=== PATIENT | male | born 1970 | race Hispanic/Latino ===

== ENCOUNTER 2018-05-01 07:42 | Emergency (ER) | payer OTHER ==
[~2018-05-01 07:42] MED LIST: LACT10SO9 PO
[2018-05-01] MEDS ORDERED: SODIUM CHLORIDE 0.9% 500ML 500 ML IV ONE (07:59)
[2018-05-01 08:13] LABS: BASOPHILS % (AUTO) 0.4 % (0.0-5.0); EOSINOPHILS % (AUTO) 0.2 % (0.0-8.0); HEMATOCRIT 27.3 % (42-54); LYMPHOCYTES % (AUTO) 4.8 % (21.0-51.0); MEAN CORPUSCULAR HEMOGLOBIN 26.7 pg (27.0-33.0); MEAN CORPUSCULAR HGB CONC 30.2 g/dL (32.0-36.0); MEAN CORPUSCULAR VOLUME 88.3 fL (79-99); MONOCYTES % (AUTO) 9.2 % (3.0-13.0); NEUTROPHILS % (AUTO) 85.4 % (40.0-77.0); PLATELET COUNT (AUTO) 349 K/uL (130-400); RED BLOOD CELL COUNT(AUTO) 3.09 MIL/uL (4.50-6.20); RED CELL DISTRIBUTION WIDTH 16.3 % (11.0-15.5); WHITE BLOOD COUNT (AUTO) 26.4 K/uL (4.8-10.8)
[2018-05-01 08:23] LABS: CARBON DIOXIDE 16 mmol/L (21-32); CHLORIDE 93 mmol/L (101-111); CREATININE 1.5 mg/dL (0.5-1.5); GLOMERULAR FILTR. RATE CALC 54 mL/min (>60); GLUCOSE,RANDOM 135 mg/dL (70-105); POTASSIUM 3.7 mmol/L (3.5-5.1); SODIUM SERUM 125 mmol/L (136-145); UREA NITROGEN, BLOOD 7 mg/dL (7-18)
[2018-05-01 08:24] LABS: APPEARANCE,URINE Cloudy (CLEAR); BILIRUBIN,URINE Moderate (NEGATIVE); COLOR,URINE Dark Yellow (YELLOW); GLUCOSE, URINE (UA) Negative (NEGATIVE); KETONES,URINE Negative (NEGATIVE); LEUKOCYTE ESTERASE ,URINE Trace (NEGATIVE); NITRATE,URINE Negative (NEGATIVE); OCCULT BLOOD,URINE Negative (NEGATIVE); PROTEIN,URINE POS 2+ (NEGATIVE)
[2018-05-01] MEDS ORDERED: MIDAZOLAM HCL 1 MG/ML 2ML VIAL ONE (08:25)
[2018-05-01 08:27] LABS: ALANINE AMINOTRANSFERASE 55 U/L (12-78); ALBUMIN 1.8 g/dL (3.5-5.0); ASPARTATE AMINOTRANSFERASE 189 U/L (10-37); BILIRUBIN,TOTAL 4.8 mg/dL (0.2-1.0); LIPASE 75 U/L (114-286); TOTAL PROTEIN, SERUM 7.7 g/dL (6.0-8.3)
[2018-05-01] MEDS ORDERED: PROPOFOL 1000 MG/100 ML 100 ML IV ONE ×2 (08:29→09:05)
[2018-05-01 08:32] LABS: AMPHET/METH SCREEN,URINE NEGATIVE (NEGATIVE); BARBITURATE SCREEN, URINE NEGATIVE (NEGATIVE); BENZODIAZEPINES SCREEN,URINE NEGATIVE (NEGATIVE); CANNABINOID SCREEN,URINE NEGATIVE (NEGATIVE); COCAINE SCREEN,URINE NEGATIVE (NEGATIVE); OPIATE SCREEN,URINE POSITIVE (NEGATIVE); PHENCYCLIDINE SCREEN,URINE NEGATIVE (NEGATIVE)
[2018-05-01 08:32] LABS: ALCOHOL, BLOOD < 3 mg/dL (0-10); AMMONIA 114 umol/L (11-32)
[2018-05-01 08:39] LABS: BACTERIA,URINE None Seen /HPF (None Seen); RBC,URINE 0-1 /HPF (0-1); SQUAMOUS EPITHELIAL CELL,UR 0-2 /HPF (0-2); WBC,URINE 0-1 /HPF (0-1)
[2018-05-01 08:40] LABS: AMORPHOUS SEDIMENT,UR Moderate /LPF (None Seen); HYALINE CASTS, URINE 0-1 /LPF (0-1 /LPF)
[2018-05-01 08:40] LABS: CREATINE KINASE MB 2.4 ng/mL (0.5-3.6); TROPONIN I 0.06 ng/mL (0.00-0.06)
[2018-05-01] MEDS ORDERED: SODIUM CHLORIDE 0.9% 100 ML IV ONE ×2 (08:49→12:04)
[2018-05-01] MEDS ORDERED: ZOSYN 3.375GM+NS 50ML 50 ML IV ONE (08:49)
[2018-05-01] MEDS ORDERED: CEFTRIAXONE SODIUM 1 GM ONE (08:49)
[2018-05-01] MEDS ORDERED: SODIUM CHLORIDE 0.9% 1000ML 1,000 ML IV ONE ×3 (08:54→12:26)
[2018-05-01 09:11] LABS: ABG BASE EXCESS -11.8 mmol/L (-2.0-3.0); ABG HCO3 15.8 mmol/L (21.0-28.0); ABG OXYGEN SATURATION 99.8 % (95.0-99.0); ABG PCO2 42 mmHg (35-48)
[2018-05-01] MEDS ORDERED: MIDAZOLAM HCL 5 MG/ML 2ML VIAL IV ONE (09:32)
[2018-05-01] MEDS ORDERED: MIDAZOLAM 100MG-0.9% NS 100ML 100 ML IV PRN (10:00)
[2018-05-01] MEDS ORDERED: SODIUM CHLORIDE 0.9% 250 ML IV ONE (10:35)
[2018-05-01] MEDS ORDERED: NOREPINEPHRINE BITARTRATE 1 MG/1 ML ML IV ONE (10:35)
[2018-05-01] MEDS ORDERED: FAMOTIDINE/PF 20 MG/2 ML VIAL IV ONE (12:02)
[2018-05-01] MEDS ORDERED: FOSPHENYTOIN SODIUM 500 MG/10ML VIAL IJ ONE (12:03)
[2018-05-01 14:37] LABS: POTASSIUM 3.1 mmol/L (3.5-5.1)
[2018-05-01] MEDS ORDERED: PROPOFOL 1000 MG/100 ML 100 ML IV PRN (18:15)
== END 2018-05-01 15:13 | disposition short-term general hospital (02) ==
LOC: EDH 07:42
DX: A41.9 Sepsis, unspecified organism (principal); R65.20 Severe sepsis without septic shock; G40.901 Epilepsy, unspecified, not intractable, with status epilepticus; J18.9 Pneumonia, unspecified organism; F10.10 Alcohol abuse, uncomplicated
CPT/HCPCS: 31500; 36415; 36600; 70450; 71045 ×2; 80048; 80053; 80305; 81001; 82140; 82270; 82550; 82553; 82803; 83605 ×3; 83690; 83874; 84484; 85025; 87040 ×2; 87071; 87106; 87205; 93005; 96361; 96365; 96374; 96375; 99291; 99292; G0480; J0696; J2250; J2543; J2704 ×2; J3490 ×2; J7030 ×4; J7040; Q2009; 94002

== ENCOUNTER 2018-09-28 08:44 | Emergency (ER) | payer SELFPAY | END 2018-09-28 10:53 | disposition home or self-care (01) | LOC: EDH 08:44 | DX: S63.501A Unspecified sprain of right wrist, initial encounter (principal); S60.221A Contusion of right hand, initial encounter; F10.10 Alcohol abuse, uncomplicated; Z72.0 Tobacco use; W11.XXXA Fall on and from ladder, initial encounter; Y93.89 Activity, other specified; Y92.89 Other specified places as the place of occurrence of the external cause; Y99.8 Other external cause status | CPT/HCPCS: 70450; 73090; 73110; 73130 ==

== ENCOUNTER 2018-10-31 14:30 | Emergency (ER) | payer SELFPAY ==
[2018-10-31] MEDS ORDERED: LACTATED RINGERS 1000ML 1,000 ML IV ONE ×2 (16:08→16:52)
[2018-10-31 16:15] LABS: BASOPHILS % (AUTO) 0.9 % (0.0-5.0); EOSINOPHILS % (AUTO) 3.1 % (0.0-8.0); HEMATOCRIT 27.5 % (42-54); LYMPHOCYTES % (AUTO) 30.1 % (21.0-51.0); MEAN CORPUSCULAR HEMOGLOBIN 26.7 pg (27.0-33.0); MEAN CORPUSCULAR HGB CONC 32.7 g/dL (32.0-36.0); MEAN CORPUSCULAR VOLUME 81.6 fL (79-99); MONOCYTES % (AUTO) 17.7 % (3.0-13.0); NEUTROPHILS % (AUTO) 48.2 % (40.0-77.0); NUCLEATED RED BLOOD CELLS 0.1 % (0.0-0.19); PLATELET COUNT (AUTO) 78 K/uL (130-400); RED BLOOD CELL COUNT(AUTO) 3.37 MIL/uL (4.50-6.20); RED CELL DISTRIBUTION WIDTH 18.6 % (11.0-15.5); WHITE BLOOD COUNT (AUTO) 5.5 K/uL (4.8-10.8)
[2018-10-31 16:23] LABS: CREATININE 0.9 mg/dL (0.5-1.5); POTASSIUM 3.5 mmol/L (3.5-5.1)
[2018-10-31 16:25] LABS: INR 1.19 (0.85-1.15); PARTIAL THROMBOPLASTIN TIME 30.8 SEC (26.3-35.5); PROTHROMBIN TIME 12.5 SEC (9.6-11.6)
[2018-10-31 16:46] LABS: ALBUMIN 2.8 g/dL (3.5-5.0); BILIRUBIN,TOTAL 2.4 mg/dL (0.2-1.0); MAGNESIUM 1.8 mg/dL (1.80-2.40); TOTAL PROTEIN, SERUM 8.5 g/dL (6.0-8.3)
[2018-10-31 18:17] LABS: APPEARANCE,URINE Clear (CLEAR); BILIRUBIN,URINE Negative (NEGATIVE); COLOR,URINE Yellow (YELLOW); GLUCOSE, URINE (UA) Negative (NEGATIVE); KETONES,URINE Trace mg/dL (NEGATIVE); LEUKOCYTE ESTERASE ,URINE Negative (NEGATIVE); NITRATE,URINE Negative (NEGATIVE); OCCULT BLOOD,URINE Negative (NEGATIVE); PH,URINE 6.5 (5.0-8.0); PROTEIN,URINE Negative (NEGATIVE)
[2018-10-31 18:25] LABS: AMPHET/METH SCREEN,URINE NEGATIVE (NEGATIVE); BARBITURATE SCREEN, URINE NEGATIVE (NEGATIVE); BENZODIAZEPINES SCREEN,URINE NEGATIVE (NEGATIVE); CANNABINOID SCREEN,URINE NEGATIVE (NEGATIVE); COCAINE SCREEN,URINE POSITIVE (NEGATIVE); OPIATE SCREEN,URINE NEGATIVE (NEGATIVE); PHENCYCLIDINE SCREEN,URINE NEGATIVE (NEGATIVE)
== END 2018-10-31 17:52 | disposition left against medical advice (07) ==
LOC: EDH 14:30
DX: M62.82 Rhabdomyolysis (principal); F10.10 Alcohol abuse, uncomplicated; F41.9 Anxiety disorder, unspecified; R79.1 Abnormal coagulation profile; Z72.0 Tobacco use; Z79.899 Other long term (current) drug therapy
CPT/HCPCS: 36415; 80053; 80305; 81003; 82550; 83735; 84484; 85025; 85610; 85730; 93005; 96360; 96361; 99284; G0480; J7120 ×2

== ENCOUNTER 2018-11-27 15:56 | Emergency (ER) | payer OTHER | END 2018-11-27 16:42 | disposition home or self-care (01) | LOC: EDH 15:56 | DX: S82.832A Other fracture of upper and lower end of left fibula, initial encounter for closed fracture (principal); F41.9 Anxiety disorder, unspecified; K74.60 Unspecified cirrhosis of liver; Z72.0 Tobacco use; Y00.XXXA Assault by blunt object, initial encounter; Y93.89 Activity, other specified; Y92.098 Other place in other non-institutional residence as the place of occurrence of the external cause; Y99.8 Other external cause status | CPT/HCPCS: 29515; 73610 ==

== ENCOUNTER 2019-07-01 21:36 | Emergency (ER) | payer SELFPAY | END 2019-07-01 23:27 | disposition left against medical advice (07) | LOC: EDH 21:36 | DX: S09.8XXA Other specified injuries of head, initial encounter (principal); M54.9 Dorsalgia, unspecified; F41.9 Anxiety disorder, unspecified; K74.60 Unspecified cirrhosis of liver; Y04.0XXA Assault by unarmed brawl or fight, initial encounter; Y93.89 Activity, other specified; Y92.89 Other specified places as the place of occurrence of the external cause; Y99.8 Other external cause status ==

== ENCOUNTER 2019-07-04 11:10 | Inpatient (IN) | payer OTHER ==
[~2019-07-04] VITALS: Ht 175.3 cm; Wt 79.3 kg
[2019-07-04] MEDS ORDERED: LORAZEPAM 2 MG/ML 1 ML VIAL ONE (11:13)
[2019-07-04 11:28] LABS: BASOPHILS % (AUTO) 1.1 % (0.0-5.0); EOSINOPHILS % (AUTO) 2.9 % (0.0-8.0); HEMATOCRIT 35.2 % (42-54); LYMPHOCYTES % (AUTO) 26.2 % (21.0-51.0); MEAN CORPUSCULAR HEMOGLOBIN 30.5 pg (27.0-33.0); MEAN CORPUSCULAR HGB CONC 33.6 g/dL (32.0-36.0); MEAN CORPUSCULAR VOLUME 90.9 fL (79-99); MONOCYTES % (AUTO) 12.1 % (3.0-13.0); NEUTROPHILS % (AUTO) 57.7 % (40.0-77.0); NUCLEATED RED BLOOD CELLS 0.1 % (0.0-0.19); PLATELET COUNT (AUTO) 56 K/uL (130-400); RED BLOOD CELL COUNT(AUTO) 3.87 MIL/uL (4.50-6.20); WHITE BLOOD COUNT (AUTO) 7.1 K/uL (4.8-10.8)
[2019-07-04] MEDS ORDERED: FOSPHENYTOIN SODIUM 500 MG/10ML VIAL IJ ONE (11:39)
[2019-07-04] MEDS ORDERED: SODIUM CHLORIDE 0.9% 250 ML IV ONE (11:41)
[2019-07-04 11:46] LABS: CREATININE 0.8 mg/dL (0.5-1.5); POTASSIUM 3.7 mmol/L (3.5-5.1)
[2019-07-04 11:48] LABS: INR 1.13 (0.85-1.15); PARTIAL THROMBOPLASTIN TIME 27.5 SEC (26.3-35.5); PROTHROMBIN TIME 11.8 SEC (9.6-11.6)
[2019-07-04 11:51] LABS: ALBUMIN 3.3 g/dL (3.5-5.0); BILIRUBIN,TOTAL 1.5 mg/dL (0.2-1.0); TOTAL PROTEIN, SERUM 8.7 g/dL (6.0-8.3)
[2019-07-04 14:29] LABS: AMPHET/METH SCREEN,URINE NEGATIVE (NEGATIVE); BARBITURATE SCREEN, URINE NEGATIVE (NEGATIVE); BENZODIAZEPINES SCREEN,URINE NEGATIVE (NEGATIVE); CANNABINOID SCREEN,URINE NEGATIVE (NEGATIVE); COCAINE SCREEN,URINE NEGATIVE (NEGATIVE); OPIATE SCREEN,URINE NEGATIVE (NEGATIVE); PHENCYCLIDINE SCREEN,URINE NEGATIVE (NEGATIVE)
[2019-07-04 16:40] VITALS: BP 137/84
[2019-07-04] MEDS ORDERED: SODIUM CHLORIDE 0.9% 1000ML 1,000 ML IV ONE (17:00)
[2019-07-04 19:00] VITALS: BP 150/91
[2019-07-04] MEDS ORDERED: CHLORDIAZEPOXIDE HCL 25 MG CAP PO PRN ×2 (19:45)
[2019-07-04] MEDS ORDERED: LORAZEPAM 2 MG/ML 1 ML VIAL IVP PRN ×2 (19:45)
[2019-07-04] MEDS ORDERED: PHARMACY COMMUNICATION MISC PRN (19:45)
[2019-07-04] MEDS ORDERED: THIAMINE HCL 100 MG, FOLIC ACID 1 MG, M.V.I. IV [ADULT] 10 ML in SODIUM CHLORIDE 0.9% 1... IV SCH (19:45)
[2019-07-04] MEDS ORDERED: ONDANSETRON HCL 4 MG/2 ML VIAL IV PRN (19:45)
--- NOTE | 2019-07-04 20:30 | NUR ---
Called [facility] pharmacy to request med list, location closed for the evening. Reported to Mario Blake RN, nightshift to follow up with pharmacy list for home medications to be entered and reconciled in AM. Addendum: 07/04/19 at 2121 by EVIN ROBERTSON RN RN [facility] pharmacy in [place], [place].
[2019-07-05] VITALS: BP 151/80
[2019-07-05 04:00] VITALS: BP 143/83
[2019-07-05] MEDS ORDERED: 1/2 NORMAL SALINE 1,000 ML IV SCH (04:00)
[2019-07-05 05:32] LABS: CREATININE 0.8 mg/dL (0.5-1.5); POTASSIUM 3.5 mmol/L (3.5-5.1)
[2019-07-05] MEDS ORDERED: POTASSIUM CHLORIDE 20MEQ/100ML 100 ML IV PRN (05:45)
[2019-07-05] MEDS ORDERED: POTASSIUM CHLORIDE 10% ELIXIR 20 MEQ/15 ML UDCUP PO PRN (05:45)
[2019-07-05] MEDS ORDERED: LIDOCAINE HCL-MPF 1% 2ML VIAL IV PRN (05:45)
[2019-07-05] MEDS ORDERED: POTASSIUM CHLORIDE 20 MEQ ERTAB PO PRN (05:45)
[2019-07-05 08:00] VITALS: BP 152/86
[2019-07-05] MEDS ORDERED: THIAMINE HCL 100 MG TABLET PO SCH (09:00)
[2019-07-05] MEDS ORDERED: ENOXAPARIN SODIUM 40 MG/0.4 ML SYRINGE SQ SCH (09:00)
[2019-07-05] MEDS ORDERED: FAMOTIDINE 20MG TAB 20 MG TAB PO SCH (09:00)
[2019-07-05] MEDS ORDERED: FLU VACC QS2019-20 36MOS UP/PF 60 MCG/0.5 ML ML IM ONE (09:00)
[2019-07-05] MEDS ORDERED: FLU VACC QUAD 2019-20(6MOS UP) 60 MCG/0.5 ML VIAL IM SCH (09:00)
[2019-07-05 11:58] VITALS: BP 145/68
--- NOTE | 2019-07-05 12:00 | NUR ---
ANGELO NOTES PT IN RESTROOM EARLIER, WILL TRY AGAIN LATER, TRIGGERS TO CM Addendum: 07/07/19 at 1201 by DILMA CHEN RN CM Amended: Links added.
[2019-07-05] MEDS ORDERED: LEVETIRACETAM 500 MG TABLET PO SCH (13:15)
[2019-07-05 16:00] VITALS: BP 147/89
--- NOTE | 2019-07-05 19:08 | NUR ---
pt decided not to stay and left AMA. in no distress, does not want to wait for tomorrow, states feels in good condition to leave home ama. at bedside.
== END 2019-07-05 19:08 | disposition left against medical advice (07) | DRG 101 ==
LOC: EDH 11:10 → OBSVTOIN 11:11 → EDHIP 11:11 → 3BH 16:48
PROVIDERS: ADMIT Family Medicine; ATTEND Family Medicine
DX: G40.509 Epileptic seizures related to external causes, not intractable, without status epilepticus (principal); S09.90XA Unspecified injury of head, initial encounter; X58.XXXA Exposure to other specified factors, initial encounter; K74.60 Unspecified cirrhosis of liver; Y90.4 Blood alcohol level of 80-99 mg/100 ml; F10.20 Alcohol dependence, uncomplicated; Z91.14 Patient's other noncompliance with medication regimen; Y93.89 Activity, other specified; Y92.89 Other specified places as the place of occurrence of the external cause; Y99.8 Other external cause status; Z23 Encounter for immunization
CPT/HCPCS: 36415; 70450; 70486; 72125; 80048; 80053; 80305; 85025; 85610; 85730; G0378; G0480; J1650; J2060; J3411; J3490; J7030; Q2009; Q2036

== ENCOUNTER 2019-07-16 17:31 | Emergency (ER) | payer SELFPAY ==
[2019-07-16 18:03] LABS: BASOPHILS % (AUTO) 3.5 % (0.0-5.0); EOSINOPHILS % (AUTO) 4.1 % (0.0-8.0); HEMATOCRIT 32.2 % (42-54); MEAN CORPUSCULAR HEMOGLOBIN 30.9 pg (27.0-33.0); MEAN CORPUSCULAR HGB CONC 33.8 g/dL (32.0-36.0); MEAN CORPUSCULAR VOLUME 91.5 fL (79-99); MONOCYTES % (AUTO) 10.8 % (3.0-13.0); NEUTROPHILS % (AUTO) 41.6 % (40.0-77.0); PLATELET COUNT (AUTO) 118 K/uL (130-400); RED BLOOD CELL COUNT(AUTO) 3.52 MIL/uL (4.50-6.20); RED CELL DISTRIBUTION WIDTH 16.3 % (11.0-15.5)
[2019-07-16 18:16] LABS: CREATININE 0.7 mg/dL (0.5-1.5); POTASSIUM 3.7 mmol/L (3.5-5.1)
[2019-07-16 18:18] LABS: APPEARANCE,URINE Clear (CLEAR); BILIRUBIN,URINE Negative (NEGATIVE); COLOR,URINE Yellow (YELLOW); GLUCOSE, URINE (UA) Negative (NEGATIVE); KETONES,URINE Negative (NEGATIVE); LEUKOCYTE ESTERASE ,URINE Negative (NEGATIVE); NITRATE,URINE Negative (NEGATIVE); OCCULT BLOOD,URINE Negative (NEGATIVE); PROTEIN,URINE Negative (NEGATIVE)
[2019-07-16 18:21] LABS: ALBUMIN 2.9 g/dL (3.5-5.0)
[2019-07-16 18:23] LABS: AMPHET/METH SCREEN,URINE NEGATIVE (NEGATIVE); BARBITURATE SCREEN, URINE NEGATIVE (NEGATIVE); BENZODIAZEPINES SCREEN,URINE NEGATIVE (NEGATIVE); CANNABINOID SCREEN,URINE NEGATIVE (NEGATIVE); COCAINE SCREEN,URINE NEGATIVE (NEGATIVE); OPIATE SCREEN,URINE NEGATIVE (NEGATIVE); PHENCYCLIDINE SCREEN,URINE NEGATIVE (NEGATIVE)
[2019-07-16] MEDS ORDERED: LEVETIRACETAM 500 MG TABLET PO ONE (18:29)
== END 2019-07-16 19:00 | disposition left against medical advice (07) ==
LOC: EDH 17:31
DX: S02.2XXA Fracture of nasal bones, initial encounter for closed fracture (principal); G40.909 Epilepsy, unspecified, not intractable, without status epilepticus; R03.0 Elevated blood-pressure reading, without diagnosis of hypertension; Z91.14 Patient's other noncompliance with medication regimen; X58.XXXA Exposure to other specified factors, initial encounter; Y93.89 Activity, other specified; Y92.89 Other specified places as the place of occurrence of the external cause; Y99.8 Other external cause status
CPT/HCPCS: 36415; 70450; 70486; 80053; 80305; 81003; 85025; 93005

== ENCOUNTER 2019-09-30 15:40 | Emergency (ER) | payer SELFPAY ==
[2019-09-30] MEDS ORDERED: LEVETIRACETAM 500 MG TABLET PO ONE ×2 (16:23→16:25)
== END 2019-09-30 17:21 | disposition home or self-care (01) ==
LOC: EDH 15:40
DX: G40.509 Epileptic seizures related to external causes, not intractable, without status epilepticus (principal); F41.9 Anxiety disorder, unspecified; Z72.0 Tobacco use

== ENCOUNTER 2019-11-17 17:12 | Emergency (ER) | payer SELFPAY ==
[2019-11-17] MEDS ORDERED: THIAMINE HCL 100 MG/ML 2ML VIAL ONE (18:40)
[2019-11-17] MEDS ORDERED: LEVETIRACETAM 500 MG TABLET PO ONE (18:44)
== END 2019-11-17 19:23 | disposition home or self-care (01) ==
LOC: EDH 17:12
DX: G40.89 Other seizures (principal); F10.10 Alcohol abuse, uncomplicated; F41.9 Anxiety disorder, unspecified; Z79.899 Other long term (current) drug therapy
CPT/HCPCS: 96374; 99283; J3411

== ENCOUNTER 2019-11-22 11:09 | Inpatient (IN) | payer OTHER ==
[~2019-11-22] VITALS: Ht 175.3 cm; Wt 83.1 kg
[2019-11-22] MEDS ORDERED: CEFTRIAXONE SODIUM 2 GM VIAL ONE (11:33)
[2019-11-22] MEDS ORDERED: FOSPHENYTOIN SODIUM 500 MG/10ML VIAL IJ ONE (11:34)
[2019-11-22] MEDS ORDERED: SODIUM CHLORIDE 0.9% 1000ML 1,000 ML IV ONE ×2 (11:34→20:40)
[2019-11-22] MEDS ORDERED: SODIUM CHLORIDE 0.9% 250 ML IV ONE (11:35)
[2019-11-22 11:56] LABS: BASOPHILS % (AUTO) 1.4 % (0.0-5.0); EOSINOPHILS % (AUTO) 0.4 % (0.0-8.0); LYMPHOCYTES % (AUTO) 5.1 % (21.0-51.0); MEAN CORPUSCULAR HEMOGLOBIN 26.2 pg (27.0-33.0); MEAN CORPUSCULAR HGB CONC 32.1 g/dL (32.0-36.0); MEAN CORPUSCULAR VOLUME 81.7 fL (79-99); MONOCYTES % (AUTO) 8.5 % (3.0-13.0); NEUTROPHILS % (AUTO) 84.2 % (40.0-77.0); PLATELET COUNT (AUTO) 43 K/uL (130-400); RED BLOOD CELL COUNT(AUTO) 3.55 MIL/uL (4.50-6.20); RED CELL DISTRIBUTION WIDTH 18.8 % (11.0-15.5); WHITE BLOOD COUNT (AUTO) 5.1 K/uL (4.8-10.8)
[2019-11-22 11:57] LABS: CARBON DIOXIDE 21 mmol/L (21-32); CHLORIDE 100 mmol/L (101-111); GLOMERULAR FILTR. RATE CALC 85 mL/min (>60); GLUCOSE,RANDOM 107 mg/dL (70-105); POTASSIUM 3.6 mmol/L (3.5-5.1); SODIUM SERUM 137 mmol/L (136-145); UREA NITROGEN, BLOOD 6 mg/dL (7-18)
[2019-11-22 12:09] LABS: INR 1.16 (0.85-1.15); PARTIAL THROMBOPLASTIN TIME 25.6 SEC (26.3-35.5); PROTHROMBIN TIME 12.5 SEC (9.6-11.6)
[2019-11-22 12:10] LABS: RAPID GROUP A STREP NEGATIVE (NEGATIVE)
[2019-11-22] MEDS ORDERED: LORAZEPAM 2 MG/ML 1 ML VIAL ONE (12:16)
[2019-11-22] MEDS ORDERED: ACETAMINOPHEN 650 MG SUPPOSITORY RC ONE (12:16)
[2019-11-22 12:22] LABS: ALANINE AMINOTRANSFERASE 44 U/L (12-78); ALBUMIN 3.3 g/dL (3.5-5.0); ASPARTATE AMINOTRANSFERASE 143 U/L (10-37); BILIRUBIN,TOTAL 2.2 mg/dL (0.2-1.0); MYOGLOBIN 318 ng/mL (10-92); TROPONIN I < 0.04 ng/mL (0.00-0.06)
[2019-11-22 12:24] LABS: APPEARANCE,URINE Clear (CLEAR); BILIRUBIN,URINE Negative (NEGATIVE); COLOR,URINE Yellow (YELLOW); GLUCOSE, URINE (UA) Negative (NEGATIVE); KETONES,URINE Trace mg/dL (NEGATIVE); LEUKOCYTE ESTERASE ,URINE Negative (NEGATIVE); NITRATE,URINE Negative (NEGATIVE); OCCULT BLOOD,URINE Trace (NEGATIVE); PROTEIN,URINE POS 1+ mg/dL (NEGATIVE)
[2019-11-22 12:24] LABS: CREATINE KINASE, TOTAL 1727 U/L (21-232)
[2019-11-22 12:30] LABS: AMPHET/METH SCREEN,URINE NEGATIVE (NEGATIVE); BARBITURATE SCREEN, URINE NEGATIVE (NEGATIVE); BENZODIAZEPINES SCREEN,URINE NEGATIVE (NEGATIVE); CANNABINOID SCREEN,URINE NEGATIVE (NEGATIVE); COCAINE SCREEN,URINE NEGATIVE (NEGATIVE); OPIATE SCREEN,URINE NEGATIVE (NEGATIVE); PHENCYCLIDINE SCREEN,URINE NEGATIVE (NEGATIVE)
[2019-11-22 12:43] LABS: BACTERIA,URINE Rare /HPF (None Seen); RBC,URINE 0-1 /HPF (0-1); SQUAMOUS EPITHELIAL CELL,UR Rare /HPF (0-2); WBC,URINE 0-1 /HPF (0-1)
[2019-11-22] MEDS ORDERED: ACETAMINOPHEN EXTRA STRENGTH 500 MG TABLET ONE (15:57)
[2019-11-22] MEDS: SODIUM CHLORIDE 0.9% 1000ML 1,000 ML IV SCH (17:23)
[2019-11-22] MEDS: CEFTRIAXONE SODIUM 1 GM IV SCH (17:30)
[2019-11-22] MEDS: THIAMINE HCL 100 MG, FOLIC ACID 1 MG, M.V.I. IV [ADULT] 10 ML in SODIUM CHLORIDE 0.9% 1... IV SCH (17:30)
[2019-11-22] MEDS ORDERED: ACETAMINOPHEN-CODEINE 300/30MG TAB PO PRN (17:30)
[2019-11-22] MEDS ORDERED: ONDANSETRON HCL 4 MG/2 ML VIAL IV PRN (17:30)
[2019-11-22] MEDS ORDERED: ACETAMINOPHEN 325 MG TAB PO PRN (17:30)
[2019-11-22] MEDS ORDERED: HYDRALAZINE HCL 20 MG/ML VIAL IV PRN (17:30)
[2019-11-22] MEDS ORDERED: PHARMACY COMMUNICATION MISC PRN (17:30)
[2019-11-22 18:31] LABS: MAGNESIUM 1.4 mg/dL (1.80-2.40); PHOSPHORUS 2.2 mg/dL (2.5-4.9)
[2019-11-22] MEDS: LEVOFLOXACIN 500 MG/D5W 100 ML 100 ML IV SCH (20:00)
[2019-11-22 20:25] LABS: ABG BASE EXCESS 4.5 mmol/L (-2.0-3.0); ABG HCO3 26.8 mmol/L (21.0-28.0); ABG OXYGEN SATURATION 95.5 % (95.0-99.0); ABG PCO2 33 mmHg (35-48)
[2019-11-22] MEDS ORDERED: LEVOFLOXACIN 500 MG/D5W 100 ML 100 ML ONE (20:38)
[2019-11-22] MEDS ORDERED: FAMOTIDINE/PF 20 MG/2 ML VIAL IV ONE (20:40)
[2019-11-22] MEDS: FAMOTIDINE/PF 20 MG/2 ML VIAL IV SCH (21:00)
[2019-11-22] MEDS ORDERED: MAGNESIUM 2GM PREMIX 50ML 50 ML IV ONE (21:34)
[2019-11-22 22:09] LABS: AMMONIA 37 umol/L (11-32)
[2019-11-22 22:38] VITALS: BP 137/82
[2019-11-23] MEDS: CHLORDIAZEPOXIDE HCL 25 MG CAP PO PRN ×3 (00:53→23:22)
[2019-11-23 03:12] VITALS: BP 152/82
[2019-11-23] MEDS: SODIUM CHLORIDE 0.9% 1000ML 1,000 ML IV SCH ×3 (03:23→23:23)
[2019-11-23 05:15] LABS: BASOPHILS % (AUTO) 1.1 % (0.0-5.0); EOSINOPHILS % (AUTO) 0.2 % (0.0-8.0); HEMATOCRIT 31.8 % (42-54); LYMPHOCYTES % (AUTO) 17.8 % (21.0-51.0); MEAN CORPUSCULAR HEMOGLOBIN 26.4 pg (27.0-33.0); MEAN CORPUSCULAR HGB CONC 32.1 g/dL (32.0-36.0); MEAN CORPUSCULAR VOLUME 82.4 fL (79-99); MONOCYTES % (AUTO) 19.5 % (3.0-13.0); NEUTROPHILS % (AUTO) 61.2 % (40.0-77.0); NUCLEATED RED BLOOD CELLS 0.3 % (0.0-0.19); PLATELET COUNT (AUTO) 43 K/uL (130-400); RED BLOOD CELL COUNT(AUTO) 3.86 MIL/uL (4.50-6.20); RED CELL DISTRIBUTION WIDTH 18.6 % (11.0-15.5); WHITE BLOOD COUNT (AUTO) 6.4 K/uL (4.8-10.8)
[2019-11-23 05:26] LABS: BILIRUBIN,TOTAL 3.2 mg/dL (0.2-1.0); CREATININE 0.8 mg/dL (0.5-1.5); TOTAL PROTEIN, SERUM 8.9 g/dL (6.0-8.3)
[2019-11-23] MEDS ORDERED: POTASSIUM CHLORIDE 20 MEQ/100 ML BAG IV SCH (06:00)
[2019-11-23] MEDS ORDERED: POTASSIUM CHLORIDE 20MEQ/100ML 100 ML IV SCH (07:45)
[2019-11-23 08:00] VITALS: BP 127/79
[2019-11-23] MEDS: THIAMINE HCL 100 MG, FOLIC ACID 1 MG, M.V.I. IV [ADULT] 10 ML in SODIUM CHLORIDE 0.9% 1... IV SCH (09:00)
[2019-11-23] MEDS: FAMOTIDINE/PF 20 MG/2 ML VIAL IV SCH ×2 (09:36→21:37)
[2019-11-23] MEDS ORDERED: COMPOUND IV MISC 1 EACH IVSOLN MISC PRN ×2 (12:00→12:30)
[2019-11-23 12:32] VITALS: BP 143/99
[2019-11-23] MEDS ORDERED: POTASSIUM CHLORIDE 20 MEQ ERTAB PO SCH (12:45)
[2019-11-23] MEDS ORDERED: MAGNESIUM 4GM PREMIX 100ML 100 ML IV PRN (12:45)
[2019-11-23] MEDS: LEVETIRACETAM 1,000 MG in SODIUM CHLORIDE 0.9% 100 ML IV SCH ×2 (12:47→21:38)
[2019-11-23] MEDS: CHLORDIAZEPOXIDE HCL 25 MG CAP PO SCH ×2 (12:47→17:15)
[2019-11-23] MEDS: NEUTRA-PHOS PACKET 1 EACH PO SCH ×3 (14:19→21:00)
[2019-11-23] MEDS: LORAZEPAM 2 MG/ML 1 ML VIAL IVP PRN ×2 (14:20→18:25)
[2019-11-23] MEDS: CEFTRIAXONE SODIUM 1 GM IV SCH (16:20)
[2019-11-23 16:36] VITALS: BP 128/62
[2019-11-23 20:16] VITALS: BP 104/60
[2019-11-23 20:27] LABS: CREATININE 1.1 mg/dL (0.5-1.5); MAGNESIUM 5.8 mg/dL (1.80-2.40); POTASSIUM 3.7 mmol/L (3.5-5.1)
[2019-11-23] MEDS: LEVOFLOXACIN 500 MG/D5W 100 ML 100 ML IV SCH (21:38)
[2019-11-23] MEDS ORDERED: ZIPRASIDONE MESYLATE 20 MG/VIAL IM PRN (23:15)
[2019-11-24] VITALS: BP 139/83
[2019-11-24] MEDS: LORAZEPAM 2 MG/ML 1 ML VIAL IVP PRN ×3 (00:24→19:42)
[2019-11-24 04:33] VITALS: BP 129/89
[2019-11-24 05:27] LABS: BASOPHILS % (AUTO) 1.6 % (0.0-5.0); EOSINOPHILS % (AUTO) 2.1 % (0.0-8.0); HEMATOCRIT 29.5 % (42-54); LYMPHOCYTES % (AUTO) 18.6 % (21.0-51.0); MEAN CORPUSCULAR HEMOGLOBIN 25.6 pg (27.0-33.0); MEAN CORPUSCULAR HGB CONC 30.2 g/dL (32.0-36.0); MONOCYTES % (AUTO) 21.1 % (3.0-13.0); NEUTROPHILS % (AUTO) 56.2 % (40.0-77.0); PLATELET COUNT (AUTO) 46 K/uL (130-400); RED BLOOD CELL COUNT(AUTO) 3.47 MIL/uL (4.50-6.20); RED CELL DISTRIBUTION WIDTH 19.3 % (11.0-15.5); WHITE BLOOD COUNT (AUTO) 5.6 K/uL (4.8-10.8)
[2019-11-24] MEDS: CHLORDIAZEPOXIDE HCL 25 MG CAP PO SCH ×3 (05:44→17:02)
[2019-11-24 05:56] LABS: CREATININE 0.9 mg/dL (0.5-1.5); MAGNESIUM 2.2 mg/dL (1.80-2.40); PHOSPHORUS 2.1 mg/dL (2.5-4.9); THYROID STIMULATING HORMONE 1.5 uIU/mL (0.36-3.74)
[2019-11-24 08:04] VITALS: BP 143/77
[2019-11-24] MEDS: NEUTRA-PHOS PACKET 1 EACH PO SCH (09:00)
[2019-11-24] MEDS: FAMOTIDINE/PF 20 MG/2 ML VIAL IV SCH ×2 (09:56→21:20)
[2019-11-24] MEDS: SODIUM CHLORIDE 0.9% 1000ML 1,000 ML IV SCH ×2 (09:56→19:23)
[2019-11-24] MEDS: THIAMINE HCL 100 MG, FOLIC ACID 1 MG, M.V.I. IV [ADULT] 10 ML in SODIUM CHLORIDE 0.9% 1... IV SCH (09:58)
[2019-11-24] MEDS: LEVETIRACETAM 1,000 MG in SODIUM CHLORIDE 0.9% 100 ML IV SCH ×2 (11:00→23:19)
[2019-11-24] MEDS ORDERED: PHARMACY COMMUNICATION MISC SCH (11:00)
[2019-11-24 16:55] VITALS: BP 135/81
[2019-11-24] MEDS: CEFTRIAXONE SODIUM 1 GM IV SCH (17:01)
[2019-11-24 20:00] VITALS: BP 139/75
[2019-11-24] MEDS ORDERED: CHLORDIAZEPOXIDE HCL 25 MG CAP PO SCH (21:00)
[2019-11-24] MEDS: LEVOFLOXACIN 500 MG/D5W 100 ML 100 ML IV SCH (21:20)
[2019-11-25] VITALS (7 sets, daily range): BP systolic 124–153; BP diastolic 77–90
[2019-11-25] MEDS: CHLORDIAZEPOXIDE HCL 25 MG CAP PO SCH (01:39)
[2019-11-25] MEDS: SODIUM CHLORIDE 0.9% 1000ML 1,000 ML IV SCH ×2 (05:23→21:19)
[2019-11-25 05:28] LABS: BASOPHILS % (AUTO) 1.7 % (0.0-5.0); EOSINOPHILS % (AUTO) 2.9 % (0.0-8.0); HEMATOCRIT 28.8 % (42-54); LYMPHOCYTES % (AUTO) 20.2 % (21.0-51.0); MEAN CORPUSCULAR HEMOGLOBIN 26.6 pg (27.0-33.0); MEAN CORPUSCULAR HGB CONC 32.3 g/dL (32.0-36.0); MEAN CORPUSCULAR VOLUME 82.5 fL (79-99); MONOCYTES % (AUTO) 20.9 % (3.0-13.0); NEUTROPHILS % (AUTO) 53.7 % (40.0-77.0); PLATELET COUNT (AUTO) 63 K/uL (130-400); RED BLOOD CELL COUNT(AUTO) 3.49 MIL/uL (4.50-6.20); RED CELL DISTRIBUTION WIDTH 18.6 % (11.0-15.5); WHITE BLOOD COUNT (AUTO) 5.2 K/uL (4.8-10.8)
[2019-11-25 05:51] LABS: ALBUMIN 2.9 g/dL (3.5-5.0); BILIRUBIN,TOTAL 2.4 mg/dL (0.2-1.0); CREATININE 0.8 mg/dL (0.5-1.5); POTASSIUM 3.5 mmol/L (3.5-5.1); TOTAL PROTEIN, SERUM 8.2 g/dL (6.0-8.3)
[2019-11-25] MEDS: FOLIC ACID 1 MG TABLET PO SCH ×2 (11:35→21:02)
[2019-11-25] MEDS: LEVETIRACETAM 1,000 MG in SODIUM CHLORIDE 0.9% 100 ML IV SCH ×2 (11:36→22:48)
[2019-11-25] MEDS: FAMOTIDINE/PF 20 MG/2 ML VIAL IV SCH ×2 (11:36→21:02)
[2019-11-25] MEDS: THIAMINE HCL 100 MG TABLET PO SCH (11:36)
[2019-11-25] MEDS: MULTIVITAMIN TABLET PO SCH (11:36)
[2019-11-25] MEDS ORDERED: METOPROLOL TARTRATE 25 MG TAB PO SCH (12:45)
[2019-11-25] MEDS ORDERED: CHLORDIAZEPOXIDE HCL 25 MG CAP PO ONE ×2 (17:45→21:00)
[2019-11-25] MEDS: CEFTRIAXONE SODIUM 1 GM IV SCH (18:13)
[2019-11-25] MEDS: LEVOFLOXACIN 500 MG/D5W 100 ML 100 ML IV SCH (18:13)
[2019-11-25] MEDS ORDERED: MIRTAZAPINE 15 MG TABLET PO SCH (21:00)
[2019-11-25] MEDS ORDERED: CHLORDIAZEPOXIDE HCL 25 MG CAP PO SCH (21:00)
[2019-11-25] MEDS: METOPROLOL TARTRATE 25 MG TAB PO SCH (21:03)
[2019-11-26] VITALS (18 sets, daily range): BP systolic 73–157; BP diastolic 45–104
[2019-11-26] MEDS: SODIUM CHLORIDE 0.9% 1000ML 1,000 ML IV SCH ×2 (01:23→09:29)
[2019-11-26] MEDS: CHLORDIAZEPOXIDE HCL 25 MG CAP PO PRN (03:31)
[2019-11-26] MEDS: LORAZEPAM 2 MG/ML 1 ML VIAL IVP PRN (03:35)
[2019-11-26 04:32] LABS: BASOPHILS % (AUTO) 1.4 % (0.0-5.0); EOSINOPHILS % (AUTO) 3.7 % (0.0-8.0); HEMATOCRIT 30.2 % (42-54); LYMPHOCYTES % (AUTO) 21.9 % (21.0-51.0); MEAN CORPUSCULAR HEMOGLOBIN 25.8 pg (27.0-33.0); MEAN CORPUSCULAR HGB CONC 31.1 g/dL (32.0-36.0); MEAN CORPUSCULAR VOLUME 82.7 fL (79-99); MONOCYTES % (AUTO) 22.2 % (3.0-13.0); NEUTROPHILS % (AUTO) 50.5 % (40.0-77.0); PLATELET COUNT (AUTO) 77 K/uL (130-400); RED BLOOD CELL COUNT(AUTO) 3.65 MIL/uL (4.50-6.20); RED CELL DISTRIBUTION WIDTH 18.8 % (11.0-15.5); WHITE BLOOD COUNT (AUTO) 6.9 K/uL (4.8-10.8)
[2019-11-26 04:50] LABS: ALBUMIN 2.9 g/dL (3.5-5.0); BILIRUBIN,TOTAL 2.5 mg/dL (0.2-1.0); CREATININE 0.9 mg/dL (0.5-1.5); PHOSPHORUS 3.5 mg/dL (2.5-4.9); POTASSIUM 3.6 mmol/L (3.5-5.1); TOTAL PROTEIN, SERUM 8.3 g/dL (6.0-8.3)
[2019-11-26] MEDS: THIAMINE HCL 100 MG TABLET PO SCH (09:00)
[2019-11-26] MEDS: MULTIVITAMIN TABLET PO SCH (09:00)
[2019-11-26] MEDS: METOPROLOL TARTRATE 25 MG TAB PO SCH (09:00)
[2019-11-26] MEDS: FOLIC ACID 1 MG TABLET PO SCH (09:00)
[2019-11-26] MEDS: FAMOTIDINE/PF 20 MG/2 ML VIAL IV SCH ×2 (09:29→21:00)
[2019-11-26] MEDS: LEVETIRACETAM 1,000 MG in SODIUM CHLORIDE 0.9% 100 ML IV SCH ×2 (09:29→22:27)
[2019-11-26] MEDS: INSULIN HUMULIN R 100 UNIT/ML 3ML SQ SCH ×2 (16:30→20:57)
[2019-11-26] MEDS: DEXTROSE 5 % AND 0.9 % NACL 1,000 ML IV SCH (16:46)
[2019-11-26 17:39] LABS: ABG BASE EXCESS -3.1 mmol/L (-2.0-3.0); ABG HCO3 20.9 mmol/L (21.0-28.0); ABG OXYGEN SATURATION 92.6 % (95.0-99.0); ABG PCO2 34 mmHg (35-48)
[2019-11-26] MEDS: LEVOFLOXACIN 500 MG/D5W 100 ML 100 ML IV SCH (20:22)
[2019-11-26 21:14] LABS: ABG OXYGEN SATURATION 96.7 % (95.0-99.0); ABG PCO2 34 mmHg (35-48)
[2019-11-26] MEDS ORDERED: PHARMACY COMMUNICATION MISC SCH (21:30)
[2019-11-26] MEDS ORDERED: VANCOMYCIN 1GM+NS 250ML 250 ML IV SCH (21:30)
[2019-11-26] MEDS ORDERED: LACTATED RINGERS 1000ML 1,000 ML IV ONE (21:51)
[2019-11-26] MEDS: PHENOBARBITAL SODIUM 65 MG/ML ML IV SCH (22:00)
[2019-11-26] MEDS ORDERED: COMPOUND IV REFRIGERATED 1 EACH IVSOLN MISC PRN (22:15)
[2019-11-26] MEDS: LACTATED RINGERS 1000ML 1,000 ML IV SCH (22:26)
[2019-11-26] MEDS: FOLIC ACID 5 MG/ML 10 ML VIAL IV SCH (22:28)
[2019-11-26] MEDS: CEFTRIAXONE SODIUM 1 GM IVP SCH (23:14)
[2019-11-27] VITALS (30 sets, daily range): BP systolic 81–140; BP diastolic 30–97
[2019-11-27] MEDS: POTASSIUM CHLORIDE 20MEQ/100ML 100 ML IV PRN ×2 (01:29→05:10)
[2019-11-27] MEDS: LIDOCAINE HCL-MPF 1% 2ML VIAL IV PRN ×2 (01:29→05:10)
[2019-11-27] MEDS: PHENOBARBITAL SODIUM 65 MG/ML ML IV SCH ×3 (04:00→20:25)
[2019-11-27] MEDS: METOPROLOL TARTRATE 1 MG/ML 5ML VIAL IV SCH ×6 (04:00→19:02)
[2019-11-27 04:19] LABS: BASOPHILS % (AUTO) 0.9 % (0.0-5.0); EOSINOPHILS % (AUTO) 1.4 % (0.0-8.0); HEMATOCRIT 28.9 % (42-54); LYMPHOCYTES % (AUTO) 12.5 % (21.0-51.0); MEAN CORPUSCULAR HEMOGLOBIN 26.4 pg (27.0-33.0); MEAN CORPUSCULAR HGB CONC 31.8 g/dL (32.0-36.0); MONOCYTES % (AUTO) 21.9 % (3.0-13.0); PLATELET COUNT (AUTO) 83 K/uL (130-400); RED BLOOD CELL COUNT(AUTO) 3.48 MIL/uL (4.50-6.20); RED CELL DISTRIBUTION WIDTH 18.6 % (11.0-15.5); WHITE BLOOD COUNT (AUTO) 8.8 K/uL (4.8-10.8)
[2019-11-27 04:28] LABS: ALBUMIN 2.6 g/dL (3.5-5.0); BILIRUBIN,TOTAL 2.4 mg/dL (0.2-1.0); CREATININE 0.8 mg/dL (0.5-1.5); MAGNESIUM 2.8 mg/dL (1.80-2.40); PHOSPHORUS 3.4 mg/dL (2.5-4.9); POTASSIUM 3.5 mmol/L (3.5-5.1); THYROID STIMULATING HORMONE 0.47 uIU/mL (0.36-3.74); TOTAL PROTEIN, SERUM 7.6 g/dL (6.0-8.3)
[2019-11-27 04:42] LABS: ABG BASE EXCESS -3.3 mmol/L (-2.0-3.0); ABG HCO3 21.5 mmol/L (21.0-28.0); ABG OXYGEN SATURATION 95.5 % (95.0-99.0); ABG PCO2 38 mmHg (35-48)
[2019-11-27] MEDS: INSULIN HUMULIN R 100 UNIT/ML 3ML SQ SCH ×4 (06:45→21:00)
[2019-11-27] MEDS: LACTATED RINGERS 1000ML 1,000 ML IV SCH ×2 (08:42→18:14)
[2019-11-27] MEDS: FAMOTIDINE/PF 20 MG/2 ML VIAL IV SCH ×2 (09:00→20:24)
[2019-11-27] MEDS: MULTIVITAMIN TABLET PO SCH (09:00)
[2019-11-27] MEDS: CEFTRIAXONE SODIUM 1 GM IVP SCH ×2 (09:01→20:46)
[2019-11-27] MEDS: THIAMINE HCL 100 MG/ML 2ML VIAL IVP SCH (09:01)
[2019-11-27] MEDS: FOLIC ACID 5 MG/ML 10 ML VIAL IV SCH ×2 (09:39→20:24)
[2019-11-27] MEDS: LEVETIRACETAM 1,000 MG in SODIUM CHLORIDE 0.9% 100 ML IV SCH ×2 (10:22→21:59)
[2019-11-27] MEDS: DEXTROSE 5 % AND 0.9 % NACL 1,000 ML IV SCH (12:15)
[2019-11-27] MEDS ORDERED: PHARMACY COMMUNICATION MISC SCH (18:00)
[2019-11-28] VITALS (24 sets, daily range): BP systolic 85–150; BP diastolic 46–87
[2019-11-28] MEDS: ACETAMINOPHEN 325 MG TAB PO PRN ×2 (02:45→20:50)
[2019-11-28 03:55] LABS: BASOPHILS % (AUTO) 1.2 % (0.0-5.0); EOSINOPHILS % (AUTO) 4.2 % (0.0-8.0); HEMATOCRIT 27.1 % (42-54); LYMPHOCYTES % (AUTO) 16.9 % (21.0-51.0); MEAN CORPUSCULAR HEMOGLOBIN 26.1 pg (27.0-33.0); MEAN CORPUSCULAR HGB CONC 31.7 g/dL (32.0-36.0); MEAN CORPUSCULAR VOLUME 82.4 fL (79-99); MONOCYTES % (AUTO) 19.5 % (3.0-13.0); NEUTROPHILS % (AUTO) 57.7 % (40.0-77.0); PLATELET COUNT (AUTO) 86 K/uL (130-400); RED BLOOD CELL COUNT(AUTO) 3.29 MIL/uL (4.50-6.20); RED CELL DISTRIBUTION WIDTH 18.4 % (11.0-15.5); WHITE BLOOD COUNT (AUTO) 7.7 K/uL (4.8-10.8)
[2019-11-28] MEDS: METOPROLOL TARTRATE 1 MG/ML 5ML VIAL IV SCH ×4 (04:00→11:39)
[2019-11-28 04:10] LABS: ALBUMIN 2.4 g/dL (3.5-5.0); BILIRUBIN,TOTAL 1.8 mg/dL (0.2-1.0); CREATININE 0.8 mg/dL (0.5-1.5); POTASSIUM 3.6 mmol/L (3.5-5.1); TOTAL PROTEIN, SERUM 7.2 g/dL (6.0-8.3)
[2019-11-28] MEDS: LACTATED RINGERS 1000ML 1,000 ML IV SCH ×2 (04:46→14:58)
[2019-11-28] MEDS: PHENOBARBITAL SODIUM 65 MG/ML ML IV SCH ×3 (05:00→21:13)
[2019-11-28] MEDS: INSULIN HUMULIN R 100 UNIT/ML 3ML SQ SCH ×4 (07:09→20:52)
[2019-11-28] MEDS: MULTIVITAMIN TABLET PO SCH (09:15)
[2019-11-28] MEDS: FAMOTIDINE/PF 20 MG/2 ML VIAL IV SCH ×2 (09:15→21:12)
[2019-11-28] MEDS: THIAMINE HCL 100 MG/ML 2ML VIAL IVP SCH (09:15)
[2019-11-28] MEDS: CEFTRIAXONE SODIUM 1 GM IVP SCH ×2 (09:20→21:12)
[2019-11-28] MEDS: FOLIC ACID 5 MG/ML 10 ML VIAL IV SCH ×2 (09:34→21:09)
[2019-11-28] MEDS: LEVETIRACETAM 1,000 MG in SODIUM CHLORIDE 0.9% 100 ML IV SCH ×2 (10:31→22:12)
[2019-11-28] MEDS ORDERED: CHLORDIAZEPOXIDE HCL 25 MG CAP PO PRN (13:00)
[2019-11-28] MEDS ORDERED: METOPROLOL TARTRATE 25 MG TAB PO SCH (21:00)
[2019-11-29 03:31] VITALS: BP 116/66
[2019-11-29] MEDS: PHENOBARBITAL SODIUM 65 MG/ML ML IV SCH (05:00)
[2019-11-29 05:42] LABS: BASOPHILS % (AUTO) 1.9 % (0.0-5.0); EOSINOPHILS % (AUTO) 6.6 % (0.0-8.0); HEMATOCRIT 28.8 % (42-54); LYMPHOCYTES % (AUTO) 23.1 % (21.0-51.0); MEAN CORPUSCULAR HEMOGLOBIN 25.9 pg (27.0-33.0); MEAN CORPUSCULAR HGB CONC 31.3 g/dL (32.0-36.0); MONOCYTES % (AUTO) 19.3 % (3.0-13.0); NEUTROPHILS % (AUTO) 48.8 % (40.0-77.0); PLATELET COUNT (AUTO) 116 K/uL (130-400); RED BLOOD CELL COUNT(AUTO) 3.47 MIL/uL (4.50-6.20); RED CELL DISTRIBUTION WIDTH 18.1 % (11.0-15.5); WHITE BLOOD COUNT (AUTO) 5.8 K/uL (4.8-10.8)
[2019-11-29] MEDS: INSULIN HUMULIN R 100 UNIT/ML 3ML SQ SCH (05:45)
[2019-11-29 06:09] LABS: ALBUMIN 2.5 g/dL (3.5-5.0); BILIRUBIN,TOTAL 1.5 mg/dL (0.2-1.0); CREATININE 0.9 mg/dL (0.5-1.5); POTASSIUM 3.3 mmol/L (3.5-5.1); TOTAL PROTEIN, SERUM 7.5 g/dL (6.0-8.3)
[2019-11-29] MEDS ORDERED: POTASSIUM CHLORIDE 10% ELIXIR 20 MEQ/15 ML UDCUP PO PRN (06:30)
[2019-11-29] MEDS ORDERED: POTASSIUM CHLORIDE 20 MEQ ERTAB PO PRN (06:30)
[2019-11-29] MEDS ORDERED: POTASSIUM CHLORIDE 20MEQ/100ML 100 ML IV PRN (06:30)
[2019-11-29 08:19] VITALS: BP 134/75
[2019-11-29] MEDS ORDERED: MAGNESIUM 2GM PREMIX 50ML 50 ML IV SCH (08:30)
[2019-11-29] MEDS ORDERED: PHENOBARBITAL SODIUM 65 MG/ML ML IV SCH (21:00)
== END 2019-11-29 09:10 | disposition left against medical advice (07) | DRG 101 ==
LOC: EDH 11:09 → EDHIP 11:10 → 2DH 20:44 → 4CH 11-24 10:54 → 3AH 11-25 20:32 → 2BH 11-26 19:19 → 3BH 11-28 17:43
PROVIDERS: ADMIT Internal Medicine; ATTEND Internal Medicine
PROC: 5A09357 Assistance with Respiratory Ventilation, Less than 24 Consecutive Hours, Continuous Positive Airway Pressure (ICD-10-PCS; principal; 2019-11-26)
PROC: 5A09357 Assistance with Respiratory Ventilation, Less than 24 Consecutive Hours, Continuous Positive Airway Pressure (ICD-10-PCS; 2019-11-27)
PROC: 5A09357 Assistance with Respiratory Ventilation, Less than 24 Consecutive Hours, Continuous Positive Airway Pressure (ICD-10-PCS; 2019-11-28)
DX: G40.909 Epilepsy, unspecified, not intractable, without status epilepticus (principal); F10.239 Alcohol dependence with withdrawal, unspecified; E87.2 Acidosis; E87.1 Hypo-osmolality and hyponatremia; K70.30 Alcoholic cirrhosis of liver without ascites; D64.9 Anemia, unspecified; Y90.1 Blood alcohol level of 20-39 mg/100 ml; E87.6 Hypokalemia; E83.39 Other disorders of phosphorus metabolism; E83.42 Hypomagnesemia; G47.33 Obstructive sleep apnea (adult) (pediatric); E66.9 Obesity, unspecified; F17.210 Nicotine dependence, cigarettes, uncomplicated; K75.9 Inflammatory liver disease, unspecified; W18.30XA Fall on same level, unspecified, initial encounter; Y93.89 Activity, other specified; Y92.89 Other specified places as the place of occurrence of the external cause; Y99.8 Other external cause status; Z72.820 Sleep deprivation; Z91.14 Patient's other noncompliance with medication regimen; Z91.19 Patient's noncompliance with other medical treatment and regimen; Z03.818 Encounter for observation for suspected exposure to other biological agents ruled out
CPT/HCPCS: 36415; 36600; 70450; 71045; 80048; 80053; 80305; 81001; 82140; 82435; 82550; 82746; 82803; 82947; 82948; 83605; 83735; 83874; 84100; 84132; 84145; 84295; 84443; 84484; 85018; 85025; 85610; 85730; 87040; 87088; 87635; 87804; 87880; 93005; 94660; A4344; G0378; G0480; J0360; J0696; J1815; J1953; J1956; J2060; J2560; J3370; J3411; J3475; J3480; J3490; J7030; J7120; Q2009

== ENCOUNTER → 2020-05-30 | Outpatient (CLI) | payer OTHER | END | disposition home or self-care (01) | LOC: OIH 09:45 | PROVIDERS: ATTEND Family Medicine | DX: M19.072 Primary osteoarthritis, left ankle and foot (principal); M47.816 Spondylosis without myelopathy or radiculopathy, lumbar region; M43.8X6 Other specified deforming dorsopathies, lumbar region; M19.041 Primary osteoarthritis, right hand; G40.919 Epilepsy, unspecified, intractable, without status epilepticus; K74.60 Unspecified cirrhosis of liver | CPT/HCPCS: 72100; 73120; 73600 ==

== ENCOUNTER 2020-06-27 13:31 | Emergency (ER) | payer OTHER ==
[2020-06-27] MEDS ORDERED: SODIUM CHLORIDE 0.9% 1000ML 1,000 ML IV ONE (13:32)
[2020-06-27 13:57] LABS: BASOPHILS % (AUTO) 2.2 % (0.0-5.0); EOSINOPHILS % (AUTO) 0.5 % (0.0-8.0); HEMATOCRIT 26.3 % (42-54); LYMPHOCYTES % (AUTO) 26.9 % (21.0-51.0); MEAN CORPUSCULAR HEMOGLOBIN 25.6 pg (27.0-33.0); MEAN CORPUSCULAR HGB CONC 32.7 g/dL (32.0-36.0); MEAN CORPUSCULAR VOLUME 78.3 fL (79-99); MONOCYTES % (AUTO) 20.9 % (3.0-13.0); NEUTROPHILS % (AUTO) 49.5 % (40.0-77.0); PLATELET COUNT (AUTO) 34 K/uL (130-400); RED BLOOD CELL COUNT(AUTO) 3.36 MIL/uL (4.50-6.20); RED CELL DISTRIBUTION WIDTH 21.3 % (11.0-15.5)
[2020-06-27 14:05] LABS: CREATININE 0.9 mg/dL (0.5-1.5); POTASSIUM 3.4 mmol/L (3.5-5.1)
[2020-06-27 14:09] LABS: ALBUMIN 2.3 g/dL (3.5-5.0); BILIRUBIN,TOTAL 3.5 mg/dL (0.2-1.0); TOTAL PROTEIN, SERUM 8.1 g/dL (6.0-8.3)
[2020-06-27] MEDS ORDERED: LORAZEPAM 2 MG/ML 1 ML VIAL ONE (14:09)
[2020-06-27 14:29] LABS: PLATELET MORPHOLOGY COMMENT MARKED DECREASE
[2020-06-27] MEDS ORDERED: POTASSIUM CHLORIDE 20 MEQ ERTAB PO ONE (14:44)
[2020-06-27] MEDS ORDERED: DIAZEPAM 5 MG TABLET ONE (17:12)
== END 2020-06-27 17:38 | disposition home or self-care (01) ==
LOC: EDH 13:31
DX: G40.89 Other seizures (principal); S62.352A Nondisplaced fracture of shaft of third metacarpal bone, right hand, initial encounter for closed fracture; F10.10 Alcohol abuse, uncomplicated; F41.9 Anxiety disorder, unspecified; Z71.51 Drug abuse counseling and surveillance of drug abuser; Z79.899 Other long term (current) drug therapy; Z87.891 Personal history of nicotine dependence; X58.XXXA Exposure to other specified factors, initial encounter; Y93.89 Activity, other specified; Y92.89 Other specified places as the place of occurrence of the external cause; Y99.8 Other external cause status
CPT/HCPCS: 29125; 36415; 73130; 80053; 80177; 82140; 82150; 83690; 85025; 93005; 96361; 96374; 99285; J2060; J7030

== ENCOUNTER 2020-12-30 23:11 | Inpatient (IN) | payer OTHER ==
[~2020-12-30] VITALS: Ht 175.3 cm; Wt 79.4 kg
[2020-12-31 00:01] LABS: BASOPHILS % (AUTO) 3.8 % (0.0-5.0); EOSINOPHILS % (AUTO) 3.8 % (0.0-8.0); HEMATOCRIT 23.7 % (42-54); MEAN CORPUSCULAR HEMOGLOBIN 23.2 pg (27.0-33.0); MEAN CORPUSCULAR HGB CONC 30.8 g/dL (32.0-36.0); MEAN CORPUSCULAR VOLUME 75.5 fL (79-99); MONOCYTES % (AUTO) 12.9 % (3.0-13.0); NEUTROPHILS % (AUTO) 38.2 % (40.0-77.0); PLATELET COUNT (AUTO) 50 K/uL (130-400); RED BLOOD CELL COUNT(AUTO) 3.14 MIL/uL (4.50-6.20); RED CELL DISTRIBUTION WIDTH 24.1 % (11.0-15.5); WHITE BLOOD COUNT (AUTO) 3.7 K/uL (4.8-10.8)
[2020-12-31 00:11] LABS: CREATININE 1.1 mg/dL (0.5-1.5); POTASSIUM 3.7 mmol/L (3.5-5.1)
[2020-12-31 00:13] LABS: APPEARANCE,URINE Clear (CLEAR); BILIRUBIN,URINE Negative (NEGATIVE); COLOR,URINE Yellow (YELLOW); GLUCOSE, URINE (UA) Negative (NEGATIVE); KETONES,URINE Negative (NEGATIVE); LEUKOCYTE ESTERASE ,URINE Negative (NEGATIVE); NITRATE,URINE Negative (NEGATIVE); OCCULT BLOOD,URINE Negative (NEGATIVE); PH,URINE 6.5 (5.0-8.0); PROTEIN,URINE Negative (NEGATIVE)
[2020-12-31 00:15] LABS: INR 1.46 (0.85-1.15); PROTHROMBIN TIME 15.4 SEC (9.6-11.6)
[2020-12-31 00:17] LABS: ALBUMIN 2.4 g/dL (3.5-5.0); BILIRUBIN,TOTAL 3.9 mg/dL (0.2-1.0); TOTAL PROTEIN, SERUM 8.4 g/dL (6.0-8.3)
[2020-12-31 00:17] LABS: AMPHET/METH SCREEN,URINE NEGATIVE (NEGATIVE); BARBITURATE SCREEN, URINE NEGATIVE (NEGATIVE); BENZODIAZEPINES SCREEN,URINE NEGATIVE (NEGATIVE); CANNABINOID SCREEN,URINE NEGATIVE (NEGATIVE); COCAINE SCREEN,URINE NEGATIVE (NEGATIVE); OPIATE SCREEN,URINE NEGATIVE (NEGATIVE); PHENCYCLIDINE SCREEN,URINE NEGATIVE (NEGATIVE)
[2020-12-31 00:47] LABS: ALCOHOL, BLOOD 386 mg/dL (0-10); CREATINE KINASE, TOTAL 1335 U/L (21-232)
[2020-12-31] MEDS ORDERED: ACETAMINOPHEN 325 MG TAB PO PRN (02:15)
[2020-12-31] MEDS ORDERED: ONDANSETRON HCL 4 MG/2 ML VIAL IV PRN (02:15)
[2020-12-31] MEDS: SODIUM CHLORIDE 0.9% 1000ML 1,000 ML IV SCH ×4 (02:30→22:37)
[2020-12-31] MEDS ORDERED: LORAZEPAM 2 MG TABLET PO PRN (02:30)
[2020-12-31] MEDS ORDERED: PHARMACY COMMUNICATION MISC PRN (02:30)
[2020-12-31] MEDS: LACTULOSE 20 GM/30 ML UDCUP PO SCH ×3 (02:30→18:30)
[2020-12-31] MEDS ORDERED: SODIUM CHLORIDE 0.9% 1000ML 1,000 ML IV ONE (03:35)
[2020-12-31] MEDS ORDERED: LACTULOSE 20 GM/30 ML UDCUP ONE ×3 (03:35→21:40)
[2020-12-31 07:27] LABS: EOSINOPHILS % (AUTO) 4.5 % (0.0-8.0); HEMATOCRIT 23.4 % (42-54); LYMPHOCYTES % (AUTO) 30.1 % (21.0-51.0); MEAN CORPUSCULAR HEMOGLOBIN 23.5 pg (27.0-33.0); MEAN CORPUSCULAR HGB CONC 30.3 g/dL (32.0-36.0); MEAN CORPUSCULAR VOLUME 77.5 fL (79-99); MONOCYTES % (AUTO) 15.7 % (3.0-13.0); NEUTROPHILS % (AUTO) 47.5 % (40.0-77.0); PLATELET COUNT (AUTO) 45 K/uL (130-400); RED BLOOD CELL COUNT(AUTO) 3.02 MIL/uL (4.50-6.20); RED CELL DISTRIBUTION WIDTH 24.4 % (11.0-15.5)
[2020-12-31 07:40] LABS: INR 1.56 (0.85-1.15); PROTHROMBIN TIME 16.3 SEC (9.6-11.6)
[2020-12-31 07:41] LABS: PARTIAL THROMBOPLASTIN TIME 33.6 SEC (26.3-35.5)
[2020-12-31] MEDS ORDERED: THIAMINE HCL 100 MG TABLET ONE (08:18)
[2020-12-31] MEDS ORDERED: FAMOTIDINE/PF 20 MG/2 ML VIAL IV ONE (08:19)
[2020-12-31] MEDS ORDERED: FOLIC ACID 1 MG TABLET ONE (08:19)
[2020-12-31] MEDS ORDERED: MULTIVITAMIN TABLET ONE (08:19)
[2020-12-31 09:00] LABS: CREATININE 0.8 mg/dL (0.5-1.5); POTASSIUM 3.2 mmol/L (3.5-5.1)
[2020-12-31] MEDS: MULTIVITAMIN TABLET PO SCH (09:00)
[2020-12-31] MEDS: FAMOTIDINE/PF 20 MG/2 ML VIAL IV SCH ×2 (09:00→22:23)
[2020-12-31] MEDS: FOLIC ACID 1 MG TABLET PO SCH (09:00)
[2020-12-31] MEDS: THIAMINE HCL 100 MG TABLET PO SCH (09:00)
[2020-12-31 09:01] LABS: BILIRUBIN,TOTAL 2.9 mg/dL (0.2-1.0); MAGNESIUM 1.8 mg/dL (1.80-2.40); TOTAL PROTEIN, SERUM 7.2 g/dL (6.0-8.3)
[2020-12-31] MEDS ORDERED: LIDOCAINE HCL-MPF 1% 2ML VIAL IV PRN (10:15)
[2020-12-31] MEDS ORDERED: POTASSIUM CHLORIDE 10MEQ/100ML 100 ML IV PRN (10:15)
[2020-12-31] MEDS ORDERED: POTASSIUM CHLORIDE 20 MEQ ERTAB PO PRN (10:15)
[2020-12-31] MEDS ORDERED: POTASSIUM CHLORIDE 10% ELIXIR 20 MEQ/15 ML UDCUP ONE (10:46)
[2020-12-31 11:44] LABS: HEMATOCRIT 25.1 % (42-54)
[2020-12-31] MEDS ORDERED: POTASSIUM CHLORIDE 20 MEQ ERTAB PO ONE (15:35)
[2020-12-31 22:10] VITALS: BP 144/84
[2020-12-31] MEDS: CHLORDIAZEPOXIDE HCL 25 MG CAP PO PRN (23:00)
[2020-12-31] MEDS ORDERED: LEVE-43 PO (23:37)
[2021-01-01] MEDS: LACTULOSE 20 GM/30 ML UDCUP PO SCH ×3 (02:44→20:44)
[2021-01-01 03:19] VITALS: BP 125/75
[2021-01-01] MEDS: CHLORDIAZEPOXIDE HCL 25 MG CAP PO PRN ×3 (06:11→16:10)
[2021-01-01 06:24] LABS: CREATININE 0.8 mg/dL (0.5-1.5); POTASSIUM 3.7 mmol/L (3.5-5.1)
[2021-01-01 07:32] VITALS: BP 131/69
[2021-01-01] MEDS: FOLIC ACID 1 MG TABLET PO SCH (07:45)
[2021-01-01] MEDS: FAMOTIDINE/PF 20 MG/2 ML VIAL IV SCH ×2 (07:45→20:42)
[2021-01-01] MEDS: THIAMINE HCL 100 MG TABLET PO SCH (07:45)
[2021-01-01] MEDS: MULTIVITAMIN TABLET PO SCH (07:45)
[2021-01-01] MEDS: LEVETIRACETAM 500 MG TABLET PO SCH ×2 (08:03→20:42)
[2021-01-01 10:49] VITALS: BP 128/71
[2021-01-01] MEDS ORDERED: IOHEXOL-350 50ML VIAL IV ONE (10:55)
[2021-01-01] MEDS: SODIUM CHLORIDE 0.9% 1000ML 1,000 ML IV SCH ×3 (13:36→22:04)
[2021-01-01 16:11] VITALS: BP 137/76
[2021-01-01 20:01] VITALS: BP 133/75
[2021-01-01 23:40] VITALS: BP 136/67
[2021-01-02 04:09] VITALS: BP 114/71
[2021-01-02] MEDS: SODIUM CHLORIDE 0.9% 1000ML 1,000 ML IV SCH ×2 (04:14→18:12)
[2021-01-02] MEDS: CHLORDIAZEPOXIDE HCL 25 MG CAP PO PRN ×4 (06:22→23:07)
[2021-01-02] MEDS: LORAZEPAM 2 MG/ML 1 ML VIAL IVP PRN ×3 (07:42→20:40)
[2021-01-02] MEDS: FOLIC ACID 1 MG TABLET PO SCH (07:42)
[2021-01-02] MEDS: FAMOTIDINE/PF 20 MG/2 ML VIAL IV SCH ×2 (07:42→20:36)
[2021-01-02] MEDS: THIAMINE HCL 100 MG TABLET PO SCH (07:42)
[2021-01-02] MEDS: MULTIVITAMIN TABLET PO SCH (07:42)
[2021-01-02] MEDS: LEVETIRACETAM 500 MG TABLET PO SCH ×2 (07:42→20:36)
[2021-01-02] MEDS: LACTULOSE 20 GM/30 ML UDCUP PO SCH ×4 (07:42→20:36)
[2021-01-02 08:08] VITALS: BP 141/81
[2021-01-02] MEDS ORDERED: METOPROLOL TARTRATE 1 MG/ML 5ML VIAL IV ONE (08:13)
[2021-01-02 09:08] LABS: HEMATOCRIT 26.2 % (42-54); MEAN CORPUSCULAR HGB CONC 29.4 g/dL (32.0-36.0); MEAN CORPUSCULAR VOLUME 78.2 fL (79-99); PLATELET COUNT (AUTO) 46 K/uL (130-400); RED BLOOD CELL COUNT(AUTO) 3.35 MIL/uL (4.50-6.20); RED CELL DISTRIBUTION WIDTH 23.9 % (11.0-15.5); WHITE BLOOD COUNT (AUTO) 4.5 K/uL (4.8-10.8)
[2021-01-02 09:20] LABS: ALBUMIN 2.3 g/dL (3.5-5.0); BILIRUBIN,TOTAL 4.8 mg/dL (0.2-1.0); CREATININE 1.1 mg/dL (0.5-1.5); MAGNESIUM 1.3 mg/dL (1.80-2.40); POTASSIUM 3.5 mmol/L (3.5-5.1); TOTAL PROTEIN, SERUM 7.7 g/dL (6.0-8.3)
[2021-01-02 11:07] VITALS: BP 122/77
[2021-01-02] MEDS ORDERED: MAGNESIUM 2GM PREMIX 50ML 50 ML IV ONE (12:18)
[2021-01-02] MEDS ORDERED: METOPROLOL TARTRATE 1 MG/ML 5ML VIAL IV SCH (13:15)
[2021-01-02 16:25] VITALS: BP 130/86
[2021-01-02 20:25] VITALS: BP 152/72
[2021-01-02 23:31] VITALS: BP 127/71
[2021-01-03] MEDS: LORAZEPAM 2 MG/ML 1 ML VIAL IVP PRN ×2 (00:57→05:27)
[2021-01-03] MEDS: SODIUM CHLORIDE 0.9% 1000ML 1,000 ML IV SCH ×2 (02:30→10:30)
[2021-01-03] MEDS: CHLORDIAZEPOXIDE HCL 25 MG CAP PO PRN ×2 (03:17→20:40)
[2021-01-03 04:05] VITALS: BP 149/68
[2021-01-03 04:31] LABS: BASOPHILS % (AUTO) 1.2 % (0.0-5.0); EOSINOPHILS % (AUTO) 3.7 % (0.0-8.0); LYMPHOCYTES % (AUTO) 25.2 % (21.0-51.0); MEAN CORPUSCULAR HEMOGLOBIN 23.5 pg (27.0-33.0); MEAN CORPUSCULAR HGB CONC 30.4 g/dL (32.0-36.0); MEAN CORPUSCULAR VOLUME 77.4 fL (79-99); MONOCYTES % (AUTO) 19.6 % (3.0-13.0); PLATELET COUNT (AUTO) 47 K/uL (130-400); RED CELL DISTRIBUTION WIDTH 23.1 % (11.0-15.5); WHITE BLOOD COUNT (AUTO) 5.9 K/uL (4.8-10.8)
[2021-01-03 04:38] LABS: CREATININE 0.8 mg/dL (0.5-1.5); MAGNESIUM 1.5 mg/dL (1.80-2.40); POTASSIUM 3.6 mmol/L (3.5-5.1)
[2021-01-03] MEDS: MAGNESIUM 2GM PREMIX 50ML 50 ML IV PRN (05:05)
[2021-01-03] MEDS: POTASSIUM CHLORIDE 10% ELIXIR 20 MEQ/15 ML UDCUP PO PRN (05:05)
[2021-01-03 08:21] VITALS: BP 138/80
[2021-01-03] MEDS ORDERED: PANTOPRAZOLE 40 MG/VIAL IVP SCH (09:00)
[2021-01-03] MEDS: LACTULOSE 20 GM/30 ML UDCUP PO SCH ×4 (09:15→20:40)
[2021-01-03] MEDS: FAMOTIDINE/PF 20 MG/2 ML VIAL IV SCH ×2 (09:15→20:40)
[2021-01-03] MEDS: LEVETIRACETAM 500 MG TABLET PO SCH ×2 (09:16→20:40)
[2021-01-03] MEDS: FOLIC ACID 1 MG TABLET PO SCH (09:16)
[2021-01-03] MEDS: MULTIVITAMIN TABLET PO SCH (09:16)
[2021-01-03] MEDS: THIAMINE HCL 100 MG TABLET PO SCH (09:16)
[2021-01-03 16:00] VITALS: BP 132/100
[2021-01-03] MEDS ORDERED: PHYTONADIONE 10 MG/1 ML AMP SQ SCH (16:00)
[2021-01-03 16:31] LABS: % IRON SATURATION 4.5 % (30-44)
[2021-01-03 19:45] VITALS: BP 127/81
[2021-01-03 23:12] VITALS: BP 126/91
[2021-01-04 03:17] VITALS: BP 127/80
[2021-01-04] MEDS: CHLORDIAZEPOXIDE HCL 25 MG CAP PO PRN (03:25)
[2021-01-04 04:42] LABS: BASOPHILS % (AUTO) 1.3 % (0.0-5.0); EOSINOPHILS % (AUTO) 5.4 % (0.0-8.0); HEMATOCRIT 25.1 % (42-54); LYMPHOCYTES % (AUTO) 23.5 % (21.0-51.0); MEAN CORPUSCULAR HEMOGLOBIN 22.8 pg (27.0-33.0); MEAN CORPUSCULAR HGB CONC 29.5 g/dL (32.0-36.0); MEAN CORPUSCULAR VOLUME 77.5 fL (79-99); MONOCYTES % (AUTO) 17.7 % (3.0-13.0); NEUTROPHILS % (AUTO) 51.9 % (40.0-77.0); PLATELET COUNT (AUTO) 49 K/uL (130-400); RED BLOOD CELL COUNT(AUTO) 3.24 MIL/uL (4.50-6.20); WHITE BLOOD COUNT (AUTO) 4.5 K/uL (4.8-10.8)
[2021-01-04 04:55] LABS: ALBUMIN 2.2 g/dL (3.5-5.0); BILIRUBIN,TOTAL 3.6 mg/dL (0.2-1.0); MAGNESIUM 1.4 mg/dL (1.80-2.40); PHOSPHORUS 3.3 mg/dL (2.5-4.9); POTASSIUM 3.4 mmol/L (3.5-5.1); TOTAL PROTEIN, SERUM 7.6 g/dL (6.0-8.3)
[2021-01-04] MEDS: MAGNESIUM 2GM PREMIX 50ML 50 ML IV PRN (05:08)
[2021-01-04] MEDS: POTASSIUM CHLORIDE 10% ELIXIR 20 MEQ/15 ML UDCUP PO PRN ×2 (07:00→10:00)
[2021-01-04] MEDS: FAMOTIDINE/PF 20 MG/2 ML VIAL IV SCH ×2 (10:00→21:34)
[2021-01-04] MEDS: LACTULOSE 20 GM/30 ML UDCUP PO SCH ×3 (10:00→21:35)
[2021-01-04] MEDS: LEVETIRACETAM 500 MG TABLET PO SCH ×2 (10:01→21:34)
[2021-01-04] MEDS: MULTIVITAMIN TABLET PO SCH (10:01)
[2021-01-04] MEDS: THIAMINE HCL 100 MG TABLET PO SCH (10:01)
[2021-01-04] MEDS: FOLIC ACID 1 MG TABLET PO SCH (10:01)
[2021-01-04] MEDS ORDERED: IRON SUCROSE COMPLEX 500 MG in SODIUM CHLORIDE 0.9% 50 ML IV SCH (12:15)
[2021-01-04] MEDS ORDERED: EPOETIN ALFA-EPBX (NON-ESRD) 10,000 UNIT/ML VIAL SQ SCH (12:15)
[2021-01-04] MEDS ORDERED: COMPOUND IV MISC 1 EACH IVSOLN MISC PRN (12:30)
[2021-01-04] MEDS: POTASSIUM CHLORIDE 20 MEQ ERTAB PO SCH (13:28)
[2021-01-04] MEDS ORDERED: THIA100T91 PO (13:52)
[2021-01-04 20:18] VITALS: BP 126/77
[2021-01-04] MEDS ORDERED: CHLORDIAZEPOXIDE HCL 25 MG CAP ONE (21:32)
[2021-01-04 23:38] VITALS: BP 134/59
[2021-01-05] MEDS ORDERED: CHLORDIAZEPOXIDE HCL 25 MG CAP PO PRN
[2021-01-05] MEDS ORDERED: LORAZEPAM 2 MG/ML 1 ML VIAL IVP PRN
[2021-01-05 04:02] VITALS: BP 129/71
[2021-01-05 05:03] LABS: BASOPHILS % (AUTO) 1.7 % (0.0-5.0); EOSINOPHILS % (AUTO) 5.2 % (0.0-8.0); HEMATOCRIT 24.2 % (42-54); LYMPHOCYTES % (AUTO) 17.4 % (21.0-51.0); MEAN CORPUSCULAR HEMOGLOBIN 23.6 pg (27.0-33.0); MEAN CORPUSCULAR HGB CONC 30.6 g/dL (32.0-36.0); MEAN CORPUSCULAR VOLUME 77.1 fL (79-99); MONOCYTES % (AUTO) 24.7 % (3.0-13.0); NEUTROPHILS % (AUTO) 50.8 % (40.0-77.0); PLATELET COUNT (AUTO) 73 K/uL (130-400); RED BLOOD CELL COUNT(AUTO) 3.14 MIL/uL (4.50-6.20); WHITE BLOOD COUNT (AUTO) 5.4 K/uL (4.8-10.8)
[2021-01-05 05:27] LABS: ALBUMIN 2.2 g/dL (3.5-5.0); BILIRUBIN,TOTAL 3.5 mg/dL (0.2-1.0); CREATININE 0.8 mg/dL (0.5-1.5); POTASSIUM 4.1 mmol/L (3.5-5.1); TOTAL PROTEIN, SERUM 7.4 g/dL (6.0-8.3)
[2021-01-05 08:00] VITALS: BP 108/72
[2021-01-05] MEDS: THIAMINE HCL 100 MG TABLET PO SCH (09:52)
[2021-01-05] MEDS: MULTIVITAMIN TABLET PO SCH (09:52)
[2021-01-05] MEDS: FOLIC ACID 1 MG TABLET PO SCH (09:52)
[2021-01-05] MEDS: FAMOTIDINE/PF 20 MG/2 ML VIAL IV SCH ×2 (09:52→20:11)
[2021-01-05] MEDS: LEVETIRACETAM 500 MG TABLET PO SCH ×2 (09:52→20:11)
[2021-01-05] MEDS: LACTULOSE 20 GM/30 ML UDCUP PO SCH ×3 (09:52→20:11)
[2021-01-05 11:18] VITALS: BP 159/60
[2021-01-05] MEDS: POTASSIUM CHLORIDE 20 MEQ ERTAB PO SCH (12:23)
[2021-01-05 16:00] VITALS: BP 121/78
[2021-01-05 19:00] VITALS: BP 101/52
[2021-01-05] MEDS ORDERED: MAG HYDROX/AL HYDROX/SIMETH ES 30 ML SUSP UDCUP PO SCH (20:30)
[2021-01-05 23:21] VITALS: BP 113/62
[2021-01-06 04:18] VITALS: BP 150/71
[2021-01-06 07:53] LABS: BASOPHILS % (AUTO) 1.3 % (0.0-5.0); HEMATOCRIT 24.9 % (42-54); LYMPHOCYTES % (AUTO) 23.9 % (21.0-51.0); MEAN CORPUSCULAR HEMOGLOBIN 22.6 pg (27.0-33.0); MEAN CORPUSCULAR HGB CONC 29.7 g/dL (32.0-36.0); MEAN CORPUSCULAR VOLUME 76.1 fL (79-99); MONOCYTES % (AUTO) 25.2 % (3.0-13.0); NEUTROPHILS % (AUTO) 45.1 % (40.0-77.0); NUCLEATED RED BLOOD CELLS 0.8 % (0.0-0.19); PLATELET COUNT (AUTO) 84 K/uL (130-400); RED BLOOD CELL COUNT(AUTO) 3.27 MIL/uL (4.50-6.20); RED CELL DISTRIBUTION WIDTH 22.7 % (11.0-15.5); WHITE BLOOD COUNT (AUTO) 6.2 K/uL (4.8-10.8)
[2021-01-06] MEDS: FAMOTIDINE/PF 20 MG/2 ML VIAL IV SCH ×2 (07:55→20:20)
[2021-01-06] MEDS: THIAMINE HCL 100 MG TABLET PO SCH (07:55)
[2021-01-06] MEDS: FOLIC ACID 1 MG TABLET PO SCH (07:55)
[2021-01-06] MEDS: LACTULOSE 20 GM/30 ML UDCUP PO SCH ×3 (07:55→20:20)
[2021-01-06] MEDS: LEVETIRACETAM 500 MG TABLET PO SCH ×2 (07:55→20:20)
[2021-01-06] MEDS: MULTIVITAMIN TABLET PO SCH (07:55)
[2021-01-06 08:00] VITALS: BP 119/68
[2021-01-06 08:07] LABS: ALBUMIN 2.1 g/dL (3.5-5.0); BILIRUBIN,TOTAL 3.6 mg/dL (0.2-1.0); CREATININE 0.8 mg/dL (0.5-1.5); TOTAL PROTEIN, SERUM 7.3 g/dL (6.0-8.3)
[2021-01-06] MEDS ORDERED: EPOETIN ALFA-EPBX (NON-ESRD) 10,000 UNIT/ML VIAL SQ SCH (11:30)
[2021-01-06 11:50] VITALS: BP 114/71
[2021-01-06 16:00] VITALS: BP 116/70
[2021-01-06] MEDS: POTASSIUM CHLORIDE 20 MEQ ERTAB PO SCH (17:53)
[2021-01-06 19:30] VITALS: BP 118/72
[2021-01-06 23:13] VITALS: BP 108/61
[2021-01-07 03:53] LABS: HEMATOCRIT 24.4 % (42-54); MEAN CORPUSCULAR HEMOGLOBIN 22.7 pg (27.0-33.0); MEAN CORPUSCULAR HGB CONC 29.9 g/dL (32.0-36.0); NUCLEATED RED BLOOD CELLS 0.3 % (0.0-0.19); RED BLOOD CELL COUNT(AUTO) 3.21 MIL/uL (4.50-6.20); RED CELL DISTRIBUTION WIDTH 23.4 % (11.0-15.5); WHITE BLOOD COUNT (AUTO) 7.1 K/uL (4.8-10.8)
[2021-01-07 04:07] LABS: INR 1.84 (0.85-1.15)
[2021-01-07 04:08] LABS: ALBUMIN 2.1 g/dL (3.5-5.0); BILIRUBIN,TOTAL 3.2 mg/dL (0.2-1.0); CREATININE 0.8 mg/dL (0.5-1.5); MAGNESIUM 1.4 mg/dL (1.80-2.40); PHOSPHORUS 3.8 mg/dL (2.5-4.9); POTASSIUM 4.1 mmol/L (3.5-5.1); TOTAL PROTEIN, SERUM 7.1 g/dL (6.0-8.3)
[2021-01-07 04:09] LABS: PARTIAL THROMBOPLASTIN TIME 36.2 SEC (26.3-35.5)
[2021-01-07] MEDS: MAGNESIUM 2GM PREMIX 50ML 50 ML IV PRN (04:53)
[2021-01-07 05:00] VITALS: BP 112/70
[2021-01-07 08:00] VITALS: BP 134/75
[2021-01-07] MEDS: LACTULOSE 20 GM/30 ML UDCUP PO SCH ×3 (10:08→21:04)
[2021-01-07] MEDS: THIAMINE HCL 100 MG TABLET PO SCH (10:08)
[2021-01-07] MEDS: FAMOTIDINE/PF 20 MG/2 ML VIAL IV SCH ×2 (10:08→21:04)
[2021-01-07] MEDS: MULTIVITAMIN TABLET PO SCH (10:08)
[2021-01-07] MEDS: FOLIC ACID 1 MG TABLET PO SCH (10:08)
[2021-01-07] MEDS: LEVETIRACETAM 500 MG TABLET PO SCH ×2 (10:08→21:04)
[2021-01-07 12:00] VITALS: BP 103/60
[2021-01-07] MEDS: POTASSIUM CHLORIDE 20 MEQ ERTAB PO SCH (12:15)
[2021-01-07] MEDS: PHYTONADIONE 10 MG/1 ML AMP SQ SCH (12:21)
[2021-01-07] MEDS ORDERED: METHYLPHENIDATE HCL 5 MG TABLET PO SCH (14:00)
[2021-01-07 16:00] VITALS: BP 115/68
[2021-01-07 20:00] VITALS: BP 116/71
[2021-01-07 23:31] VITALS: BP 119/78
[2021-01-08 04:00] VITALS: BP 138/71
[2021-01-08] MEDS ORDERED: LORAZEPAM 2 MG/ML 1 ML VIAL IVP SCH (04:45)
[2021-01-08] MEDS ORDERED: LORAZEPAM 2 MG/ML 1 ML VIAL ONE (05:09)
[2021-01-08 05:37] LABS: HEMATOCRIT 25.9 % (42-54); MEAN CORPUSCULAR HEMOGLOBIN 23.3 pg (27.0-33.0); MEAN CORPUSCULAR HGB CONC 30.1 g/dL (32.0-36.0); MEAN CORPUSCULAR VOLUME 77.3 fL (79-99); RED BLOOD CELL COUNT(AUTO) 3.35 MIL/uL (4.50-6.20); RED CELL DISTRIBUTION WIDTH 24.7 % (11.0-15.5); WHITE BLOOD COUNT (AUTO) 5.5 K/uL (4.8-10.8)
[2021-01-08 05:47] LABS: ALBUMIN 2.2 g/dL (3.5-5.0); BILIRUBIN,DIRECT 2.6 mg/dL (0.0-0.3); BILIRUBIN,TOTAL 3.1 mg/dL (0.2-1.0); MAGNESIUM 1.6 mg/dL (1.80-2.40); PHOSPHORUS 3.6 mg/dL (2.5-4.9); TOTAL PROTEIN, SERUM 7.4 g/dL (6.0-8.3)
[2021-01-08 05:52] LABS: INR 1.74 (0.85-1.15)
[2021-01-08 05:53] LABS: PARTIAL THROMBOPLASTIN TIME 35.5 SEC (26.3-35.5)
[2021-01-08] MEDS: MAGNESIUM 2GM PREMIX 50ML 50 ML IV SCH (06:55)
[2021-01-08 08:00] VITALS: BP 120/66
[2021-01-08] MEDS ORDERED: FERROUS SULFATE 325 MG TABLET.DR PO SCH (09:00)
[2021-01-08 12:00] VITALS: BP 122/68
[2021-01-08] MEDS: POTASSIUM CHLORIDE 20 MEQ ERTAB PO SCH (12:15)
[2021-01-08] MEDS: MAGNESIUM OXIDE 400 MG TABLET PO SCH (12:49)
[2021-01-08] MEDS: ASCORBIC ACID 500 MG TAB PO SCH (12:49)
[2021-01-08] MEDS: LEVETIRACETAM 500 MG TABLET PO SCH ×2 (12:49→20:15)
[2021-01-08] MEDS: FOLIC ACID 1 MG TABLET PO SCH (12:49)
[2021-01-08] MEDS: MULTIVITAMIN TABLET PO SCH (13:04)
[2021-01-08] MEDS: THIAMINE HCL 100 MG TABLET PO SCH (13:04)
[2021-01-08] MEDS: FAMOTIDINE/PF 20 MG/2 ML VIAL IV SCH ×2 (13:05→20:15)
[2021-01-08] MEDS: PHYTONADIONE 10 MG/1 ML AMP SQ SCH (13:05)
[2021-01-08] MEDS: IRON SUCROSE COMPLEX 300 MG in SODIUM CHLORIDE 0.9% 50 ML IV SCH (13:11)
[2021-01-08] MEDS: LACTULOSE 20 GM/30 ML UDCUP PO SCH ×2 (16:12→20:16)
[2021-01-08 20:00] VITALS: BP 123/76
[2021-01-08] MEDS: RIFAXIMIN 550 MG TABLET PO SCH (20:15)
[2021-01-09] VITALS: BP 130/72
[2021-01-09 04:00] VITALS: BP 108/65
[2021-01-09 05:11] LABS: BASOPHILS % (AUTO) 2.4 % (0.0-5.0); HEMATOCRIT 26.7 % (42-54); LYMPHOCYTES % (AUTO) 21.6 % (21.0-51.0); MEAN CORPUSCULAR HEMOGLOBIN 23.2 pg (27.0-33.0); MEAN CORPUSCULAR VOLUME 77.4 fL (79-99); NEUTROPHILS % (AUTO) 43.4 % (40.0-77.0); PLATELET COUNT (AUTO) 105 K/uL (130-400); RED BLOOD CELL COUNT(AUTO) 3.45 MIL/uL (4.50-6.20); RED CELL DISTRIBUTION WIDTH 24.9 % (11.0-15.5)
[2021-01-09 05:19] LABS: ALBUMIN 2.1 g/dL (3.5-5.0); BILIRUBIN,TOTAL 3.2 mg/dL (0.2-1.0); CREATININE 0.8 mg/dL (0.5-1.5); MAGNESIUM 1.7 mg/dL (1.80-2.40); POTASSIUM 3.9 mmol/L (3.5-5.1); TOTAL PROTEIN, SERUM 7.3 g/dL (6.0-8.3)
[2021-01-09 08:00] VITALS: BP 118/64
[2021-01-09] MEDS: IRON SUCROSE COMPLEX 300 MG in SODIUM CHLORIDE 0.9% 50 ML IV SCH (09:00)
[2021-01-09] MEDS: FAMOTIDINE/PF 20 MG/2 ML VIAL IV SCH ×2 (09:22→20:09)
[2021-01-09] MEDS: MAGNESIUM OXIDE 400 MG TABLET PO SCH (09:22)
[2021-01-09] MEDS: RIFAXIMIN 550 MG TABLET PO SCH ×2 (09:22→20:09)
[2021-01-09] MEDS: LACTULOSE 20 GM/30 ML UDCUP PO SCH ×3 (09:23→20:09)
[2021-01-09] MEDS: MULTIVITAMIN TABLET PO SCH (09:23)
[2021-01-09] MEDS: ASCORBIC ACID 500 MG TAB PO SCH (09:23)
[2021-01-09] MEDS: FOLIC ACID 1 MG TABLET PO SCH (09:23)
[2021-01-09] MEDS: THIAMINE HCL 100 MG TABLET PO SCH (09:23)
[2021-01-09] MEDS: LEVETIRACETAM 500 MG TABLET PO SCH ×2 (09:23→20:09)
[2021-01-09] MEDS: PHYTONADIONE 10 MG/1 ML AMP SQ SCH (09:24)
[2021-01-09 12:00] VITALS: BP 115/72
[2021-01-09] MEDS: POTASSIUM CHLORIDE 20 MEQ ERTAB PO SCH (12:15)
[2021-01-09 15:58] VITALS: BP 90/49
[2021-01-09] MEDS: IRON SUCROSE COMPLEX 300 MG in SODIUM CHLORIDE 0.9% 250 ML IVP SCH (18:06)
[2021-01-09 20:00] VITALS: BP 105/59
[2021-01-09] MEDS ORDERED: CHLORDIAZEPOXIDE HCL 25 MG CAP PO ONE (21:00)
[2021-01-09] MEDS ORDERED: CHLORDIAZEPOXIDE HCL 25 MG CAP ONE (23:58)
[2021-01-10] VITALS (7 sets, daily range): BP systolic 98–124; BP diastolic 52–68
[2021-01-10 05:43] LABS: BASOPHILS % (AUTO) 1.8 % (0.0-5.0); EOSINOPHILS % (AUTO) 3.6 % (0.0-8.0); LYMPHOCYTES % (AUTO) 23.1 % (21.0-51.0); MEAN CORPUSCULAR HEMOGLOBIN 24.1 pg (27.0-33.0); MEAN CORPUSCULAR HGB CONC 31.2 g/dL (32.0-36.0); MEAN CORPUSCULAR VOLUME 77.2 fL (79-99); MONOCYTES % (AUTO) 23.1 % (3.0-13.0); NEUTROPHILS % (AUTO) 48.1 % (40.0-77.0); PLATELET COUNT (AUTO) 114 K/uL (130-400); RED BLOOD CELL COUNT(AUTO) 3.24 MIL/uL (4.50-6.20); RED CELL DISTRIBUTION WIDTH 24.8 % (11.0-15.5); WHITE BLOOD COUNT (AUTO) 6.2 K/uL (4.8-10.8)
[2021-01-10 06:19] LABS: BILIRUBIN,TOTAL 3.1 mg/dL (0.2-1.0); CREATININE 0.8 mg/dL (0.5-1.5); POTASSIUM 3.9 mmol/L (3.5-5.1); TOTAL PROTEIN, SERUM 7.1 g/dL (6.0-8.3)
[2021-01-10] MEDS: LACTULOSE 20 GM/30 ML UDCUP PO SCH ×3 (10:13→21:00)
[2021-01-10] MEDS: RIFAXIMIN 550 MG TABLET PO SCH ×2 (10:14→21:01)
[2021-01-10] MEDS: THIAMINE HCL 100 MG TABLET PO SCH (10:14)
[2021-01-10] MEDS: PHYTONADIONE 10 MG/1 ML AMP SQ SCH (10:14)
[2021-01-10] MEDS: MULTIVITAMIN TABLET PO SCH (10:14)
[2021-01-10] MEDS: LEVETIRACETAM 500 MG TABLET PO SCH ×2 (10:14→21:03)
[2021-01-10] MEDS: ASCORBIC ACID 500 MG TAB PO SCH (10:14)
[2021-01-10] MEDS: MAGNESIUM OXIDE 400 MG TABLET PO SCH (10:14)
[2021-01-10] MEDS: FAMOTIDINE/PF 20 MG/2 ML VIAL IV SCH ×2 (10:14→21:00)
[2021-01-10] MEDS: FOLIC ACID 1 MG TABLET PO SCH (10:15)
[2021-01-10] MEDS: CHLORDIAZEPOXIDE HCL 25 MG CAP PO SCH ×3 (10:29→21:01)
[2021-01-10] MEDS: POTASSIUM CHLORIDE 20 MEQ ERTAB PO SCH (12:10)
[2021-01-10 12:24] LABS: MAGNESIUM 1.7 mg/dL (1.80-2.40)
[2021-01-10] MEDS: IRON SUCROSE COMPLEX 300 MG in SODIUM CHLORIDE 0.9% 250 ML IVP SCH (17:20)
[2021-01-10] MEDS: MAGNESIUM 2GM PREMIX 50ML 50 ML IV SCH (22:35)
[2021-01-11] MEDS ORDERED: KETOROLAC TROMETHAMINE 15MG/ML IV PRN (00:45)
[2021-01-11] MEDS ORDERED: KETOROLAC TROMETHAMINE 15MG/ML ONE (00:49)
[2021-01-11 03:43] VITALS: BP 110/71
[2021-01-11 05:22] LABS: BASOPHILS % (AUTO) 2.2 % (0.0-5.0); HEMATOCRIT 25.8 % (42-54); LYMPHOCYTES % (AUTO) 25.5 % (21.0-51.0); MEAN CORPUSCULAR HEMOGLOBIN 24.2 pg (27.0-33.0); MEAN CORPUSCULAR HGB CONC 30.6 g/dL (32.0-36.0); MEAN CORPUSCULAR VOLUME 79.1 fL (79-99); MONOCYTES % (AUTO) 20.1 % (3.0-13.0); NEUTROPHILS % (AUTO) 47.9 % (40.0-77.0); PLATELET COUNT (AUTO) 118 K/uL (130-400); RED BLOOD CELL COUNT(AUTO) 3.26 MIL/uL (4.50-6.20); RED CELL DISTRIBUTION WIDTH 25.1 % (11.0-15.5); WHITE BLOOD COUNT (AUTO) 6.3 K/uL (4.8-10.8)
[2021-01-11 05:47] LABS: ALBUMIN 2.1 g/dL (3.5-5.0); BILIRUBIN,TOTAL 3.1 mg/dL (0.2-1.0); CREATININE 0.9 mg/dL (0.5-1.5); MAGNESIUM 2.1 mg/dL (1.80-2.40); POTASSIUM 4.1 mmol/L (3.5-5.1); TOTAL PROTEIN, SERUM 7.1 g/dL (6.0-8.3)
[2021-01-11 07:10] VITALS: BP 114/61
[2021-01-11] MEDS: MULTIVITAMIN TABLET PO SCH (10:12)
[2021-01-11] MEDS: LEVETIRACETAM 500 MG TABLET PO SCH ×2 (10:12→21:01)
[2021-01-11] MEDS: LACTULOSE 20 GM/30 ML UDCUP PO SCH ×5 (10:12→21:00)
[2021-01-11] MEDS: ASCORBIC ACID 500 MG TAB PO SCH (10:12)
[2021-01-11] MEDS: FOLIC ACID 1 MG TABLET PO SCH (10:13)
[2021-01-11] MEDS: MAGNESIUM OXIDE 400 MG TABLET PO SCH (10:13)
[2021-01-11] MEDS: RIFAXIMIN 550 MG TABLET PO SCH ×2 (10:13→21:01)
[2021-01-11] MEDS: THIAMINE HCL 100 MG TABLET PO SCH (10:13)
[2021-01-11] MEDS: FAMOTIDINE/PF 20 MG/2 ML VIAL IV SCH ×2 (10:13→21:01)
[2021-01-11] MEDS: CHLORDIAZEPOXIDE HCL 25 MG CAP PO SCH ×3 (10:30→21:01)
[2021-01-11 11:43] VITALS: BP 117/72
[2021-01-11] MEDS: POTASSIUM CHLORIDE 20 MEQ ERTAB PO SCH (12:08)
[2021-01-11] MEDS ORDERED: LORAZEPAM 2 MG/ML 1 ML VIAL ONE (12:52)
[2021-01-11] MEDS ORDERED: HALOPERIDOL LACTATE 5 MG/ML VIAL IM PRN (13:00)
[2021-01-11] MEDS ORDERED: LORAZEPAM 2 MG/ML 1 ML VIAL IVP ONE (14:15)
[2021-01-11 16:01] VITALS: BP 99/62
[2021-01-11] MEDS ORDERED: LACT10SO9 PO (16:55)
[2021-01-11 19:57] VITALS: BP 108/58
[2021-01-11] MEDS: RISPERIDONE 1 MG TABLET PO SCH (21:01)
[2021-01-12] VITALS (7 sets, daily range): BP systolic 96–135; BP diastolic 54–76
[2021-01-12 05:14] LABS: BASOPHILS % (AUTO) 2.1 % (0.0-5.0); EOSINOPHILS % (AUTO) 5.1 % (0.0-8.0); HEMATOCRIT 24.8 % (42-54); LYMPHOCYTES % (AUTO) 22.5 % (21.0-51.0); MEAN CORPUSCULAR HGB CONC 30.2 g/dL (32.0-36.0); MEAN CORPUSCULAR VOLUME 79.2 fL (79-99); MONOCYTES % (AUTO) 20.2 % (3.0-13.0); NEUTROPHILS % (AUTO) 49.9 % (40.0-77.0); PLATELET COUNT (AUTO) 111 K/uL (130-400); RED BLOOD CELL COUNT(AUTO) 3.13 MIL/uL (4.50-6.20); RED CELL DISTRIBUTION WIDTH 25.2 % (11.0-15.5); WHITE BLOOD COUNT (AUTO) 5.3 K/uL (4.8-10.8)
[2021-01-12 05:49] LABS: BILIRUBIN,TOTAL 2.6 mg/dL (0.2-1.0); TOTAL PROTEIN, SERUM 6.9 g/dL (6.0-8.3)
[2021-01-12] MEDS: MULTIVITAMIN TABLET PO SCH (08:29)
[2021-01-12] MEDS: FAMOTIDINE/PF 20 MG/2 ML VIAL IV SCH ×2 (08:29→20:17)
[2021-01-12] MEDS: LACTULOSE 20 GM/30 ML UDCUP PO SCH ×4 (08:29→20:16)
[2021-01-12] MEDS: RISPERIDONE 1 MG TABLET PO SCH ×2 (08:29→20:16)
[2021-01-12] MEDS: FOLIC ACID 1 MG TABLET PO SCH (08:29)
[2021-01-12] MEDS: THIAMINE HCL 100 MG TABLET PO SCH (08:30)
[2021-01-12] MEDS: MAGNESIUM OXIDE 400 MG TABLET PO SCH (08:30)
[2021-01-12] MEDS: RIFAXIMIN 550 MG TABLET PO SCH ×2 (08:30→20:16)
[2021-01-12] MEDS: LEVETIRACETAM 500 MG TABLET PO SCH ×2 (08:30→20:17)
[2021-01-12] MEDS: FERROUS SULFATE 325 MG TABLET.DR PO SCH ×3 (08:30→17:51)
[2021-01-12] MEDS: ASCORBIC ACID 500 MG TAB PO SCH (08:30)
[2021-01-12] MEDS: POTASSIUM CHLORIDE 20 MEQ ERTAB PO SCH (12:15)
[2021-01-12] MEDS: CHLORDIAZEPOXIDE HCL 25 MG CAP PO SCH ×3 (13:07→20:19)
[2021-01-13 03:19] VITALS: BP 121/67
[2021-01-13 05:54] LABS: BASOPHILS % (AUTO) 1.9 % (0.0-5.0); EOSINOPHILS % (AUTO) 3.9 % (0.0-8.0); HEMATOCRIT 26.2 % (42-54); LYMPHOCYTES % (AUTO) 15.9 % (21.0-51.0); MEAN CORPUSCULAR HGB CONC 30.2 g/dL (32.0-36.0); MEAN CORPUSCULAR VOLUME 79.6 fL (79-99); MONOCYTES % (AUTO) 16.1 % (3.0-13.0); NEUTROPHILS % (AUTO) 61.8 % (40.0-77.0); PLATELET COUNT (AUTO) 116 K/uL (130-400); RED BLOOD CELL COUNT(AUTO) 3.29 MIL/uL (4.50-6.20); RED CELL DISTRIBUTION WIDTH 25.6 % (11.0-15.5); WHITE BLOOD COUNT (AUTO) 5.4 K/uL (4.8-10.8)
[2021-01-13 06:43] LABS: ALBUMIN 2.1 g/dL (3.5-5.0); BILIRUBIN,TOTAL 2.6 mg/dL (0.2-1.0); CREATININE 0.9 mg/dL (0.5-1.5); POTASSIUM 4.1 mmol/L (3.5-5.1); TOTAL PROTEIN, SERUM 7.1 g/dL (6.0-8.3)
[2021-01-13 08:00] VITALS: BP 120/73
[2021-01-13] MEDS: MAGNESIUM OXIDE 400 MG TABLET PO SCH (09:44)
[2021-01-13] MEDS: RISPERIDONE 1 MG TABLET PO SCH ×2 (09:45→20:14)
[2021-01-13] MEDS: ASCORBIC ACID 500 MG TAB PO SCH (09:45)
[2021-01-13] MEDS: FOLIC ACID 1 MG TABLET PO SCH (09:45)
[2021-01-13] MEDS: LEVETIRACETAM 500 MG TABLET PO SCH ×2 (09:45→20:14)
[2021-01-13] MEDS: RIFAXIMIN 550 MG TABLET PO SCH ×2 (09:45→20:14)
[2021-01-13] MEDS: FAMOTIDINE/PF 20 MG/2 ML VIAL IV SCH ×2 (09:45→20:14)
[2021-01-13] MEDS: MULTIVITAMIN TABLET PO SCH (09:45)
[2021-01-13] MEDS: THIAMINE HCL 100 MG TABLET PO SCH (09:46)
[2021-01-13] MEDS: LACTULOSE 20 GM/30 ML UDCUP PO SCH ×4 (09:50→20:15)
[2021-01-13] MEDS ORDERED: CHLORDIAZEPOXIDE HCL 10 MG CAPSULE ONE (09:56)
[2021-01-13] MEDS: FERROUS SULFATE 325 MG TABLET.DR PO SCH ×3 (09:59→17:00)
[2021-01-13] MEDS: CHLORDIAZEPOXIDE HCL 25 MG CAP PO SCH ×3 (10:24→20:14)
[2021-01-13 12:00] VITALS: BP 96/60
[2021-01-13] MEDS: POTASSIUM CHLORIDE 20 MEQ ERTAB PO SCH (12:00)
[2021-01-13 16:48] VITALS: BP 100/57
[2021-01-13 20:00] VITALS: BP 101/68
[2021-01-13 23:56] VITALS: BP 90/53
[2021-01-14 04:00] VITALS: BP 121/68
[2021-01-14 04:50] LABS: BASOPHILS % (AUTO) 1.7 % (0.0-5.0); EOSINOPHILS % (AUTO) 3.8 % (0.0-8.0); LYMPHOCYTES % (AUTO) 16.8 % (21.0-51.0); MEAN CORPUSCULAR HEMOGLOBIN 24.6 pg (27.0-33.0); MEAN CORPUSCULAR HGB CONC 30.8 g/dL (32.0-36.0); MEAN CORPUSCULAR VOLUME 79.7 fL (79-99); MONOCYTES % (AUTO) 14.5 % (3.0-13.0); NEUTROPHILS % (AUTO) 62.8 % (40.0-77.0); PLATELET COUNT (AUTO) 108 K/uL (130-400); RED BLOOD CELL COUNT(AUTO) 3.01 MIL/uL (4.50-6.20); RED CELL DISTRIBUTION WIDTH 25.7 % (11.0-15.5); WHITE BLOOD COUNT (AUTO) 5.3 K/uL (4.8-10.8)
[2021-01-14 05:00] LABS: ALBUMIN 1.9 g/dL (3.5-5.0); BILIRUBIN,TOTAL 2.5 mg/dL (0.2-1.0); CREATININE 0.9 mg/dL (0.5-1.5); TOTAL PROTEIN, SERUM 6.8 g/dL (6.0-8.3)
[2021-01-14] MEDS: ASCORBIC ACID 500 MG TAB PO SCH (09:24)
[2021-01-14] MEDS: THIAMINE HCL 100 MG TABLET PO SCH (09:24)
[2021-01-14] MEDS: MAGNESIUM OXIDE 400 MG TABLET PO SCH (09:24)
[2021-01-14] MEDS: RIFAXIMIN 550 MG TABLET PO SCH (09:24)
[2021-01-14] MEDS: LEVETIRACETAM 500 MG TABLET PO SCH (09:26)
[2021-01-14] MEDS: LACTULOSE 20 GM/30 ML UDCUP PO SCH (09:26)
[2021-01-14] MEDS: FAMOTIDINE/PF 20 MG/2 ML VIAL IV SCH (09:26)
[2021-01-14] MEDS: FOLIC ACID 1 MG TABLET PO SCH (09:26)
[2021-01-14] MEDS: FERROUS SULFATE 325 MG TABLET.DR PO SCH (09:27)
[2021-01-14] MEDS: MULTIVITAMIN TABLET PO SCH (09:27)
[2021-01-14] MEDS: RISPERIDONE 1 MG TABLET PO SCH (09:30)
[2021-01-14 09:40] VITALS: BP 101/64
[2021-01-14 13:00] VITALS: BP 96/48
[2021-01-15] MEDS ORDERED: THIAMINE HCL 100 MG TABLET PO SCH (09:00)
== END 2021-01-14 13:30 | disposition home or self-care (01) | DRG 442 ==
LOC: EDH 23:11 → EDHIP 23:12 → 4BH 12-31 21:29 → 4DH 01-02 19:38 → 3BH 01-07 19:35
PROVIDERS: ADMIT Family Medicine; ATTEND Family Medicine
DX: K72.90 Hepatic failure, unspecified without coma (principal); M62.82 Rhabdomyolysis; E87.1 Hypo-osmolality and hyponatremia; K70.30 Alcoholic cirrhosis of liver without ascites; G40.909 Epilepsy, unspecified, not intractable, without status epilepticus; F10.229 Alcohol dependence with intoxication, unspecified; E87.6 Hypokalemia; D64.9 Anemia, unspecified; D69.6 Thrombocytopenia, unspecified; E83.42 Hypomagnesemia; E86.0 Dehydration; D50.9 Iron deficiency anemia, unspecified; E88.09 Other disorders of plasma-protein metabolism, not elsewhere classified; Y90.8 Blood alcohol level of 240 mg/100 ml or more; F17.200 Nicotine dependence, unspecified, uncomplicated; R32 Unspecified urinary incontinence; Z91.14 Patient's other noncompliance with medication regimen; Z91.19 Patient's noncompliance with other medical treatment and regimen; Z82.3 Family history of stroke; Z82.49 Family history of ischemic heart disease and other diseases of the circulatory system
CPT/HCPCS: 36415; 70450; 70470; 71045; 76700; 80048; 80053; 80076; 80305; 81003; 82140; 82270; 82550; 82607; 82746; 82977; 83540; 83550; 83690; 83735; 84100; 84145; 84484; 85014; 85018; 85025; 85027; 85378; 85610; 85730; 86804; 86850; 86900; 86901; 87522; 93005; 97039; G0378; J1630; J1756; J1885; J2060; J3430; J3475; J3490; J7030; J7050; Q9967

== ENCOUNTER 2021-05-11 16:18 | Emergency (ER) | payer OTHER ==
[~2021-05-11] VITALS: Ht 175.3 cm; Wt 81.6 kg
[~2021-05-11 16:18] MED LIST changes: +LEVE-43 PO; +THIA100T91 PO
[2021-05-11 16:20] VITALS: BP 117/62
[2021-05-11 16:40] LABS: BASOPHILS % (AUTO) 0.7 % (0.0-5.0); EOSINOPHILS % (AUTO) 5.1 % (0.0-8.0); HEMATOCRIT 34.8 % (42-54); LYMPHOCYTES % (AUTO) 32.7 % (21.0-51.0); MEAN CORPUSCULAR HEMOGLOBIN 30.5 pg (27.0-33.0); MEAN CORPUSCULAR HGB CONC 34.2 g/dL (32.0-36.0); MEAN CORPUSCULAR VOLUME 89.2 fL (79-99); MONOCYTES % (AUTO) 16.2 % (3.0-13.0); PLATELET COUNT (AUTO) 105 K/uL (130-400); RED CELL DISTRIBUTION WIDTH 18.1 % (11.0-15.5); WHITE BLOOD COUNT (AUTO) 6.1 K/uL (4.8-10.8)
[2021-05-11 17:00] LABS: ALBUMIN 2.7 g/dL (3.5-5.0); B-TYPE NATRIURETIC PEPTIDE 33 pg/mL (0-100); BILIRUBIN,TOTAL 3.1 mg/dL (0.2-1.0); CRP QUANTITATIVE 6.6 mg/L (0.00-9.0); TOTAL PROTEIN, SERUM 7.6 g/dL (6.0-8.3)
[2021-05-11 17:31] LABS: APPEARANCE,URINE Clear (CLEAR); BILIRUBIN,URINE Small (NEGATIVE); COLOR,URINE Dark Yellow (YELLOW); GLUCOSE, URINE (UA) Negative (NEGATIVE); KETONES,URINE 15 mg/dL (NEGATIVE); LEUKOCYTE ESTERASE ,URINE Small (NEGATIVE); NITRATE,URINE Positive (NEGATIVE); OCCULT BLOOD,URINE Negative (NEGATIVE); PH,URINE 5.5 (5.0-8.0); PROTEIN,URINE Trace mg/dL (NEGATIVE)
[2021-05-11 17:33] VITALS: BP 124/65
[2021-05-11 17:38] LABS: AMPHET/METH SCREEN,URINE NEGATIVE (NEGATIVE); BARBITURATE SCREEN, URINE NEGATIVE (NEGATIVE); BENZODIAZEPINES SCREEN,URINE NEGATIVE (NEGATIVE); CANNABINOID SCREEN,URINE NEGATIVE (NEGATIVE); COCAINE SCREEN,URINE NEGATIVE (NEGATIVE); OPIATE SCREEN,URINE NEGATIVE (NEGATIVE); PHENCYCLIDINE SCREEN,URINE NEGATIVE (NEGATIVE)
[2021-05-11 17:40] LABS: BACTERIA,URINE Few /HPF (None Seen); RBC,URINE 0-1 /HPF (0-1)
[2021-05-11 17:41] LABS: MUCUS,URINE Few LPF (None Seen); SQUAMOUS EPITHELIAL CELL,UR Few /HPF (0-2); TRANSITIONAL EPI CELLS,URINE Rare /HPF (None Seen)
[2021-05-11] MEDS ORDERED: CEPH500B PO (17:56)
[2021-05-11] MEDS ORDERED: CEFTRIAXONE 1G VIAL IVP ONE (18:00)
[2021-05-11] MEDS ORDERED: LORAZEPAM 2 MG/ML 1 ML VIAL ONE (18:19)
[2021-05-11] MEDS ORDERED: LEVETIRACETAM 500 MG/5 ML SD VIAL IV ONE ×2 (18:26→22:52)
[2021-05-11] MEDS ORDERED: 0.9%NACL 100ML 100 ML ONE (18:28)
[2021-05-11] MEDS ORDERED: LORAZEPAM 2 MG/ML 1 ML VIAL IVP ONE ×2 (18:30)
[2021-05-11] MEDS ORDERED: COMPOUND IV MISC 1 EACH IVSOLN MISC PRN (18:30)
[2021-05-11 18:41] VITALS: BP 114/60
[2021-05-11 20:49] VITALS: BP 106/51
[2021-05-11] MEDS ORDERED: LEVETIRACETAM 1,500 MG in 0.9%NACL 100ML 100 ML IV SCH (22:00)
[2021-05-12 01:13] VITALS: BP 108/56
[2021-05-12] MEDS ORDERED: LEVE-43 PO (02:03)
[2021-05-12] MEDS ORDERED: CEPH500B PO (02:07)
== END 2021-05-12 02:49 | disposition home or self-care (01) ==
LOC: EDH 16:18
DX: N39.0 Urinary tract infection, site not specified (principal); K74.60 Unspecified cirrhosis of liver; R56.9 Unspecified convulsions; F10.139 Alcohol abuse with withdrawal, unspecified; Z20.822 Contact with and (suspected) exposure to COVID-19; Y90.9 Presence of alcohol in blood, level not specified; R41.82 Altered mental status, unspecified; Z87.440 Personal history of urinary (tract) infections; Z79.899 Other long term (current) drug therapy
CPT/HCPCS: 36415; 70450; 71045; 80053; 80305; 81001; 82140; 83880; 84484; 85025; 86140; 87088; 87635; 93005; 96365; 96366; 96375; 99285; C9803; J0696; J1953 ×2; J2060

== ENCOUNTER 2021-05-13 09:19 | Inpatient (IN) | payer OTHER ==
[~2021-05-13] VITALS: Ht 167.6 cm; Wt 80.5 kg
[2021-05-13] VITALS (9 sets, daily range): BP systolic 81–110; BP diastolic 35–59
[~2021-05-13 09:19] MED LIST changes: +CEPH500B PO
[2021-05-13 10:05] LABS: HEMATOCRIT 29.2 % (42-54); MEAN CORPUSCULAR HEMOGLOBIN 30.4 pg (27.0-33.0); MEAN CORPUSCULAR HGB CONC 33.6 g/dL (32.0-36.0); MEAN CORPUSCULAR VOLUME 90.7 fL (79-99); RED BLOOD CELL COUNT(AUTO) 3.22 MIL/uL (4.50-6.20); RED CELL DISTRIBUTION WIDTH 17.1 % (11.0-15.5); WHITE BLOOD COUNT (AUTO) 6.4 K/uL (4.8-10.8)
[2021-05-13 10:23] LABS: BILIRUBIN,TOTAL 4.2 mg/dL (0.2-1.0); CREATININE 3.5 mg/dL (0.5-1.5); POTASSIUM 3.7 mmol/L (3.5-5.1)
[2021-05-13 10:24] LABS: TOTAL PROTEIN, SERUM 6.4 g/dL (6.0-8.3)
[2021-05-13 10:25] LABS: ALBUMIN 2.4 g/dL (3.5-5.0)
[2021-05-13] MEDS ORDERED: LACTATED RINGERS 1000ML 1,000 ML IV ONE (11:12)
[2021-05-13] MEDS ORDERED: LACTATED RINGERS 1000ML 1,000 ML IV SCH (11:30)
[2021-05-13] MEDS ORDERED: LACTULOSE 20 GM/30 ML UDCUP PO ONE (12:00)
[2021-05-13] MEDS ORDERED: M.V.I. IV [ADULT] 10 ML, FOLIC ACID 1 MG, THIAMINE HCL 100 MG in 0.9%NACL 1000ML 1,000 ML IV SCH (12:00)
[2021-05-13] MEDS ORDERED: PANTOPRAZOLE 40 MG/VIAL IVP SCH (12:30)
[2021-05-13] MEDS ORDERED: DEXTROSE 5 % AND 0.9 % NACL 1,000 ML IV ONE (13:00)
[2021-05-13 13:02] LABS: INR 1.51 (0.85-1.15); PROTHROMBIN TIME 15.9 SEC (9.6-11.6)
[2021-05-13 13:03] LABS: PARTIAL THROMBOPLASTIN TIME 31.2 SEC (26.3-35.5)
[2021-05-13] MEDS ORDERED: LEVETIRACETAM 1,000 MG in 0.9%NACL 100ML 100 ML IV SCH ×2 (14:00→21:00)
[2021-05-13] MEDS ORDERED: FAMOTIDINE 20MG VIAL IV SCH (15:58)
[2021-05-13] MEDS ORDERED: 0.9%NACL 1000ML 1,000 ML IV SCH (16:00)
[2021-05-13] MEDS ORDERED: LORAZEPAM 2 MG/ML 1 ML VIAL IVP PRN (16:00)
[2021-05-13] MEDS ORDERED: PHARMACY COMMUNICATION MISC PRN (16:00)
[2021-05-13] MEDS ORDERED: PHARMACY COMMUNICATION MISC SCH (18:00)
[2021-05-13] MEDS ORDERED: CEFTRIAXONE 1G VIAL IVP SCH (18:00)
[2021-05-13 18:06] LABS: APPEARANCE,URINE Clear (CLEAR); BILIRUBIN,URINE Small (NEGATIVE); COLOR,URINE Dark Yellow (YELLOW); GLUCOSE, URINE (UA) Negative (NEGATIVE); KETONES,URINE 15 mg/dL (NEGATIVE); LEUKOCYTE ESTERASE ,URINE Trace (NEGATIVE); NITRATE,URINE Negative (NEGATIVE); OCCULT BLOOD,URINE Negative (NEGATIVE); PROTEIN,URINE Trace mg/dL (NEGATIVE)
[2021-05-13 18:11] LABS: CREATININE,URINE RANDOM 311 mg/dL (30-135); SODIUM,URINE RANDOM < 14 mmol/l (40-220)
[2021-05-13 18:14] LABS: AMPHET/METH SCREEN,URINE NEGATIVE (NEGATIVE); BARBITURATE SCREEN, URINE NEGATIVE (NEGATIVE); BENZODIAZEPINES SCREEN,URINE NEGATIVE (NEGATIVE); CANNABINOID SCREEN,URINE NEGATIVE (NEGATIVE); COCAINE SCREEN,URINE NEGATIVE (NEGATIVE); OPIATE SCREEN,URINE NEGATIVE (NEGATIVE); PHENCYCLIDINE SCREEN,URINE NEGATIVE (NEGATIVE)
[2021-05-13 18:21] LABS: BACTERIA,URINE Few /HPF (None Seen); MUCUS,URINE Few LPF (None Seen); SQUAMOUS EPITHELIAL CELL,UR Few /HPF (0-2)
[2021-05-13] MEDS: LACTULOSE 20 GM/30 ML UDCUP PO SCH (18:43)
[2021-05-13] MEDS ORDERED: ZOSYN 3.375GM+NS 50ML 3.38 GM in 0.9%NACL 50ML 50 ML IV SCH (19:00)
[2021-05-13 19:09] LABS: AMPHET/METH SCREEN,URINE NEGATIVE (NEGATIVE); BARBITURATE SCREEN, URINE NEGATIVE (NEGATIVE); BENZODIAZEPINES SCREEN,URINE NEGATIVE (NEGATIVE); CANNABINOID SCREEN,URINE NEGATIVE (NEGATIVE); COCAINE SCREEN,URINE NEGATIVE (NEGATIVE); OPIATE SCREEN,URINE NEGATIVE (NEGATIVE); PHENCYCLIDINE SCREEN,URINE NEGATIVE (NEGATIVE)
[2021-05-13 19:23] LABS: CREATININE 2.4 mg/dL (0.5-1.5); MAGNESIUM 2.1 mg/dL (1.80-2.40); POTASSIUM 3.9 mmol/L (3.5-5.1)
[2021-05-13] MEDS: LACTATED RINGERS 1000ML 1,000 ML IV SCH ×2 (20:03→23:00)
[2021-05-13] MEDS: MIDODRINE HCL 5 MG TABLET PO SCH ×2 (21:00→21:02)
[2021-05-13] MEDS: CHLORDIAZEPOXIDE HCL 25 MG CAP PO PRN (21:02)
[2021-05-13] MEDS: LEVETIRACETAM 500 MG in 0.9%NACL 100ML 100 ML IV SCH (21:02)
[2021-05-13] MEDS: RIFAXIMIN 550 MG TABLET PO SCH (21:04)
[2021-05-13] MEDS: ZOSYN 3.375GM +NS 50ML IV SCH (21:05)
[2021-05-14] VITALS (24 sets, daily range): BP systolic 93–124; BP diastolic 46–75
[2021-05-14] MEDS: LORAZEPAM 2 MG/ML 1 ML VIAL IVP PRN ×2 (00:08→20:45)
[2021-05-14] MEDS: LACTULOSE 20 GM/30 ML UDCUP PO SCH ×4 (01:23→18:18)
[2021-05-14] MEDS: LACTATED RINGERS 1000ML 1,000 ML IV SCH ×2 (03:00→06:12)
[2021-05-14 03:41] LABS: BASOPHILS % (AUTO) 0.9 % (0.0-5.0); EOSINOPHILS % (AUTO) 7.3 % (0.0-8.0); HEMATOCRIT 27.2 % (42-54); MEAN CORPUSCULAR HEMOGLOBIN 30.2 pg (27.0-33.0); MEAN CORPUSCULAR HGB CONC 34.6 g/dL (32.0-36.0); MEAN CORPUSCULAR VOLUME 87.5 fL (79-99); MONOCYTES % (AUTO) 22.7 % (3.0-13.0); NEUTROPHILS % (AUTO) 37.9 % (40.0-77.0); PLATELET COUNT (AUTO) 82 K/uL (130-400); RED BLOOD CELL COUNT(AUTO) 3.11 MIL/uL (4.50-6.20); RED CELL DISTRIBUTION WIDTH 16.9 % (11.0-15.5); WHITE BLOOD COUNT (AUTO) 4.2 K/uL (4.8-10.8)
[2021-05-14 04:06] LABS: ALBUMIN 2.1 g/dL (3.5-5.0); BILIRUBIN,TOTAL 3.8 mg/dL (0.2-1.0); CREATININE 1.6 mg/dL (0.5-1.5); CRP QUANTITATIVE 10.8 mg/L (0.00-9.0); MAGNESIUM 1.8 mg/dL (1.80-2.40); PHOSPHORUS 4.1 mg/dL (2.5-4.9); POTASSIUM 3.3 mmol/L (3.5-5.1); URIC ACID 8.3 mg/dL (2.6-7.2)
[2021-05-14] MEDS ORDERED: KCL 20 MEQ ERTAB PO SCH (06:00)
[2021-05-14] MEDS ORDERED: 0.9%NACL 1000ML 1,000 ML IV ONE (06:00)
[2021-05-14] MEDS: ZOSYN 3.375GM +NS 50ML IV SCH ×2 (07:58→20:44)
[2021-05-14] MEDS: THIAMINE HCL 100 MG TABLET PO SCH (08:01)
[2021-05-14] MEDS: RIFAXIMIN 550 MG TABLET PO SCH ×2 (08:01→20:44)
[2021-05-14] MEDS: Vitamin B Complex/Vit C/Folic Acid PO SCH (08:01)
[2021-05-14] MEDS: FOLIC ACID 1 MG TABLET PO SCH (08:01)
[2021-05-14] MEDS: PANTOPRAZOLE 40 MG TAB DR PO SCH (08:01)
[2021-05-14] MEDS: LEVETIRACETAM 500 MG in 0.9%NACL 100ML 100 ML IV SCH ×2 (08:02→20:44)
[2021-05-14] MEDS: MIDODRINE HCL 5 MG TABLET PO SCH ×3 (08:03→20:44)
[2021-05-14] MEDS: CHLORDIAZEPOXIDE HCL 25 MG CAP PO PRN ×2 (08:22→20:47)
[2021-05-14] MEDS ORDERED: RENAL DOSE IV ONE (08:30)
[2021-05-14] MEDS ORDERED: FOLIC ACID 1 MG TABLET PO SCH (09:00)
[2021-05-14] MEDS ORDERED: MULTIVITAMIN TABLET PO SCH (09:00)
[2021-05-14] MEDS ORDERED: THIAMINE HCL 100 MG/ML 2ML VIAL IM SCH (09:00)
[2021-05-14] MEDS ORDERED: M.V.I. IV [ADULT] 10 ML, FOLIC ACID 1 MG, THIAMINE HCL 100 MG in 0.9%NACL 1000ML 1,000 ML IV SCH (09:00)
[2021-05-14] MEDS ORDERED: COMPOUND IV MISC 1 EACH IVSOLN MISC PRN (12:00)
[2021-05-14] MEDS ORDERED: POTASSIUM CHLORIDE 10MEQ/100ML 100 ML IV PRN (13:30)
[2021-05-14] MEDS ORDERED: LIDOCAINE HCL-MPF 1% 2ML VIAL IV PRN (13:30)
[2021-05-14] MEDS: 0.9%NACL 1000ML 1,000 ML IV SCH (14:22)
[2021-05-14] MEDS: KCL 20 MEQ ERTAB PO PRN (18:50)
[2021-05-14] MEDS ORDERED: 0.9%NACL 50ML 50 ML IV ONE (20:37)
[2021-05-15] VITALS (17 sets, daily range): BP systolic 94–130; BP diastolic 53–81
[2021-05-15] MEDS: LACTULOSE 20 GM/30 ML UDCUP PO SCH ×4 (01:17→20:13)
[2021-05-15] MEDS: 0.9%NACL 1000ML 1,000 ML IV SCH ×3 (01:17→18:20)
[2021-05-15 03:32] LABS: HEMATOCRIT 27.5 % (42-54); MEAN CORPUSCULAR HEMOGLOBIN 30.5 pg (27.0-33.0); MEAN CORPUSCULAR HGB CONC 33.8 g/dL (32.0-36.0); MEAN CORPUSCULAR VOLUME 90.2 fL (79-99); PLATELET COUNT (AUTO) 70 K/uL (130-400); RED BLOOD CELL COUNT(AUTO) 3.05 MIL/uL (4.50-6.20); RED CELL DISTRIBUTION WIDTH 17.5 % (11.0-15.5); WHITE BLOOD COUNT (AUTO) 3.9 K/uL (4.8-10.8)
[2021-05-15 03:44] LABS: MAGNESIUM 1.4 mg/dL (1.80-2.40); PHOSPHORUS 2.9 mg/dL (2.5-4.9); POTASSIUM 3.3 mmol/L (3.5-5.1)
[2021-05-15] MEDS ORDERED: MAGNESIUM 2GM PREMIX 50ML 50 ML IV ONE (03:52)
[2021-05-15] MEDS: POTASSIUM CHLORIDE 10% ELIXIR 20 MEQ/15 ML UDCUP PO PRN ×2 (03:54→08:01)
[2021-05-15] MEDS: ZOSYN 3.375GM +NS 50ML IV SCH ×2 (07:24→19:59)
[2021-05-15] MEDS: PANTOPRAZOLE 40 MG TAB DR PO SCH (08:00)
[2021-05-15] MEDS: RIFAXIMIN 550 MG TABLET PO SCH ×2 (08:00→19:59)
[2021-05-15] MEDS: THIAMINE HCL 100 MG TABLET PO SCH (08:00)
[2021-05-15] MEDS: Vitamin B Complex/Vit C/Folic Acid PO SCH (08:00)
[2021-05-15] MEDS: FOLIC ACID 1 MG TABLET PO SCH (08:00)
[2021-05-15] MEDS: MIDODRINE HCL 5 MG TABLET PO SCH (08:12)
[2021-05-15] MEDS: LEVETIRACETAM 500 MG in 0.9%NACL 100ML 100 ML IV SCH ×2 (08:25→20:00)
[2021-05-15] MEDS: KCL 20 MEQ ERTAB PO PRN ×3 (09:50→21:42)
[2021-05-15] MEDS: CHLORDIAZEPOXIDE HCL 25 MG CAP PO PRN (19:58)
[2021-05-15] MEDS: LORAZEPAM 2 MG/ML 1 ML VIAL IVP PRN (22:14)
[2021-05-16] VITALS: BP 115/59
[2021-05-16] MEDS: 0.9%NACL 1000ML 1,000 ML IV SCH (03:42)
[2021-05-16 04:00] VITALS: BP 106/52
[2021-05-16 04:00] LABS: BASOPHILS % (AUTO) 0.7 % (0.0-5.0); EOSINOPHILS % (AUTO) 7.9 % (0.0-8.0); HEMATOCRIT 26.8 % (42-54); LYMPHOCYTES % (AUTO) 27.3 % (21.0-51.0); MEAN CORPUSCULAR HEMOGLOBIN 30.1 pg (27.0-33.0); MEAN CORPUSCULAR VOLUME 88.7 fL (79-99); MONOCYTES % (AUTO) 20.7 % (3.0-13.0); PLATELET COUNT (AUTO) 71 K/uL (130-400); RED BLOOD CELL COUNT(AUTO) 3.02 MIL/uL (4.50-6.20); RED CELL DISTRIBUTION WIDTH 17.2 % (11.0-15.5); WHITE BLOOD COUNT (AUTO) 4.5 K/uL (4.8-10.8)
[2021-05-16 04:10] LABS: CREATININE 0.7 mg/dL (0.5-1.5); MAGNESIUM 1.1 mg/dL (1.80-2.40); POTASSIUM 4.2 mmol/L (3.5-5.1)
[2021-05-16 08:00] VITALS: BP 112/59
[2021-05-16] MEDS: MAGNESIUM 2GM PREMIX 50ML 50 ML IV PRN ×2 (11:05→14:33)
[2021-05-16] MEDS: LACTATED RINGERS 1000ML 1,000 ML IV SCH ×2 (11:07→20:22)
[2021-05-16] MEDS: FOLIC ACID 1 MG TABLET PO SCH (11:12)
[2021-05-16] MEDS: Vitamin B Complex/Vit C/Folic Acid PO SCH (11:12)
[2021-05-16] MEDS: PANTOPRAZOLE 40 MG TAB DR PO SCH (11:12)
[2021-05-16] MEDS: LACTULOSE 20 GM/30 ML UDCUP PO SCH ×2 (11:12→20:23)
[2021-05-16] MEDS: THIAMINE HCL 100 MG TABLET PO SCH (11:12)
[2021-05-16] MEDS: RIFAXIMIN 550 MG TABLET PO SCH ×2 (11:13→20:24)
[2021-05-16] MEDS: ZOSYN 3.375GM +NS 50ML IV SCH ×2 (11:16→20:25)
[2021-05-16 12:00] VITALS: BP 113/67
[2021-05-16] MEDS: LEVETIRACETAM 500 MG in 0.9%NACL 100ML 100 ML IV SCH ×2 (13:36→20:25)
[2021-05-16 16:00] VITALS: BP 123/64
[2021-05-16] MEDS ORDERED: KETOROLAC 30MG VIAL (30MG/ML) IV ONE (20:00)
[2021-05-16 20:09] VITALS: BP 109/57
[2021-05-16] MEDS: CHLORDIAZEPOXIDE HCL 25 MG CAP PO PRN (20:23)
[2021-05-17] VITALS (7 sets, daily range): BP systolic 106–125; BP diastolic 54–82
[2021-05-17 03:57] LABS: HEMATOCRIT 27.4 % (42-54); MEAN CORPUSCULAR HEMOGLOBIN 30.5 pg (27.0-33.0); MEAN CORPUSCULAR HGB CONC 33.9 g/dL (32.0-36.0); MEAN CORPUSCULAR VOLUME 89.8 fL (79-99); PLATELET COUNT (AUTO) 66 K/uL (130-400); RED BLOOD CELL COUNT(AUTO) 3.05 MIL/uL (4.50-6.20); RED CELL DISTRIBUTION WIDTH 16.8 % (11.0-15.5); WHITE BLOOD COUNT (AUTO) 3.6 K/uL (4.8-10.8)
[2021-05-17 04:09] LABS: CREATININE 0.9 mg/dL (0.5-1.5); MAGNESIUM 1.6 mg/dL (1.80-2.40)
[2021-05-17] MEDS: LACTATED RINGERS 1000ML 1,000 ML IV SCH ×3 (04:31→22:39)
[2021-05-17 04:52] LABS: BASOPHILS % (MANUAL) 1 % (0-2); EOSINOPHILS % (MANUAL) 5 % (1-6); LYMPHOCYTES % (MANUAL) 40 % (22-44); MAN.DIFF COMMENT-IMPRESSION MANUAL DIFFERENTIAL; MONOCYTES % (MANUAL) 1 % (2-9); SEGMENTED NEUTROPHILS % 53 % (40-70)
[2021-05-17 05:01] LABS: PLATELET MORPHOLOGY COMMENT SLIGHTLY DECREASED
[2021-05-17] MEDS: MAGNESIUM 2GM PREMIX 50ML 50 ML IV PRN ×2 (05:21→09:58)
[2021-05-17] MEDS: RIFAXIMIN 550 MG TABLET PO SCH ×2 (09:57→20:48)
[2021-05-17] MEDS: THIAMINE HCL 100 MG TABLET PO SCH (09:57)
[2021-05-17] MEDS: PANTOPRAZOLE 40 MG TAB DR PO SCH (09:57)
[2021-05-17] MEDS: FOLIC ACID 1 MG TABLET PO SCH (09:57)
[2021-05-17] MEDS: ZOSYN 3.375GM +NS 50ML IV SCH (09:57)
[2021-05-17] MEDS: LEVETIRACETAM 500 MG in 0.9%NACL 100ML 100 ML IV SCH ×2 (09:57→20:49)
[2021-05-17] MEDS: LACTULOSE 20 GM/30 ML UDCUP PO SCH ×2 (09:57→20:49)
[2021-05-17] MEDS: Vitamin B Complex/Vit C/Folic Acid PO SCH (09:57)
[2021-05-17] MEDS ORDERED: KETOROLAC 30MG VIAL (30MG/ML) IV ONE (23:30)
[2021-05-18 04:42] VITALS: BP 104/72
[2021-05-18 06:23] LABS: BASOPHILS % (AUTO) 0.5 % (0.0-5.0); EOSINOPHILS % (AUTO) 7.5 % (0.0-8.0); HEMATOCRIT 28.3 % (42-54); LYMPHOCYTES % (AUTO) 32.3 % (21.0-51.0); MEAN CORPUSCULAR HEMOGLOBIN 30.6 pg (27.0-33.0); MEAN CORPUSCULAR HGB CONC 34.3 g/dL (32.0-36.0); MEAN CORPUSCULAR VOLUME 89.3 fL (79-99); MONOCYTES % (AUTO) 22.1 % (3.0-13.0); NEUTROPHILS % (AUTO) 37.6 % (40.0-77.0); PLATELET COUNT (AUTO) 74 K/uL (130-400); RED BLOOD CELL COUNT(AUTO) 3.17 MIL/uL (4.50-6.20); RED CELL DISTRIBUTION WIDTH 16.7 % (11.0-15.5); WHITE BLOOD COUNT (AUTO) 4.1 K/uL (4.8-10.8)
[2021-05-18 06:43] LABS: CREATININE 0.7 mg/dL (0.5-1.5); POTASSIUM 4.4 mmol/L (3.5-5.1)
[2021-05-18 08:00] VITALS: BP 115/67
[2021-05-18] MEDS: Vitamin B Complex/Vit C/Folic Acid PO SCH (08:47)
[2021-05-18] MEDS: RIFAXIMIN 550 MG TABLET PO SCH ×2 (08:48→20:32)
[2021-05-18] MEDS: THIAMINE HCL 100 MG TABLET PO SCH (08:48)
[2021-05-18] MEDS: LACTULOSE 20 GM/30 ML UDCUP PO SCH ×2 (08:48→20:33)
[2021-05-18] MEDS: FOLIC ACID 1 MG TABLET PO SCH (08:48)
[2021-05-18] MEDS: PANTOPRAZOLE 40 MG TAB DR PO SCH (08:48)
[2021-05-18] MEDS: LEVETIRACETAM 500 MG in 0.9%NACL 100ML 100 ML IV SCH ×2 (09:35→20:32)
[2021-05-18 11:55] VITALS: BP 104/37
[2021-05-18] MEDS: LACTATED RINGERS 1000ML 1,000 ML IV SCH ×2 (14:44→20:32)
[2021-05-18 16:00] VITALS: BP 120/66
[2021-05-18] MEDS: MAGNESIUM 2GM PREMIX 50ML 50 ML IV PRN (20:32)
[2021-05-18] MEDS ORDERED: LACT10SO9 PO ×2 (23:45)
[2021-05-18] MEDS ORDERED: LEVE750T4 PO ×2 (23:45)
[2021-05-19] VITALS: BP 104/55
[2021-05-19] MEDS: LORAZEPAM 2 MG/ML 1 ML VIAL IVP PRN ×2 (00:55→00:59)
[2021-05-19 04:00] VITALS: BP 100/54
[2021-05-19] MEDS: LACTATED RINGERS 1000ML 1,000 ML IV SCH ×3 (04:31→21:19)
[2021-05-19 05:50] LABS: BASOPHILS % (AUTO) 0.8 % (0.0-5.0); EOSINOPHILS % (AUTO) 7.1 % (0.0-8.0); HEMATOCRIT 29.2 % (42-54); LYMPHOCYTES % (AUTO) 39.4 % (21.0-51.0); MEAN CORPUSCULAR HEMOGLOBIN 30.1 pg (27.0-33.0); MEAN CORPUSCULAR HGB CONC 33.6 g/dL (32.0-36.0); MEAN CORPUSCULAR VOLUME 89.6 fL (79-99); MONOCYTES % (AUTO) 18.4 % (3.0-13.0); PLATELET COUNT (AUTO) 82 K/uL (130-400); RED BLOOD CELL COUNT(AUTO) 3.26 MIL/uL (4.50-6.20); RED CELL DISTRIBUTION WIDTH 16.9 % (11.0-15.5); WHITE BLOOD COUNT (AUTO) 3.8 K/uL (4.8-10.8)
[2021-05-19 06:49] LABS: ALBUMIN 2.2 g/dL (3.5-5.0); CREATININE 0.8 mg/dL (0.5-1.5); MAGNESIUM 1.5 mg/dL (1.80-2.40); POTASSIUM 4.3 mmol/L (3.5-5.1); TOTAL PROTEIN, SERUM 6.4 g/dL (6.0-8.3)
[2021-05-19] MEDS: MAGNESIUM 2GM PREMIX 50ML 50 ML IV PRN (06:52)
[2021-05-19] MEDS: PANTOPRAZOLE 40 MG TAB DR PO SCH (08:45)
[2021-05-19] MEDS: LACTULOSE 20 GM/30 ML UDCUP PO SCH ×3 (08:45→21:18)
[2021-05-19] MEDS: FOLIC ACID 1 MG TABLET PO SCH (08:45)
[2021-05-19] MEDS: RIFAXIMIN 550 MG TABLET PO SCH ×2 (08:45→21:18)
[2021-05-19] MEDS: Vitamin B Complex/Vit C/Folic Acid PO SCH (08:45)
[2021-05-19] MEDS: THIAMINE HCL 100 MG TABLET PO SCH (08:45)
[2021-05-19] MEDS: LEVETIRACETAM 500 MG in 0.9%NACL 100ML 100 ML IV SCH ×2 (09:01→21:20)
[2021-05-19] MEDS ORDERED: LEVETIRACETAM 250 MG TABLET PO SCH (14:00)
[2021-05-19 20:00] VITALS: BP 117/66
[2021-05-19] MEDS: HYDROXYZINE 10 MG TABLET PO PRN (22:15)
[2021-05-20] VITALS: BP 116/58
[2021-05-20 04:00] VITALS: BP 96/51
[2021-05-20 06:03] LABS: BASOPHILS % (AUTO) 1.3 % (0.0-5.0); EOSINOPHILS % (AUTO) 8.6 % (0.0-8.0); LYMPHOCYTES % (AUTO) 40.8 % (21.0-51.0); MEAN CORPUSCULAR HEMOGLOBIN 30.2 pg (27.0-33.0); MEAN CORPUSCULAR HGB CONC 33.2 g/dL (32.0-36.0); MEAN CORPUSCULAR VOLUME 90.9 fL (79-99); NEUTROPHILS % (AUTO) 29.8 % (40.0-77.0); PLATELET COUNT (AUTO) 87 K/uL (130-400); RED BLOOD CELL COUNT(AUTO) 3.41 MIL/uL (4.50-6.20); RED CELL DISTRIBUTION WIDTH 17.3 % (11.0-15.5); WHITE BLOOD COUNT (AUTO) 3.7 K/uL (4.8-10.8)
[2021-05-20 06:19] LABS: ALBUMIN 2.2 g/dL (3.5-5.0); CREATININE 0.8 mg/dL (0.5-1.5); TOTAL PROTEIN, SERUM 6.5 g/dL (6.0-8.3)
[2021-05-20] MEDS: LACTATED RINGERS 1000ML 1,000 ML IV SCH ×2 (06:35→18:46)
[2021-05-20 08:00] VITALS: BP 123/74
[2021-05-20] MEDS ORDERED: THIAMINE HCL 100 MG TABLET PO SCH (09:00)
[2021-05-20] MEDS: LEVETIRACETAM 500 MG in 0.9%NACL 100ML 100 ML IV SCH ×2 (09:40→20:12)
[2021-05-20] MEDS: FOLIC ACID 1 MG TABLET PO SCH (09:41)
[2021-05-20] MEDS: Vitamin B Complex/Vit C/Folic Acid PO SCH (09:41)
[2021-05-20] MEDS: THIAMINE HCL 100 MG TABLET PO SCH (09:41)
[2021-05-20] MEDS: PANTOPRAZOLE 40 MG TAB DR PO SCH (09:41)
[2021-05-20] MEDS: RIFAXIMIN 550 MG TABLET PO SCH ×2 (09:41→20:05)
[2021-05-20] MEDS: LACTULOSE 20 GM/30 ML UDCUP PO SCH ×3 (09:41→20:06)
[2021-05-20 12:00] VITALS: BP 128/71
[2021-05-20] MEDS ORDERED: MAGNESIUM 2GM PREMIX 50ML 50 ML IV PRN (14:00)
[2021-05-20] MEDS: MAGNESIUM 2GM PREMIX 50ML 50 ML IV SCH (14:24)
[2021-05-20 20:00] VITALS: BP 93/53
[2021-05-21] VITALS (7 sets, daily range): BP systolic 95–126; BP diastolic 47–80
[2021-05-21 05:27] LABS: BASOPHILS % (AUTO) 1.5 % (0.0-5.0); EOSINOPHILS % (AUTO) 8.1 % (0.0-8.0); HEMATOCRIT 31.8 % (42-54); LYMPHOCYTES % (AUTO) 38.5 % (21.0-51.0); MEAN CORPUSCULAR HEMOGLOBIN 29.9 pg (27.0-33.0); MEAN CORPUSCULAR HGB CONC 33.3 g/dL (32.0-36.0); MEAN CORPUSCULAR VOLUME 89.6 fL (79-99); MONOCYTES % (AUTO) 19.5 % (3.0-13.0); NEUTROPHILS % (AUTO) 32.2 % (40.0-77.0); PLATELET COUNT (AUTO) 84 K/uL (130-400); RED BLOOD CELL COUNT(AUTO) 3.55 MIL/uL (4.50-6.20); RED CELL DISTRIBUTION WIDTH 17.1 % (11.0-15.5); WHITE BLOOD COUNT (AUTO) 4.1 K/uL (4.8-10.8)
[2021-05-21 05:46] LABS: ALBUMIN 2.1 g/dL (3.5-5.0); BILIRUBIN,TOTAL 1.6 mg/dL (0.2-1.0); CREATININE 0.8 mg/dL (0.5-1.5); POTASSIUM 4.2 mmol/L (3.5-5.1); TOTAL PROTEIN, SERUM 6.5 g/dL (6.0-8.3)
[2021-05-21] MEDS: MAGNESIUM 2GM PREMIX 50ML 50 ML IV SCH (08:01)
[2021-05-21] MEDS: RIFAXIMIN 550 MG TABLET PO SCH ×2 (10:10→20:15)
[2021-05-21] MEDS: PANTOPRAZOLE 40 MG TAB DR PO SCH (10:10)
[2021-05-21] MEDS: Vitamin B Complex/Vit C/Folic Acid PO SCH (10:10)
[2021-05-21] MEDS: THIAMINE HCL 100 MG TABLET PO SCH (10:10)
[2021-05-21] MEDS: LACTULOSE 20 GM/30 ML UDCUP PO SCH ×3 (10:10→20:35)
[2021-05-21] MEDS: FOLIC ACID 1 MG TABLET PO SCH (10:10)
[2021-05-21] MEDS ORDERED: LEVETIRACETAM 100 MG/ML 5 ML UDCUP PO SCH (11:45)
[2021-05-21] MEDS ORDERED: MAGNESIUM OXIDE 400 MG TABLET PO ONE (19:59)
[2021-05-21] MEDS: LEVETIRACETAM 250 MG TABLET PO SCH (20:17)
[2021-05-21] MEDS: HYDROXYZINE 10 MG TABLET PO PRN (23:06)
[2021-05-22 05:35] VITALS: BP 113/63
[2021-05-22 05:48] LABS: HEMATOCRIT 33.4 % (42-54); MEAN CORPUSCULAR HEMOGLOBIN 29.8 pg (27.0-33.0); MEAN CORPUSCULAR HGB CONC 33.5 g/dL (32.0-36.0); MEAN CORPUSCULAR VOLUME 88.8 fL (79-99); PLATELET COUNT (AUTO) 87 K/uL (130-400); RED BLOOD CELL COUNT(AUTO) 3.76 MIL/uL (4.50-6.20); WHITE BLOOD COUNT (AUTO) 4.1 K/uL (4.8-10.8)
[2021-05-22 06:01] LABS: CREATININE 0.8 mg/dL (0.5-1.5); MAGNESIUM 1.6 mg/dL (1.80-2.40); POTASSIUM 4.1 mmol/L (3.5-5.1)
[2021-05-22] MEDS: MAGNESIUM 2GM PREMIX 50ML 50 ML IV SCH ×2 (06:33→12:36)
[2021-05-22 07:24] LABS: EOSINOPHILS % (MANUAL) 5 % (1-6); LYMPHOCYTES % (MANUAL) 46 % (22-44); MAN.DIFF COMMENT-IMPRESSION MANUAL DIFFERENTIAL; MONOCYTES % (MANUAL) 13 % (2-9); SEGMENTED NEUTROPHILS % 36 % (40-70)
[2021-05-22 07:25] LABS: PLATELET MORPHOLOGY COMMENT DECREASED
[2021-05-22 07:30] VITALS: BP 110/50
[2021-05-22] MEDS: RIFAXIMIN 550 MG TABLET PO SCH (08:23)
[2021-05-22] MEDS: LEVETIRACETAM 250 MG TABLET PO SCH (08:23)
[2021-05-22] MEDS: LACTULOSE 20 GM/30 ML UDCUP PO SCH ×2 (08:24→13:53)
[2021-05-22] MEDS: PANTOPRAZOLE 40 MG TAB DR PO SCH (08:24)
[2021-05-22] MEDS: THIAMINE HCL 100 MG TABLET PO SCH (08:24)
[2021-05-22] MEDS: FOLIC ACID 1 MG TABLET PO SCH (08:24)
[2021-05-22] MEDS: Vitamin B Complex/Vit C/Folic Acid PO SCH (08:24)
[2021-05-22] MEDS ORDERED: MAGNESIUM OXIDE 400 MG TABLET PO SCH (09:00)
[2021-05-22 11:00] VITALS: BP 103/55
[2021-05-22] MEDS ORDERED: HYDR-3830 PO ×2 (15:02)
[2021-05-22] MEDS ORDERED: LEVE250T PO ×2 (15:02)
[2021-05-22] MEDS ORDERED: FOLI1 PO ×2 (15:02)
[2021-05-22] MEDS ORDERED: THIA100T91 PO ×2 (15:02)
[2021-05-22] MEDS ORDERED: Folic Acid/Vitamin B Comp W-C PO ×2 (15:02)
[2021-05-22] MEDS ORDERED: RIFA550T PO ×2 (15:02)
== END 2021-05-22 16:40 | disposition home or self-care (01) | DRG 100 ==
LOC: EDH 09:19 → EDHIP 09:20 → 2DH 20:14 → 4BH 05-15 23:28 → 3CH 05-17 19:00
PROVIDERS: ADMIT Hospitalist; ATTEND Hospitalist
DX: G40.909 Epilepsy, unspecified, not intractable, without status epilepticus (principal); J69.0 Pneumonitis due to inhalation of food and vomit; N17.9 Acute kidney failure, unspecified; E22.2 Syndrome of inappropriate secretion of antidiuretic hormone; M62.82 Rhabdomyolysis; F10.239 Alcohol dependence with withdrawal, unspecified; E87.2 Acidosis; D61.818 Other pancytopenia; K70.40 Alcoholic hepatic failure without coma; K70.30 Alcoholic cirrhosis of liver without ascites; E86.1 Hypovolemia; E83.42 Hypomagnesemia; E87.6 Hypokalemia; Z20.822 Contact with and (suspected) exposure to COVID-19; F17.200 Nicotine dependence, unspecified, uncomplicated; E86.0 Dehydration; D69.6 Thrombocytopenia, unspecified; I10 Essential (primary) hypertension; E87.8 Other disorders of electrolyte and fluid balance, not elsewhere classified; K31.9 Disease of stomach and duodenum, unspecified; K70.31 Alcoholic cirrhosis of liver with ascites; E88.09 Other disorders of plasma-protein metabolism, not elsewhere classified; Z91.19 Patient's noncompliance with other medical treatment and regimen; Z82.3 Family history of stroke; Z82.49 Family history of ischemic heart disease and other diseases of the circulatory system
CPT/HCPCS: 36415; 70450; 73562; 73620; 76700; 76705; 80048; 80053; 80177; 80185; 80305; 81001; 82140; 82306; 82550; 82570; 83605; 83735; 83874; 83935; 84100; 84300; 84484; 84550; 85025; 85027; 85610; 85730; 86140; 87040; 87088; 87635; 93005; 93975; 99291; C9113; C9803; G0378; J0696; J1885; J1953; J2060; J2543; J3411; J3475; J3490; J7030; J7042; J7120

== ENCOUNTER 2021-10-25 08:43 | Inpatient (IN) | payer OTHER ==
[~2021-10-25] VITALS: Ht 175.3 cm; Wt 72.9 kg
[~2021-10-25 08:43] MED LIST changes: -CEPH500B PO; +FOLI1 PO; +Folic Acid/Vitamin B Comp W-C PO; +HYDR-3830 PO; -LEVE-43 PO; +LEVE250T PO; +LEVE750T4 PO; +RIFA550T PO
[2021-10-25] MEDS ORDERED: NALOXONE HCL 0.4 MG/1 ML ML ONE ×2 (08:53→09:10)
[2021-10-25] MEDS ORDERED: LORAZEPAM 2 MG/ML 1 ML VIAL ONE ×2 (09:01→09:22)
[2021-10-25 09:05] LABS: APPEARANCE,URINE CLEAR (CLEAR); BILIRUBIN,URINE NEGATIVE (NEGATIVE); COLOR,URINE YELLOW (YELLOW); GLUCOSE, URINE (UA) NEGATIVE (NEGATIVE); KETONES,URINE NEGATIVE (NEGATIVE); LEUKOCYTE ESTERASE ,URINE NEGATIVE (NEGATIVE); NITRATE,URINE NEGATIVE (NEGATIVE); OCCULT BLOOD,URINE MODERATE (NEGATIVE); PROTEIN,URINE TRACE mg/dL (NEGATIVE); UROBILINOGEN,URINE 0.2 mg/dL (0.2-1.0)
[2021-10-25 09:06] LABS: ABG BASE EXCESS -19.6 mmol/L (-2.0-3.0); ABG HCO3 9.6 mmol/L (21.0-28.0); ABG OXYGEN SATURATION 99.3 % (95.0-99.0); ABG PCO2 34 mmHg (35-48)
[2021-10-25 09:08] LABS: BASOPHILS % (AUTO) 0.8 % (0.0-5.0); EOSINOPHILS % (AUTO) 4.4 % (0.0-8.0); HEMATOCRIT 43.9 % (42-54); LYMPHOCYTES % (AUTO) 45.7 % (21.0-51.0); MEAN CORPUSCULAR HEMOGLOBIN 29.1 pg (27.0-33.0); MEAN CORPUSCULAR HGB CONC 31.4 g/dL (32.0-36.0); MEAN CORPUSCULAR VOLUME 92.4 fL (79-99); MONOCYTES % (AUTO) 7.4 % (3.0-13.0); NEUTROPHILS % (AUTO) 38.7 % (40.0-77.0); PLATELET COUNT (AUTO) 107 K/uL (130-400); RED BLOOD CELL COUNT(AUTO) 4.75 MIL/uL (4.50-6.20); RED CELL DISTRIBUTION WIDTH 15.5 % (11.0-15.5)
[2021-10-25 09:12] LABS: AMPHET/METH SCREEN,URINE NEGATIVE (NEGATIVE); BACTERIA,URINE None Seen /HPF (None Seen); BARBITURATE SCREEN, URINE NEGATIVE (NEGATIVE); BENZODIAZEPINES SCREEN,URINE NEGATIVE (NEGATIVE); CANNABINOID SCREEN,URINE NEGATIVE (NEGATIVE); COCAINE SCREEN,URINE NEGATIVE (NEGATIVE); FINE GRANULAR CASTS,URINE 0-2 /LPF (None Seen); HYALINE CASTS, URINE 0-1 /LPF (0-1 /LPF); OPIATE SCREEN,URINE NEGATIVE (NEGATIVE); PHENCYCLIDINE SCREEN,URINE NEGATIVE (NEGATIVE); RBC,URINE 0-1 /HPF (0-1); SQUAMOUS EPITHELIAL CELL,UR 0-2 /HPF (0-2); WBC,URINE 0-1 /HPF (0-1)
[2021-10-25 09:23] LABS: INR 1.3 (0.85-1.15); PROTHROMBIN TIME 13.8 SEC (9.6-11.6)
[2021-10-25 09:24] LABS: PARTIAL THROMBOPLASTIN TIME 28.6 SEC (26.3-35.5)
[2021-10-25 09:25] LABS: B-TYPE NATRIURETIC PEPTIDE 80 pg/mL (0-100)
[2021-10-25 09:41] LABS: ALBUMIN 2.9 g/dL (3.5-5.0); BILIRUBIN,TOTAL 1.3 mg/dL (0.2-1.0); TOTAL PROTEIN, SERUM 7.4 g/dL (6.0-8.3)
[2021-10-25] MEDS ORDERED: NALOXONE HCL 0.4 MG/1 ML ML IVP SCH ×2 (10:00)
[2021-10-25] MEDS ORDERED: 0.9%NACL 1000ML 1,000 ML IV SCH ×3 (10:00→12:00)
[2021-10-25] MEDS ORDERED: LORAZEPAM 2 MG/ML 1 ML VIAL IVP ONE ×3 (10:00)
[2021-10-25] MEDS ORDERED: LACTULOSE 20 GM/30 ML UDCUP PR SCH (12:00)
[2021-10-25] MEDS ORDERED: ONDANSETRON 4MG INJ IV PRN (12:00)
[2021-10-25] MEDS ORDERED: RIFAXIMIN 550 MG TABLET PO SCH (12:00)
[2021-10-25] MEDS ORDERED: PHYTONADIONE 10 MG in 0.9%NACL 50ML 50 ML IVPB SCH (12:00)
[2021-10-25] MEDS ORDERED: LACTULOSE 20 GM/30 ML UDCUP ONE (12:22)
[2021-10-25] MEDS ORDERED: LACTULOSE 20 GM/30 ML UDCUP PO ONE (12:30)
[2021-10-25 12:49] LABS: INR 1.28 (0.85-1.15); PROTHROMBIN TIME 13.6 SEC (9.6-11.6)
[2021-10-25 12:51] LABS: PARTIAL THROMBOPLASTIN TIME 27.6 SEC (26.3-35.5)
[2021-10-25] MEDS ORDERED: COMPOUND IV MISC 1 EACH IVSOLN MISC PRN (13:00)
[2021-10-25] MEDS: LACTULOSE 20 GM/30 ML UDCUP PO SCH ×3 (13:00→21:13)
[2021-10-25] MEDS: CEFTRIAXONE 1G VIAL IV SCH (13:22)
[2021-10-25] MEDS ORDERED: LEVETIRACETAM 1,000 MG in 0.9%NACL 100ML 100 ML IV SCH (14:00)
[2021-10-25] MEDS ORDERED: LEVE250T2 PO (15:18)
[2021-10-25 17:04] LABS: CREATININE 0.9 mg/dL (0.5-1.5); POTASSIUM 4.3 mmol/L (3.5-5.1)
[2021-10-25 17:51] LABS: ABG BASE EXCESS -3.5 mmol/L (-2.0-3.0); ABG HCO3 19.4 mmol/L (21.0-28.0); ABG OXYGEN SATURATION 97.4 % (95.0-99.0); ABG PCO2 30 mmHg (35-48)
[2021-10-25] MEDS ORDERED: LORAZEPAM 2 MG/ML 1 ML VIAL IM PRN (19:00)
[2021-10-25] MEDS ORDERED: LACTULOSE 20 GM/30 ML UDCUP PO PRN (19:00)
[2021-10-25] MEDS: 0.9%NACL 1000ML 1,000 ML IV SCH (19:00)
[2021-10-25] MEDS: RIFAXIMIN 550 MG TABLET PO SCH (21:00)
[2021-10-25] MEDS: LEVETIRACETAM 1,000 MG in 0.9%NACL 100ML 100 ML IV SCH (21:05)
[2021-10-25] MEDS: FAMOTIDINE 20MG VIAL IV SCH (21:05)
[2021-10-25 21:52] LABS: MYOGLOBIN 262 ng/mL (10-92)
[2021-10-25 21:54] LABS: CREATINE KINASE, TOTAL 2479 U/L (21-232)
[2021-10-26] MEDS: 0.9%NACL 1000ML 1,000 ML IV SCH ×4 (03:22→21:38)
[2021-10-26 07:19] LABS: HEMATOCRIT 33.7 % (42-54); MEAN CORPUSCULAR HEMOGLOBIN 29.3 pg (27.0-33.0); MEAN CORPUSCULAR HGB CONC 33.5 g/dL (32.0-36.0); MEAN CORPUSCULAR VOLUME 87.3 fL (79-99); RED BLOOD CELL COUNT(AUTO) 3.86 MIL/uL (4.50-6.20); RED CELL DISTRIBUTION WIDTH 15.4 % (11.0-15.5); WHITE BLOOD COUNT (AUTO) 6.1 K/uL (4.8-10.8)
[2021-10-26 07:50] LABS: ALBUMIN 2.5 g/dL (3.5-5.0); BILIRUBIN,TOTAL 2.5 mg/dL (0.2-1.0); CREATININE 0.7 mg/dL (0.5-1.5); POTASSIUM 3.9 mmol/L (3.5-5.1); TOTAL PROTEIN, SERUM 6.3 g/dL (6.0-8.3)
[2021-10-26] MEDS: RIFAXIMIN 550 MG TABLET PO SCH ×2 (08:36→21:21)
[2021-10-26] MEDS: LEVETIRACETAM 1,000 MG in 0.9%NACL 100ML 100 ML IV SCH ×2 (08:36→21:22)
[2021-10-26] MEDS: LACTULOSE 20 GM/30 ML UDCUP PO SCH ×3 (08:36→21:21)
[2021-10-26] MEDS: FAMOTIDINE 20MG VIAL IV SCH ×2 (08:36→21:21)
[2021-10-26] MEDS: M.V.I. IV [ADULT] 10 ML, FOLIC ACID 1 MG, THIAMINE HCL 100 MG in 0.9%NACL 1000ML 1,000 ML IV SCH (09:53)
[2021-10-26] MEDS: CEFTRIAXONE 1G VIAL IV SCH (12:44)
[2021-10-26 14:43] LABS: MYOGLOBIN 102 ng/mL (10-92)
[2021-10-26 15:04] LABS: CREATINE KINASE, TOTAL 2097 U/L (21-232)
[2021-10-26 16:40] VITALS: BP 120/74
[2021-10-26 20:15] VITALS: BP 97/53
[2021-10-26 21:51] LABS: MYOGLOBIN 71 ng/mL (10-92)
[2021-10-26 21:58] LABS: CREATINE KINASE, TOTAL 1999 U/L (21-232)
[2021-10-26 23:52] VITALS: BP 99/46
[2021-10-27] MEDS: 0.9%NACL 1000ML 1,000 ML IV SCH ×4 (03:45→23:49)
[2021-10-27 03:57] VITALS: BP 98/52
[2021-10-27 07:59] VITALS: BP 113/69
[2021-10-27] MEDS: RIFAXIMIN 550 MG TABLET PO SCH ×2 (08:59→21:40)
[2021-10-27] MEDS: LACTULOSE 20 GM/30 ML UDCUP PO SCH ×3 (08:59→21:40)
[2021-10-27] MEDS: FAMOTIDINE 20MG VIAL IV SCH ×2 (08:59→21:40)
[2021-10-27] MEDS: M.V.I. IV [ADULT] 10 ML, FOLIC ACID 1 MG, THIAMINE HCL 100 MG in 0.9%NACL 1000ML 1,000 ML IV SCH (09:30)
[2021-10-27] MEDS: LEVETIRACETAM 1,000 MG in 0.9%NACL 100ML 100 ML IV SCH ×2 (09:30→21:42)
[2021-10-27 09:50] LABS: MYOGLOBIN 63 ng/mL (10-92)
[2021-10-27 09:54] LABS: CREATINE KINASE, TOTAL 1642 U/L (21-232)
[2021-10-27 10:03] LABS: BASOPHILS % (AUTO) 0.4 % (0.0-5.0); EOSINOPHILS % (AUTO) 2.8 % (0.0-8.0); HEMATOCRIT 33.2 % (42-54); LYMPHOCYTES % (AUTO) 26.3 % (21.0-51.0); MEAN CORPUSCULAR HGB CONC 33.1 g/dL (32.0-36.0); MEAN CORPUSCULAR VOLUME 87.6 fL (79-99); MONOCYTES % (AUTO) 21.6 % (3.0-13.0); NEUTROPHILS % (AUTO) 48.5 % (40.0-77.0); PLATELET COUNT (AUTO) 66 K/uL (130-400); RED BLOOD CELL COUNT(AUTO) 3.79 MIL/uL (4.50-6.20); RED CELL DISTRIBUTION WIDTH 15.3 % (11.0-15.5); WHITE BLOOD COUNT (AUTO) 4.7 K/uL (4.8-10.8)
[2021-10-27 10:49] LABS: ALBUMIN 2.3 g/dL (3.5-5.0); BILIRUBIN,TOTAL 2.5 mg/dL (0.2-1.0); CREATININE 0.7 mg/dL (0.5-1.5); POTASSIUM 3.5 mmol/L (3.5-5.1); TOTAL PROTEIN, SERUM 6.1 g/dL (6.0-8.3)
[2021-10-27 11:05] VITALS: BP 94/53
[2021-10-27 12:20] LABS: PLATELET MORPHOLOGY COMMENT MARKED DECREASE
[2021-10-27] MEDS: CEFTRIAXONE 1G VIAL IV SCH (12:27)
[2021-10-27 16:06] VITALS: BP 113/72
[2021-10-27 20:00] VITALS: BP 112/70
[2021-10-27 23:16] VITALS: BP 110/68
[2021-10-28 04:20] VITALS: BP 112/64
[2021-10-28] MEDS: 0.9%NACL 1000ML 1,000 ML IV SCH ×3 (06:03→21:30)
[2021-10-28 08:03] VITALS: BP 110/62
[2021-10-28 08:25] LABS: BASOPHILS % (AUTO) 0.5 % (0.0-5.0); EOSINOPHILS % (AUTO) 4.8 % (0.0-8.0); HEMATOCRIT 34.3 % (42-54); LYMPHOCYTES % (AUTO) 36.3 % (21.0-51.0); MEAN CORPUSCULAR HEMOGLOBIN 29.9 pg (27.0-33.0); MEAN CORPUSCULAR HGB CONC 34.7 g/dL (32.0-36.0); MEAN CORPUSCULAR VOLUME 86.2 fL (79-99); MONOCYTES % (AUTO) 12.1 % (3.0-13.0); NEUTROPHILS % (AUTO) 46.1 % (40.0-77.0); PLATELET COUNT (AUTO) 67 K/uL (130-400); RED BLOOD CELL COUNT(AUTO) 3.98 MIL/uL (4.50-6.20); RED CELL DISTRIBUTION WIDTH 14.9 % (11.0-15.5); WHITE BLOOD COUNT (AUTO) 4.4 K/uL (4.8-10.8)
[2021-10-28] MEDS: M.V.I. IV [ADULT] 10 ML, FOLIC ACID 1 MG, THIAMINE HCL 100 MG in 0.9%NACL 1000ML 1,000 ML IV SCH (09:00)
[2021-10-28 09:04] LABS: ALBUMIN 2.8 g/dL (3.5-5.0); CREATININE 0.8 mg/dL (0.5-1.5); CRP QUANTITATIVE 10.6 mg/L (0.00-9.0); MAGNESIUM 1.4 mg/dL (1.80-2.40); POTASSIUM 3.8 mmol/L (3.5-5.1); TOTAL PROTEIN, SERUM 7.1 g/dL (6.0-8.3)
[2021-10-28] MEDS: FAMOTIDINE 20MG VIAL IV SCH ×2 (09:58→21:30)
[2021-10-28] MEDS: LACTULOSE 20 GM/30 ML UDCUP PO SCH ×3 (09:58→21:28)
[2021-10-28] MEDS: RIFAXIMIN 550 MG TABLET PO SCH ×2 (09:58→21:28)
[2021-10-28 12:00] VITALS: BP 102/64
[2021-10-28] MEDS: LEVETIRACETAM 1,000 MG in 0.9%NACL 100ML 100 ML IV SCH ×2 (13:20→21:28)
[2021-10-28] MEDS: CEFTRIAXONE 1G VIAL IV SCH (13:24)
[2021-10-28 16:00] VITALS: BP 110/56
[2021-10-28 20:51] VITALS: BP 112/70
[2021-10-28 23:46] VITALS: BP 112/69
[2021-10-29 03:59] VITALS: BP 131/87
[2021-10-29] MEDS: 0.9%NACL 1000ML 1,000 ML IV SCH ×2 (05:22→09:40)
[2021-10-29 07:17] LABS: BASOPHILS % (AUTO) 0.9 % (0.0-5.0); EOSINOPHILS % (AUTO) 7.4 % (0.0-8.0); HEMATOCRIT 33.2 % (42-54); LYMPHOCYTES % (AUTO) 39.6 % (21.0-51.0); MEAN CORPUSCULAR HGB CONC 34.6 g/dL (32.0-36.0); MEAN CORPUSCULAR VOLUME 86.7 fL (79-99); MONOCYTES % (AUTO) 16.2 % (3.0-13.0); NEUTROPHILS % (AUTO) 35.7 % (40.0-77.0); PLATELET COUNT (AUTO) 84 K/uL (130-400); RED BLOOD CELL COUNT(AUTO) 3.83 MIL/uL (4.50-6.20); RED CELL DISTRIBUTION WIDTH 15.1 % (11.0-15.5); WHITE BLOOD COUNT (AUTO) 4.3 K/uL (4.8-10.8)
[2021-10-29 07:36] LABS: POTASSIUM 3.9 mmol/L (3.5-5.1)
[2021-10-29 07:37] LABS: CREATININE 0.7 mg/dL (0.5-1.5)
[2021-10-29 08:00] VITALS: BP 108/62
[2021-10-29] MEDS: RIFAXIMIN 550 MG TABLET PO SCH ×2 (08:55→21:27)
[2021-10-29] MEDS: LACTULOSE 20 GM/30 ML UDCUP PO SCH ×3 (08:55→21:27)
[2021-10-29] MEDS: FAMOTIDINE 20MG VIAL IV SCH ×2 (08:56→21:27)
[2021-10-29] MEDS: LEVETIRACETAM 1,000 MG in 0.9%NACL 100ML 100 ML IV SCH ×2 (08:56→21:27)
[2021-10-29 12:12] VITALS: BP 118/60
[2021-10-29] MEDS: CEFTRIAXONE 1G VIAL IV SCH (15:20)
[2021-10-29] MEDS: M.V.I. IV [ADULT] 10 ML, FOLIC ACID 1 MG, THIAMINE HCL 100 MG in 0.9%NACL 1000ML 1,000 ML IV SCH (15:45)
[2021-10-29 16:05] VITALS: BP 107/57
[2021-10-29 20:00] VITALS: BP 112/64
[2021-10-29] MEDS ORDERED: LEVE10006 PO (20:23)
[2021-10-29] MEDS ORDERED: LACT10SO9 PO (20:23)
[2021-10-29] MEDS ORDERED: RIFA550T PO (20:23)
[2021-10-30] VITALS: BP 113/88
[2021-10-30] MEDS: 0.9%NACL 1000ML 1,000 ML IV SCH (03:51)
[2021-10-30 05:03] VITALS: BP_SYST 116; BP_SYST 121; BP_DIAS 50; BP_DIAS 65
[2021-10-30 08:00] VITALS: BP 119/58
[2021-10-30] MEDS: LEVETIRACETAM 1,000 MG in 0.9%NACL 100ML 100 ML IV SCH (08:32)
[2021-10-30] MEDS: RIFAXIMIN 550 MG TABLET PO SCH (08:32)
[2021-10-30] MEDS: LACTULOSE 20 GM/30 ML UDCUP PO SCH (08:32)
[2021-10-30] MEDS: FAMOTIDINE 20MG VIAL IV SCH (08:32)
== END 2021-10-30 11:50 | disposition home or self-care (01) | DRG 100 ==
LOC: EDH 08:43 → EDHIP 08:44 → UNDOADMIN 11:55 → EDHIP 19:54 → 4BH 10-26 14:51
PROVIDERS: ADMIT Internal Medicine; ATTEND Internal Medicine
DX: G40.901 Epilepsy, unspecified, not intractable, with status epilepticus (principal); E43 Unspecified severe protein-calorie malnutrition; E87.2 Acidosis; M62.82 Rhabdomyolysis; F10.239 Alcohol dependence with withdrawal, unspecified; D68.4 Acquired coagulation factor deficiency; K70.30 Alcoholic cirrhosis of liver without ascites; Z20.822 Contact with and (suspected) exposure to COVID-19; F17.200 Nicotine dependence, unspecified, uncomplicated; E88.09 Other disorders of plasma-protein metabolism, not elsewhere classified; I78.1 Nevus, non-neoplastic; K70.40 Alcoholic hepatic failure without coma; I10 Essential (primary) hypertension; Z82.3 Family history of stroke; Z82.49 Family history of ischemic heart disease and other diseases of the circulatory system; Z79.899 Other long term (current) drug therapy; Z91.14 Patient's other noncompliance with medication regimen; Z91.19 Patient's noncompliance with other medical treatment and regimen; Z68.23 Body mass index [BMI] 23.0-23.9, adult
CPT/HCPCS: 36415; 36600; 70450; 71045; 76705; 80048; 80053; 80305; 81001; 82140; 82435; 82550; 82803; 82947; 83605; 83735; 83874; 83880; 84132; 84145; 84295; 84484; 85018; 85025; 85027; 85378; 85610; 85651; 85730; 86140; 87635; 93005; 99291; G0378; J0696; J1953; J2060; J2310; J3411; J3430; J3490; J7030

== ENCOUNTER 2021-11-20 03:06 | Inpatient (IN) | payer OTHER ==
[~2021-11-20 03:06] MED LIST changes: -Folic Acid/Vitamin B Comp W-C PO; +LEVE10006 PO; -LEVE250T PO; -LEVE750T4 PO; -THIA100T91 PO
[2021-11-20] MEDS ORDERED: LEVETIRACETAM 500 MG/5 ML SD VIAL IV ONE (03:51)
[2021-11-20 03:58] LABS: HEMATOCRIT 39.9 % (42-54); MEAN CORPUSCULAR HEMOGLOBIN 29.5 pg (27.0-33.0); MEAN CORPUSCULAR HGB CONC 32.6 g/dL (32.0-36.0); MEAN CORPUSCULAR VOLUME 90.5 fL (79-99); PLATELET COUNT (AUTO) 79 K/uL (130-400); RED BLOOD CELL COUNT(AUTO) 4.41 MIL/uL (4.50-6.20); RED CELL DISTRIBUTION WIDTH 15.7 % (11.0-15.5); WHITE BLOOD COUNT (AUTO) 3.9 K/uL (4.8-10.8)
[2021-11-20 04:06] LABS: CARBON DIOXIDE 27 mmol/L (21-32); CHLORIDE 106 mmol/L (101-111); CREATININE 0.8 mg/dL (0.5-1.5); GLOMERULAR FILTR. RATE CALC 109 mL/min (>60); GLUCOSE,RANDOM 120 mg/dL (70-105); SODIUM SERUM 140 mmol/L (136-145); UREA NITROGEN, BLOOD 9 mg/dL (7-18)
[2021-11-20 04:11] LABS: ALANINE AMINOTRANSFERASE 42 U/L (12-78); ALBUMIN 2.8 g/dL (3.5-5.0); ALCOHOL, BLOOD < 3 mg/dL (0-10); ASPARTATE AMINOTRANSFERASE 49 U/L (10-37); BILIRUBIN,TOTAL 1.6 mg/dL (0.2-1.0); LYMPHOCYTES % (AUTO) 28.3 % (21.0-51.0); MONOCYTES % (AUTO) 14.6 % (3.0-13.0); NEUTROPHILS % (AUTO) 52.8 % (40.0-77.0); TOTAL PROTEIN, SERUM 7.3 g/dL (6.0-8.3)
[2021-11-20 04:16] LABS: AMMONIA 73 umol/L (11-32)
[2021-11-20] MEDS ORDERED: LORAZEPAM 2 MG/ML 1 ML VIAL ONE (04:17)
[2021-11-20] MEDS ORDERED: 0.9%NACL 1000ML 1,000 ML IV ONE ×2 (04:44→05:00)
[2021-11-20] MEDS ORDERED: LEVETIRACETAM 1,500 MG in 0.9%NACL 100ML 100 ML IV ONE (05:00)
[2021-11-20] MEDS ORDERED: LORAZEPAM 2 MG/ML 1 ML VIAL IVP ONE (05:00)
[2021-11-20 05:06] LABS: APPEARANCE,URINE Clear (CLEAR); BILIRUBIN,URINE Negative (NEGATIVE); COLOR,URINE Dark Yellow (YELLOW); GLUCOSE, URINE (UA) Negative (NEGATIVE); KETONES,URINE Trace mg/dL (NEGATIVE); LEUKOCYTE ESTERASE ,URINE Trace (NEGATIVE); NITRATE,URINE Negative (NEGATIVE); OCCULT BLOOD,URINE Negative (NEGATIVE); PROTEIN,URINE Negative (NEGATIVE)
[2021-11-20 05:13] LABS: AMPHET/METH SCREEN,URINE NEGATIVE (NEGATIVE); BARBITURATE SCREEN, URINE NEGATIVE (NEGATIVE); BENZODIAZEPINES SCREEN,URINE NEGATIVE (NEGATIVE); CANNABINOID SCREEN,URINE NEGATIVE (NEGATIVE); COCAINE SCREEN,URINE NEGATIVE (NEGATIVE); OPIATE SCREEN,URINE NEGATIVE (NEGATIVE); PHENCYCLIDINE SCREEN,URINE NEGATIVE (NEGATIVE)
[2021-11-20 05:24] LABS: ACETAMINOPHEN < 1 mcg/mL (10-29); CREATINE KINASE, TOTAL 214 U/L (21-232); SALICYLATE < 2.8 mg/dL (2.8-20.0)
[2021-11-20 05:26] LABS: BACTERIA,URINE None Seen /HPF (None Seen); MUCUS,URINE Rare LPF (None Seen); RBC,URINE None Seen /HPF (0-1); SQUAMOUS EPITHELIAL CELL,UR Few /HPF (0-2); WBC,URINE None Seen /HPF (0-1)
[2021-11-20] MEDS ORDERED: HALOPERIDOL INJ 5 MG/ML VIAL ONE (05:28)
[2021-11-20] MEDS ORDERED: CHLORDIAZEPOXIDE HCL 25 MG CAP PO PRN ×3 (05:30→06:00)
[2021-11-20] MEDS ORDERED: PHARMACY COMMUNICATION MISC PRN ×2 (05:30→06:00)
[2021-11-20] MEDS ORDERED: THIAMINE HCL 100 MG/ML 2ML VIAL ONE (05:30)
[2021-11-20] MEDS ORDERED: M.V.I. IV [ADULT] 10 ML VIAL IV ONE (05:31)
[2021-11-20] MEDS ORDERED: M.V.I. IV [ADULT] 10 ML, FOLIC ACID 1 MG, THIAMINE HCL 100 MG in 0.9%NACL 1000ML 1,000 ML IV SCH ×2 (06:00→09:49)
[2021-11-20] MEDS ORDERED: PROMETHAZINE HCL 25 MG TABLET PO PRN (06:00)
[2021-11-20] MEDS ORDERED: ONDANSETRON 4MG INJ IV PRN (06:00)
[2021-11-20] MEDS ORDERED: HALOPERIDOL INJ 5 MG/ML VIAL IM SCH ×2 (06:00→07:30)
[2021-11-20] MEDS ORDERED: ACETAMINOPHEN 500 MG TABLET PO PRN (06:00)
[2021-11-20] MEDS ORDERED: LORAZEPAM 2 MG/ML 1 ML VIAL IVP PRN (06:00)
[2021-11-20] MEDS: LORAZEPAM 2 MG/ML 1 ML VIAL IVP PRN ×3 (06:06→07:59)
[2021-11-20] MEDS ORDERED: LACTULOSE 20 GM/30 ML UDCUP PR SCH (09:00)
[2021-11-20] MEDS ORDERED: PANTOPRAZOLE 40 MG/VIAL IVP SCH (09:30)
[2021-11-20] MEDS ORDERED: THIAMINE HCL 100 MG/ML 2ML VIAL IVP SCH (09:30)
[2021-11-20] MEDS ORDERED: PHARMACY COMMUNICATION MISC SCH (09:30)
[2021-11-20] MEDS ORDERED: LACTULOSE 20 GM/30 ML UDCUP PO ONE (09:43)
[2021-11-20] MEDS ORDERED: [UNRECOGNIZED DRUG - OTHER] PO SCH ×2 (10:00)
[2021-11-20] MEDS ORDERED: LACTULOSE PO SCH ×2 (10:00)
[2021-11-20] MEDS ORDERED: UDCUP PO SCH ×2 (10:00)
[2021-11-20] MEDS: CEFTRIAXONE 1G VIAL IVP SCH (11:50)
[2021-11-20] MEDS: RIFAXIMIN 550 MG TABLET PO SCH ×2 (12:30→22:25)
[2021-11-20] MEDS ORDERED: GLUCAGON 1MG KIT 1 MG ML IM PRN (16:00)
[2021-11-20] MEDS ORDERED: DEXTROSE 50%-WATER 50 ML DISP.SYRIN IV PRN (16:00)
[2021-11-20] MEDS ORDERED: DEXTROSE 50%-WATER 50 ML DISP.SYRIN IV ONE (16:10)
[2021-11-20] MEDS: LACTULOSE 20 GM/30 ML UDCUP PO SCH ×2 (16:18→22:33)
[2021-11-20] MEDS: LEVETIRACETAM 1,000 MG in 0.9%NACL 100ML 100 ML IV SCH (16:31)
[2021-11-20] MEDS: LACTATED RINGERS 1000ML 1,000 ML IV SCH (16:50)
[2021-11-21] MEDS ORDERED: LEVETIRACETAM 500 MG/5 ML SD VIAL IV ONE (05:27)
[2021-11-21] MEDS ORDERED: 0.9%NACL 100ML 100 ML ONE (05:27)
[2021-11-21] MEDS: LEVETIRACETAM 1,000 MG in 0.9%NACL 100ML 100 ML IV SCH (05:34)
[2021-11-21 06:32] LABS: EOSINOPHILS % (AUTO) 3.6 % (0.0-8.0); HEMATOCRIT 36.9 % (42-54); LYMPHOCYTES % (AUTO) 38.9 % (21.0-51.0); MEAN CORPUSCULAR HEMOGLOBIN 28.9 pg (27.0-33.0); MEAN CORPUSCULAR HGB CONC 33.1 g/dL (32.0-36.0); MEAN CORPUSCULAR VOLUME 87.4 fL (79-99); MONOCYTES % (AUTO) 15.9 % (3.0-13.0); NEUTROPHILS % (AUTO) 40.4 % (40.0-77.0); PLATELET COUNT (AUTO) 73 K/uL (130-400); RED BLOOD CELL COUNT(AUTO) 4.22 MIL/uL (4.50-6.20); RED CELL DISTRIBUTION WIDTH 15.6 % (11.0-15.5); WHITE BLOOD COUNT (AUTO) 4.1 K/uL (4.8-10.8)
[2021-11-21 06:40] LABS: INR 1.32 (0.85-1.15)
[2021-11-21 06:42] LABS: PARTIAL THROMBOPLASTIN TIME 31.6 SEC (26.3-35.5)
[2021-11-21 06:43] LABS: ALBUMIN 2.9 g/dL (3.5-5.0); BILIRUBIN,TOTAL 3.6 mg/dL (0.2-1.0); CREATININE 0.7 mg/dL (0.5-1.5); MAGNESIUM 1.5 mg/dL (1.80-2.40); POTASSIUM 3.7 mmol/L (3.5-5.1); TOTAL PROTEIN, SERUM 7.2 g/dL (6.0-8.3)
[2021-11-21] MEDS: LACTATED RINGERS 1000ML 1,000 ML IV SCH (07:12)
[2021-11-21] MEDS: LACTULOSE 20 GM/30 ML UDCUP PO SCH ×5 (07:15→21:10)
[2021-11-21] MEDS ORDERED: MAGNESIUM 2GM PREMIX 50ML 50 ML IV SCH (08:30)
[2021-11-21] MEDS: THIAMINE HCL 100 MG/ML 2ML VIAL IVP SCH (08:37)
[2021-11-21] MEDS: RIFAXIMIN 550 MG TABLET PO SCH ×3 (08:52→21:02)
[2021-11-21] MEDS ORDERED: PANTOPRAZOLE 40 MG/VIAL IVP SCH (09:00)
[2021-11-21] MEDS: CEFTRIAXONE 1G VIAL IVP SCH (09:06)
[2021-11-21 12:00] VITALS: BP 112/64
[2021-11-21 16:00] VITALS: BP 104/52
[2021-11-21] MEDS: LEVETIRACETAM 500 MG TABLET PO SCH (21:02)
[2021-11-21 21:03] VITALS: BP 119/64
[2021-11-22] VITALS (7 sets, daily range): BP systolic 103–123; BP diastolic 59–72
[2021-11-22] MEDS: LACTULOSE 20 GM/30 ML UDCUP PO SCH ×4 (07:00→23:32)
[2021-11-22 07:18] LABS: BASOPHILS % (AUTO) 0.6 % (0.0-5.0); EOSINOPHILS % (AUTO) 4.1 % (0.0-8.0); HEMATOCRIT 35.4 % (42-54); LYMPHOCYTES % (AUTO) 40.3 % (21.0-51.0); MEAN CORPUSCULAR HEMOGLOBIN 29.8 pg (27.0-33.0); MEAN CORPUSCULAR HGB CONC 34.5 g/dL (32.0-36.0); MEAN CORPUSCULAR VOLUME 86.6 fL (79-99); MONOCYTES % (AUTO) 14.3 % (3.0-13.0); NEUTROPHILS % (AUTO) 40.5 % (40.0-77.0); PLATELET COUNT (AUTO) 83 K/uL (130-400); RED BLOOD CELL COUNT(AUTO) 4.09 MIL/uL (4.50-6.20); WHITE BLOOD COUNT (AUTO) 4.7 K/uL (4.8-10.8)
[2021-11-22 07:30] LABS: ALBUMIN 2.7 g/dL (3.5-5.0); BILIRUBIN,TOTAL 2.5 mg/dL (0.2-1.0); CREATININE 0.9 mg/dL (0.5-1.5); MAGNESIUM 1.8 mg/dL (1.80-2.40); POTASSIUM 3.8 mmol/L (3.5-5.1); TOTAL PROTEIN, SERUM 7.2 g/dL (6.0-8.3)
[2021-11-22] MEDS: RIFAXIMIN 550 MG TABLET PO SCH ×3 (07:40→20:44)
[2021-11-22] MEDS: LORAZEPAM 2 MG/ML 1 ML VIAL IVP PRN ×2 (07:41→21:15)
[2021-11-22] MEDS: PANTOPRAZOLE 40 MG TAB DR PO SCH (07:43)
[2021-11-22] MEDS: LEVETIRACETAM 500 MG TABLET PO SCH ×2 (07:43→20:44)
[2021-11-22] MEDS: THIAMINE HCL 100 MG/ML 2ML VIAL IVP SCH (07:44)
[2021-11-22] MEDS: CEFTRIAXONE 1G VIAL IVP SCH (10:10)
[2021-11-23 03:41] VITALS: BP 128/55
[2021-11-23 04:49] LABS: HEMATOCRIT 36.4 % (42-54); MEAN CORPUSCULAR HEMOGLOBIN 29.2 pg (27.0-33.0); MEAN CORPUSCULAR HGB CONC 33.5 g/dL (32.0-36.0); MEAN CORPUSCULAR VOLUME 87.1 fL (79-99); RED BLOOD CELL COUNT(AUTO) 4.18 MIL/uL (4.50-6.20); WHITE BLOOD COUNT (AUTO) 4.9 K/uL (4.8-10.8)
[2021-11-23 05:09] LABS: CREATININE 0.8 mg/dL (0.5-1.5); POTASSIUM 3.3 mmol/L (3.5-5.1)
[2021-11-23] MEDS: LACTULOSE 20 GM/30 ML UDCUP PO SCH (06:21)
[2021-11-23 08:00] VITALS: BP 121/71
[2021-11-23] MEDS: LEVETIRACETAM 500 MG TABLET PO SCH (09:53)
[2021-11-23] MEDS: THIAMINE HCL 100 MG/ML 2ML VIAL IVP SCH (09:54)
[2021-11-23] MEDS: CEFTRIAXONE 1G VIAL IVP SCH (09:54)
[2021-11-23] MEDS: PANTOPRAZOLE 40 MG TAB DR PO SCH (09:54)
[2021-11-23] MEDS: RIFAXIMIN 550 MG TABLET PO SCH ×2 (09:54)
[2021-11-23 11:37] VITALS: BP 111/64
== END 2021-11-23 13:20 | disposition home or self-care (01) | DRG 442 ==
LOC: EDH 03:06 → EDHIP 03:07 → 4CH 11-21 09:29
PROVIDERS: ADMIT Internal Medicine; ATTEND Internal Medicine
DX: K72.90 Hepatic failure, unspecified without coma (principal); E44.0 Moderate protein-calorie malnutrition; F05 Delirium due to known physiological condition; F10.239 Alcohol dependence with withdrawal, unspecified; G40.909 Epilepsy, unspecified, not intractable, without status epilepticus; Z20.822 Contact with and (suspected) exposure to COVID-19; K70.30 Alcoholic cirrhosis of liver without ascites; I10 Essential (primary) hypertension; D69.6 Thrombocytopenia, unspecified; E86.0 Dehydration
CPT/HCPCS: 36415; 70450; 71045; 74018; 76705; 80048; 80053; 80305; 81001; 82140; 82550; 82948; 83605; 83735; 84145; 85025; 85027; 85610; 85651; 85730; 86140; 87040; 87088; 87635; 92610; 93005; 97039; C9113; C9803; G0378; G0481; J0696; J1630; J1953; J2060; J3411; J3475; J3490; J7030; J7070

== ENCOUNTER 2021-12-02 05:03 | Inpatient (IN) | payer OTHER ==
[~2021-12-02] VITALS: Ht 177.8 cm; Wt 69.2 kg
[~2021-12-02 05:03] MED LIST changes: -FOLI1 PO; -HYDR-3830 PO
[2021-12-02] MEDS ORDERED: LORAZEPAM 2 MG/ML 1 ML VIAL ONE (05:09)
[2021-12-02] MEDS ORDERED: HALOPERIDOL INJ 5 MG/ML VIAL ONE (05:09)
[2021-12-02 05:26] LABS: BASOPHILS % (AUTO) 1.3 % (0.0-5.0); EOSINOPHILS % (AUTO) 5.6 % (0.0-8.0); LYMPHOCYTES % (AUTO) 37.9 % (21.0-51.0); MEAN CORPUSCULAR HEMOGLOBIN 29.1 pg (27.0-33.0); MEAN CORPUSCULAR HGB CONC 32.9 g/dL (32.0-36.0); MEAN CORPUSCULAR VOLUME 88.6 fL (79-99); MONOCYTES % (AUTO) 13.8 % (3.0-13.0); NEUTROPHILS % (AUTO) 41.2 % (40.0-77.0); PLATELET COUNT (AUTO) 92 K/uL (130-400); RED BLOOD CELL COUNT(AUTO) 4.29 MIL/uL (4.50-6.20); RED CELL DISTRIBUTION WIDTH 15.6 % (11.0-15.5); WHITE BLOOD COUNT (AUTO) 5.2 K/uL (4.8-10.8)
[2021-12-02] MEDS ORDERED: LEVETIRACETAM 500 MG/5 ML SD VIAL IV ONE (05:28)
[2021-12-02 05:32] LABS: APPEARANCE,URINE Clear (CLEAR); BILIRUBIN,URINE Negative (NEGATIVE); COLOR,URINE Yellow (YELLOW); GLUCOSE, URINE (UA) Negative (NEGATIVE); KETONES,URINE Negative (NEGATIVE); LEUKOCYTE ESTERASE ,URINE Trace (NEGATIVE); NITRATE,URINE Negative (NEGATIVE); OCCULT BLOOD,URINE Negative (NEGATIVE); PH,URINE 6.5 (5.0-8.0); PROTEIN,URINE Negative (NEGATIVE)
[2021-12-02 05:40] LABS: AMPHET/METH SCREEN,URINE NEGATIVE (NEGATIVE); BARBITURATE SCREEN, URINE NEGATIVE (NEGATIVE); BENZODIAZEPINES SCREEN,URINE NEGATIVE (NEGATIVE); CANNABINOID SCREEN,URINE NEGATIVE (NEGATIVE); COCAINE SCREEN,URINE NEGATIVE (NEGATIVE); OPIATE SCREEN,URINE NEGATIVE (NEGATIVE); PHENCYCLIDINE SCREEN,URINE NEGATIVE (NEGATIVE)
[2021-12-02 05:42] LABS: CARBON DIOXIDE 20 mmol/L (21-32); CHLORIDE 108 mmol/L (101-111); CREATININE 0.9 mg/dL (0.5-1.5); GLOMERULAR FILTR. RATE CALC 95 mL/min (>60); GLUCOSE,RANDOM 112 mg/dL (70-105); POTASSIUM 4.4 mmol/L (3.5-5.1); SODIUM SERUM 139 mmol/L (136-145); UREA NITROGEN, BLOOD 13 mg/dL (7-18)
[2021-12-02 05:42] LABS: BACTERIA,URINE None Seen /HPF (None Seen); MUCUS,URINE Few LPF (None Seen); RBC,URINE None Seen /HPF (0-1); SQUAMOUS EPITHELIAL CELL,UR Few /HPF (0-2); WBC,URINE None Seen /HPF (0-1)
[2021-12-02 05:50] LABS: ALANINE AMINOTRANSFERASE 37 U/L (12-78); ALBUMIN 2.7 g/dL (3.5-5.0); ALCOHOL, BLOOD < 3 mg/dL (0-10); ASPARTATE AMINOTRANSFERASE 59 U/L (10-37); TOTAL PROTEIN, SERUM 6.9 g/dL (6.0-8.3)
[2021-12-02] MEDS ORDERED: LACTULOSE 20 GM/30 ML UDCUP PR SCH (07:00)
[2021-12-02] MEDS ORDERED: PHARMACY COMMUNICATION MISC SCH ×2 (08:30→09:00)
[2021-12-02] MEDS: CEFTRIAXONE 1G VIAL IVP SCH (08:52)
[2021-12-02] MEDS ORDERED: M.V.I. IV [ADULT] 10 ML, FOLIC ACID 1 MG, THIAMINE HCL 100 MG in 0.9%NACL 1000ML 1,000 ML IV ONE (09:00)
[2021-12-02] MEDS: UDCUP PR SCH ×6 (09:00→20:04)
[2021-12-02] MEDS: [UNRECOGNIZED DRUG - OTHER] PR SCH ×6 (09:00→20:04)
[2021-12-02] MEDS: LACTULOSE PR SCH ×6 (09:00→20:04)
[2021-12-02 09:47] LABS: INR 1.23 (0.85-1.15); PROTHROMBIN TIME 13.2 SEC (9.6-11.6)
[2021-12-02 09:49] LABS: PARTIAL THROMBOPLASTIN TIME 27.3 SEC (26.3-35.5)
[2021-12-02 10:15] LABS: ABG BASE EXCESS -4.5 mmol/L (-2.0-3.0); ABG HCO3 20.5 mmol/L (21.0-28.0); ABG OXYGEN SATURATION 98.5 % (95.0-99.0); ABG PCO2 38 mmHg (35-48)
[2021-12-02 18:00] VITALS: BP 121/71
[2021-12-02 20:01] VITALS: BP 113/63
[2021-12-02] MEDS: LEVETIRACETAM 1,000 MG in 0.9%NACL 100ML 100 ML IV SCH ×2 (20:15→20:16)
[2021-12-02] MEDS: LACTULOSE 20 GM/30 ML UDCUP PO SCH (21:16)
[2021-12-03] VITALS: BP 100/62
[2021-12-03 04:00] VITALS: BP 103/54
[2021-12-03 08:00] VITALS: BP 105/55
[2021-12-03] MEDS: RIFAXIMIN 550 MG TABLET PO SCH ×2 (09:34→20:32)
[2021-12-03] MEDS: LACTULOSE 20 GM/30 ML UDCUP PO SCH ×3 (09:35→20:32)
[2021-12-03] MEDS: CEFTRIAXONE 1G VIAL IVP SCH (09:35)
[2021-12-03 09:36] LABS: BASOPHILS % (AUTO) 0.6 % (0.0-5.0); EOSINOPHILS % (AUTO) 2.5 % (0.0-8.0); HEMATOCRIT 34.8 % (42-54); LYMPHOCYTES % (AUTO) 30.2 % (21.0-51.0); MEAN CORPUSCULAR HEMOGLOBIN 29.6 pg (27.0-33.0); MEAN CORPUSCULAR HGB CONC 33.6 g/dL (32.0-36.0); MEAN CORPUSCULAR VOLUME 88.1 fL (79-99); MONOCYTES % (AUTO) 16.1 % (3.0-13.0); NEUTROPHILS % (AUTO) 50.4 % (40.0-77.0); PLATELET COUNT (AUTO) 81 K/uL (130-400); RED BLOOD CELL COUNT(AUTO) 3.95 MIL/uL (4.50-6.20); RED CELL DISTRIBUTION WIDTH 14.9 % (11.0-15.5); WHITE BLOOD COUNT (AUTO) 5.2 K/uL (4.8-10.8)
[2021-12-03] MEDS: LEVETIRACETAM 1,000 MG in 0.9%NACL 100ML 100 ML IV SCH (09:36)
[2021-12-03 09:41] LABS: ALBUMIN 2.6 g/dL (3.5-5.0); BILIRUBIN,TOTAL 2.7 mg/dL (0.2-1.0); CREATININE 0.8 mg/dL (0.5-1.5); MAGNESIUM 1.8 mg/dL (1.80-2.40); POTASSIUM 3.5 mmol/L (3.5-5.1); TOTAL PROTEIN, SERUM 6.7 g/dL (6.0-8.3)
[2021-12-03] MEDS ORDERED: Vitamin B Complex/Vit C/Folic Acid PO SCH (11:00)
[2021-12-03] MEDS ORDERED: LACTATED RINGERS 1000ML 1,000 ML IV SCH (11:00)
[2021-12-03] MEDS ORDERED: COMPOUND IV MISC 1 EACH IVSOLN MISC PRN (11:30)
[2021-12-03] MEDS: 0.9%NACL 1000ML 1,000 ML IV SCH (11:57)
[2021-12-03 12:00] VITALS: BP 104/51
[2021-12-03] MEDS ORDERED: LORAZEPAM 2 MG/ML 1 ML VIAL ONE (15:48)
[2021-12-03] MEDS ORDERED: LORAZEPAM 2 MG/ML 1 ML VIAL IVP ONE (15:48)
[2021-12-03 16:00] VITALS: BP 125/69
[2021-12-03] MEDS ORDERED: LORAZEPAM 2 MG/ML 1 ML VIAL IM PRN (16:30)
[2021-12-03 19:44] VITALS: BP 115/55
[2021-12-03] MEDS: LEVETIRACETAM IV SCH (20:32)
[2021-12-03] MEDS: [UNRECOGNIZED DRUG - OTHER] IV SCH (20:32)
[2021-12-03] MEDS ORDERED: LEVETIRACETAM 500 MG/5 ML SD VIAL IV SCH (21:00)
[2021-12-03] MEDS ORDERED: LORAZEPAM 2 MG/ML 1 ML VIAL IVP PRN (22:30)
[2021-12-04] VITALS (7 sets, daily range): BP systolic 104–123; BP diastolic 44–75
[2021-12-04] MEDS: 0.9%NACL 1000ML 1,000 ML IV SCH ×2 (00:20→13:40)
[2021-12-04 06:22] LABS: BASOPHILS % (AUTO) 1.1 % (0.0-5.0); EOSINOPHILS % (AUTO) 5.2 % (0.0-8.0); LYMPHOCYTES % (AUTO) 36.1 % (21.0-51.0); MEAN CORPUSCULAR HEMOGLOBIN 29.1 pg (27.0-33.0); MEAN CORPUSCULAR HGB CONC 33.2 g/dL (32.0-36.0); MEAN CORPUSCULAR VOLUME 87.7 fL (79-99); MONOCYTES % (AUTO) 14.8 % (3.0-13.0); NEUTROPHILS % (AUTO) 42.6 % (40.0-77.0); PLATELET COUNT (AUTO) 77 K/uL (130-400); RED BLOOD CELL COUNT(AUTO) 4.22 MIL/uL (4.50-6.20); RED CELL DISTRIBUTION WIDTH 14.7 % (11.0-15.5); WHITE BLOOD COUNT (AUTO) 4.7 K/uL (4.8-10.8)
[2021-12-04 06:35] LABS: ALBUMIN 2.7 g/dL (3.5-5.0); BILIRUBIN,TOTAL 1.4 mg/dL (0.2-1.0); CREATININE 0.6 mg/dL (0.5-1.5); MAGNESIUM 1.5 mg/dL (1.80-2.40); TOTAL PROTEIN, SERUM 6.9 g/dL (6.0-8.3)
[2021-12-04] MEDS ORDERED: GADOTERATE MEGLUMINE 10 MMOL/20 ML VIAL IV ONE (07:07)
[2021-12-04] MEDS: RIFAXIMIN 550 MG TABLET PO SCH ×2 (09:46→20:52)
[2021-12-04] MEDS: Vitamin B Complex/Vit C/Folic Acid PO SCH (09:46)
[2021-12-04] MEDS: CEFTRIAXONE 1G VIAL IVP SCH (09:47)
[2021-12-04] MEDS: LACTULOSE 20 GM/30 ML UDCUP PO SCH ×3 (09:49→21:00)
[2021-12-04] MEDS: [UNRECOGNIZED DRUG - OTHER] IV SCH ×2 (12:45→20:52)
[2021-12-04] MEDS: LEVETIRACETAM IV SCH ×2 (12:45→20:52)
[2021-12-05] MEDS: 0.9%NACL 1000ML 1,000 ML IV SCH ×2 (03:00→16:20)
[2021-12-05 04:19] VITALS: BP 110/66
[2021-12-05 05:26] LABS: CREATININE 0.6 mg/dL (0.5-1.5); POTASSIUM 4.1 mmol/L (3.5-5.1)
[2021-12-05] MEDS: Vitamin B Complex/Vit C/Folic Acid PO SCH (08:37)
[2021-12-05] MEDS: RIFAXIMIN 550 MG TABLET PO SCH (08:37)
[2021-12-05] MEDS: LACTULOSE 20 GM/30 ML UDCUP PO SCH ×2 (08:37→15:28)
[2021-12-05] MEDS: CEFTRIAXONE 1G VIAL IVP SCH (08:49)
[2021-12-05] MEDS: [UNRECOGNIZED DRUG - OTHER] IV SCH (09:03)
[2021-12-05] MEDS: LEVETIRACETAM IV SCH (09:03)
[2021-12-05 12:00] VITALS: BP 115/66
[2021-12-05] MEDS ORDERED: LEVE10006 PO (14:20)
[2021-12-05 16:00] VITALS: BP 115/60
[2021-12-05] MEDS ORDERED: LEVETIRACETAM 500 MG TABLET PO SCH (17:00)
== END 2021-12-05 20:00 | disposition home or self-care (01) | DRG 432 ==
LOC: EDH 05:03 → OBSVTOIN 05:04 → EDHIP 05:04 → 2CH 16:22 → 3DH 21:45
PROVIDERS: ADMIT Internal Medicine; ATTEND Internal Medicine
DX: K74.60 Unspecified cirrhosis of liver (principal); G92.8 Other toxic encephalopathy; E87.2 Acidosis; K72.90 Hepatic failure, unspecified without coma; E88.09 Other disorders of plasma-protein metabolism, not elsewhere classified; D69.6 Thrombocytopenia, unspecified; R56.9 Unspecified convulsions
CPT/HCPCS: 36415; 36600; 70450; 70553; 71045; 74018; 76700; 80048; 80053; 80305; 81001; 82140; 82435; 82550; 82803; 82947; 83605; 83735; 84132; 84295; 84484; 85018; 85025; 85610; 85730; 87040; 87088; G0378; J0696; J1630; J1953; J2060; J3411; J3490; J7030

== ENCOUNTER 2022-03-19 19:25 | Inpatient (IN) | payer MEDICAID ==
[~2022-03-19] VITALS: Ht 175.3 cm; Wt 80.7 kg
[2022-03-19] MEDS ORDERED: LEVETIRACETAM 500 MG/5 ML SD VIAL IV SCH (19:30)
[2022-03-19] MEDS ORDERED: LEVETIRACETAM 500 MG/5 ML SD VIAL IV ONE (19:30)
[2022-03-19] MEDS ORDERED: LORAZEPAM 2 MG/ML 1 ML VIAL IVP ONE (19:30)
[2022-03-19 19:47] LABS: BASOPHILS % (AUTO) 0.9 % (0.0-5.0); EOSINOPHILS % (AUTO) 5.5 % (0.0-8.0); HEMATOCRIT 36.6 % (42-54); LYMPHOCYTES % (AUTO) 40.4 % (21.0-51.0); MEAN CORPUSCULAR HEMOGLOBIN 29.3 pg (27.0-33.0); MEAN CORPUSCULAR HGB CONC 34.2 g/dL (32.0-36.0); MEAN CORPUSCULAR VOLUME 85.9 fL (79-99); MONOCYTES % (AUTO) 14.4 % (3.0-13.0); NEUTROPHILS % (AUTO) 38.6 % (40.0-77.0); PLATELET COUNT (AUTO) 115 K/uL (130-400); RED BLOOD CELL COUNT(AUTO) 4.26 MIL/uL (4.50-6.20); RED CELL DISTRIBUTION WIDTH 14.8 % (11.0-15.5); WHITE BLOOD COUNT (AUTO) 5.5 K/uL (4.8-10.8)
[2022-03-19 19:58] LABS: APPEARANCE,URINE CLEAR (CLEAR); BILIRUBIN,URINE NEGATIVE (NEGATIVE); COLOR,URINE YELLOW (YELLOW); GLUCOSE, URINE (UA) NEGATIVE (NEGATIVE); KETONES,URINE NEGATIVE (NEGATIVE); LEUKOCYTE ESTERASE ,URINE NEGATIVE (NEGATIVE); NITRATE,URINE NEGATIVE (NEGATIVE); OCCULT BLOOD,URINE NEGATIVE (NEGATIVE); PH,URINE 6.5 (5.0-8.0); PROTEIN,URINE NEGATIVE (NEGATIVE)
[2022-03-19 20:00] LABS: CREATININE 0.9 mg/dL (0.5-1.5)
[2022-03-19 20:07] LABS: AMPHET/METH SCREEN,URINE NEGATIVE (NEGATIVE); BARBITURATE SCREEN, URINE NEGATIVE (NEGATIVE); BENZODIAZEPINES SCREEN,URINE NEGATIVE (NEGATIVE); CANNABINOID SCREEN,URINE NEGATIVE (NEGATIVE); COCAINE SCREEN,URINE NEGATIVE (NEGATIVE); OPIATE SCREEN,URINE NEGATIVE (NEGATIVE); PHENCYCLIDINE SCREEN,URINE NEGATIVE (NEGATIVE)
[2022-03-19 20:07] LABS: ALBUMIN 3.1 g/dL (3.5-5.0); TOTAL PROTEIN, SERUM 7.3 g/dL (6.0-8.3)
[2022-03-19 20:45] LABS: INR 1.15 (0.85-1.15); PROTHROMBIN TIME 12.4 SEC (9.6-11.6)
[2022-03-19 20:46] LABS: PARTIAL THROMBOPLASTIN TIME 29.6 SEC (26.3-35.5)
[2022-03-19] MEDS ORDERED: LEVE500T19 PO (22:25)
[2022-03-19] MEDS ORDERED: CEPH500C2 PO (22:25)
[2022-03-19] MEDS ORDERED: SULF1TAB42 PO (22:25)
[2022-03-19] MEDS ORDERED: IBUP-2070 PO (22:25)
[2022-03-19] MEDS ORDERED: CITA10TA89 PO (22:25)
[2022-03-19] MEDS ORDERED: TRAZ-187 PO (22:25)
[2022-03-19] MEDS ORDERED: LORAZEPAM 2 MG/ML 1 ML VIAL IVP PRN (23:30)
[2022-03-19] MEDS ORDERED: ONDANSETRON 4MG INJ IVP PRN (23:30)
[2022-03-19] MEDS ORDERED: ACETAMINOPHEN 325 MG TAB PO PRN (23:30)
[2022-03-20] MEDS: LACTULOSE 20 GM/30 ML UDCUP PO SCH ×5 (00:02→22:00)
[2022-03-20 06:06] LABS: BASOPHILS % (AUTO) 0.4 % (0.0-5.0); EOSINOPHILS % (AUTO) 1.4 % (0.0-8.0); HEMATOCRIT 37.3 % (42-54); LYMPHOCYTES % (AUTO) 18.2 % (21.0-51.0); MEAN CORPUSCULAR HEMOGLOBIN 29.5 pg (27.0-33.0); MEAN CORPUSCULAR HGB CONC 34.9 g/dL (32.0-36.0); MEAN CORPUSCULAR VOLUME 84.8 fL (79-99); MONOCYTES % (AUTO) 11.3 % (3.0-13.0); NEUTROPHILS % (AUTO) 68.3 % (40.0-77.0); PLATELET COUNT (AUTO) 95 K/uL (130-400); RED CELL DISTRIBUTION WIDTH 14.3 % (11.0-15.5); WHITE BLOOD COUNT (AUTO) 9.5 K/uL (4.8-10.8)
[2022-03-20 06:13] LABS: CREATININE 0.8 mg/dL (0.5-1.5); POTASSIUM 3.9 mmol/L (3.5-5.1)
[2022-03-20 06:17] LABS: MAGNESIUM 1.5 mg/dL (1.80-2.40); TOTAL PROTEIN, SERUM 7.6 g/dL (6.0-8.3)
[2022-03-20] MEDS ORDERED: ACETAMINOPHEN 650 MG SUPPOSITORY RC ONE (09:56)
[2022-03-20] MEDS ORDERED: ACETAMINOPHEN 325 MG SUPPOSITORY RC PRN (10:00)
[2022-03-20] MEDS ORDERED: THIAMINE HCL 100 MG/ML 2ML VIAL IVP SCH (14:00)
[2022-03-20] MEDS ORDERED: COMPOUND IV REFRIGERATED 1 EACH IVSOLN MISC PRN (15:00)
[2022-03-20] MEDS: THIAMINE HCL 300 MG in 0.9%NACL 50ML 50 ML IV SCH (16:31)
[2022-03-20] MEDS ORDERED: DIAZEPAM 5 MG/ML 2 ML SYG IVP ONE (21:00)
[2022-03-20] MEDS: LEVETIRACETAM 500 MG TABLET PO SCH (21:24)
[2022-03-20] MEDS: CITALOPRAM 20 MG TABLET PO SCH (21:24)
[2022-03-20] MEDS: RIFAXIMIN 550 MG TABLET PO SCH (21:24)
[2022-03-20] MEDS: TRAZODONE HCL 100 MG TABLET PO SCH (21:24)
[2022-03-21 01:35] VITALS: BP 100/61
[2022-03-21 04:00] VITALS: BP 98/60
[2022-03-21] MEDS: LACTULOSE 20 GM/30 ML UDCUP PO SCH ×3 (06:17→22:03)
[2022-03-21 06:51] LABS: ALBUMIN 3.1 g/dL (3.5-5.0); MAGNESIUM 1.7 mg/dL (1.80-2.40); POTASSIUM 4.7 mmol/L (3.5-5.1); TOTAL PROTEIN, SERUM 7.7 g/dL (6.0-8.3)
[2022-03-21 08:00] VITALS: BP 97/59
[2022-03-21] MEDS: LEVETIRACETAM 500 MG TABLET PO SCH ×2 (08:18→22:04)
[2022-03-21] MEDS: RIFAXIMIN 550 MG TABLET PO SCH ×2 (08:18→22:03)
[2022-03-21 12:36] VITALS: BP 87/45
[2022-03-21] MEDS: THIAMINE HCL 300 MG in 0.9%NACL 50ML 50 ML IV SCH (13:32)
[2022-03-21 16:50] VITALS: BP 119/66
[2022-03-21 19:00] VITALS: BP 106/54
[2022-03-21] MEDS: CITALOPRAM 20 MG TABLET PO SCH (22:04)
[2022-03-21] MEDS: TRAZODONE HCL 100 MG TABLET PO SCH (22:04)
[2022-03-21] MEDS: DOXYCYCLINE HYCLATE 100 MG TABLET PO SCH (22:04)
[2022-03-22] VITALS: BP 105/52
[2022-03-22 04:00] VITALS: BP 96/50
[2022-03-22 05:13] LABS: HEMATOCRIT 43.3 % (42-54); MEAN CORPUSCULAR HEMOGLOBIN 28.6 pg (27.0-33.0); MEAN CORPUSCULAR HGB CONC 32.8 g/dL (32.0-36.0); MEAN CORPUSCULAR VOLUME 87.3 fL (79-99); RED BLOOD CELL COUNT(AUTO) 4.96 MIL/uL (4.50-6.20); RED CELL DISTRIBUTION WIDTH 14.6 % (11.0-15.5)
[2022-03-22 05:42] LABS: ALBUMIN 3.2 g/dL (3.5-5.0); CREATININE 0.9 mg/dL (0.5-1.5); MAGNESIUM 1.7 mg/dL (1.80-2.40); TOTAL PROTEIN, SERUM 8.1 g/dL (6.0-8.3)
[2022-03-22] MEDS: LACTULOSE 20 GM/30 ML UDCUP PO SCH ×2 (06:03→13:32)
[2022-03-22 08:00] VITALS: BP 106/58
[2022-03-22] MEDS: RIFAXIMIN 550 MG TABLET PO SCH (08:33)
[2022-03-22] MEDS: DOXYCYCLINE HYCLATE 100 MG TABLET PO SCH (08:33)
[2022-03-22] MEDS: LEVETIRACETAM 500 MG TABLET PO SCH (08:33)
[2022-03-22 12:00] VITALS: BP 100/50
[2022-03-22] MEDS: THIAMINE HCL 300 MG in 0.9%NACL 50ML 50 ML IV SCH (16:18)
[2022-03-23] MEDS ORDERED: HONEY 1 APPL/ML TUBE TP SCH (09:00)
== END 2022-03-22 19:00 | disposition home or self-care (01) | DRG 53 ==
LOC: EDH 19:25 → EDHIP 19:26 → 3CH 03-21 00:54
PROVIDERS: ADMIT Internal Medicine Infectious Disease; ATTEND Internal Medicine Infectious Disease
DX: G40.909 Epilepsy, unspecified, not intractable, without status epilepticus (principal); K72.90 Hepatic failure, unspecified without coma; K70.30 Alcoholic cirrhosis of liver without ascites; F10.129 Alcohol abuse with intoxication, unspecified; E83.42 Hypomagnesemia; Z91.19 Patient's noncompliance with other medical treatment and regimen; S31.829A Unspecified open wound of left buttock, initial encounter; Z74.01 Bed confinement status; X58.XXXA Exposure to other specified factors, initial encounter; Y93.89 Activity, other specified; Y92.89 Other specified places as the place of occurrence of the external cause; Y99.8 Other external cause status
CPT/HCPCS: 36415; 70450; 71045; 80053; 80305; 81003; 82140; 82948; 83036; 83735; 84484; 85025; 85027; 85610; 85730; 93005; G0378; J1953; J2060; J3411

== ENCOUNTER 2022-08-26 14:31 | Emergency (ER) | payer MEDICAID ==
[~2022-08-26] VITALS: Ht 175.3 cm; Wt 63.5 kg
[~2022-08-26 14:31] MED LIST changes: +CEPH500C2 PO; +CITA10TA89 PO; +IBUP-2070 PO; +LEVE500T19 PO; +TRAZ-187 PO
[2022-08-26 16:24] LABS: BASOPHILS % (AUTO) 0.6 % (0.0-5.0); HEMATOCRIT 35.9 % (42-54); LYMPHOCYTES % (AUTO) 38.1 % (21.0-51.0); MEAN CORPUSCULAR VOLUME 85.3 fL (79-99); MONOCYTES % (AUTO) 11.6 % (3.0-13.0); NEUTROPHILS % (AUTO) 45.5 % (40.0-77.0); PLATELET COUNT (AUTO) 95 K/uL (130-400); RED BLOOD CELL COUNT(AUTO) 4.21 MIL/uL (4.50-6.20); RED CELL DISTRIBUTION WIDTH 15.3 % (11.0-15.5); WHITE BLOOD COUNT (AUTO) 4.8 K/uL (4.8-10.8)
[2022-08-26 16:47] LABS: ALBUMIN 3.2 g/dL (3.5-5.0); CREATININE 0.8 mg/dL (0.5-1.5); POTASSIUM 3.8 mmol/L (3.5-5.1); TOTAL PROTEIN, SERUM 7.3 g/dL (6.0-8.3)
[2022-08-26] MEDS ORDERED: LEVETIRACETAM 500 MG/5 ML SD VIAL IV STA (17:46)
[2022-08-26] MEDS ORDERED: LEVETIRACETAM 500 MG TABLET PO ONE (17:49)
[2022-08-26 17:56] VITALS: BP 138/67
== END 2022-08-26 18:28 | disposition home or self-care (01) ==
LOC: EDH 14:31
DX: R56.9 Unspecified convulsions (principal); Z91.14 Patient's other noncompliance with medication regimen; Z79.1 Long term (current) use of non-steroidal anti-inflammatories (NSAID)
CPT/HCPCS: 36415; 80053; 80177; 85025